=== PATIENT | male | born 1960 | race Caucasian/White ===

== ENCOUNTER 2017-03-22 09:53 | Inpatient (IN) | payer OTHER ==
[~2017-03-22] VITALS: Ht 180.3 cm; Wt 163.3 kg
--- NOTE | ~2017-03-22 | EKG ---
[address] [address] ELECTROCARDIOGRAM REPORT Name: ROSELINE ROCHE Room #: 443-P ADM IN M.R.#: [id number] Admission: 03/22/17 Attend Phys: Kiel Gutierrez MD Discharge: Date of : 64 Report #: [id number] THIS REPORT FOR: //name// [facility] ED Test Date: 2017-03-22 Test Time: 10:35:08 Pat Name: ROSELINE ROCHE Department: Room: 443 Gender: M Healthcare Interpreter: : 1960 Requested By: Yomi Fernandez Order Number: [id number] MD: Rebel Ramirez Measurements Intervals [place] Rate: 70 P: -17 WA: 155 QRS: -21 QRSD: 106 T: 28 QT: 400 QTc: 432 Interpretive Statements Sinus rhythm Borderline left axis deviation Low voltage, precordial leads Baseline wander in lead(s) I,III,aVL,aVF No previous ECG available for comparison Electronically Signed On 03-22-2017 17:38:02 CDT by Rebel Ramirez [email or web address] <ELECTRONICALLY SIGNED> By: Rebel Ramirez MD 03/22/17 1738 1035 1035 Rebel Ramirez MD /EPI
--- NOTE | ~2017-03-22 | P ---
[facility] [place] [address] PROCEDURE REPORT Name: ROSELINE ROCHE Room #: 443-P ADM IN M.R.#: [id number] Admission: 03/22/17 Attend Phys: Kiel Gutierrez MD Discharge: Date of : 64 Report #: [id number] THIS REPORT FOR: //name// CC: Phi Gutierrez DATE OF SERVICE: 03/23/2017 PERSONAL PHYSICIAN: Kiel Gutierrez MD CHIEF COMPLAINT: Diabetic foot ulcer. HISTORY OF PRESENT ILLNESS: This is a 57-year-old white male with a longstanding history of diabetes and a chronic ulceration on the plantar aspect of his right foot for the past 3 years, who is admitted now to the hospital for IV antibiotics as well as placement of a skin substitute to stimulate the wound healing. I spoke to the patient about the placement of the skin substitute. He is very agreeable to this and will be done at the bedside. PREPROCEDURE DIAGNOSES: 1. Chronic ulceration, right plantar foot with fat layer exposed. 2. Diabetes mellitus. 3. Generalized debility. POSTPROCEDURE DIAGNOSES: 1. Chronic ulceration, right plantar foot with fat layer exposed. 2. Diabetes mellitus. 3. Generalized debility. PROCEDURE: After timeout was taken and consent was obtained, the patient had excisional debridement done down to and including subcutaneous tissue with removal of viable and nonviable tissue. Curette and scalpel were used for the debridement; 100% of the ulcer was debrided for a total of less than 20 square cm was totally debrided. Predebridement measurements were 4.0 x 3.5 x 0.5 cm. Post-debridement measurements were 4.0 x 4.0 x 0.8 cm. Once the debridement had been performed, the patient had placement of EpiFix skin substitute sample over the wound bed. This was then affixed with Mepitel and Steri-Strips to hold this in place. The nurses were informed to leave this in place for the next two weeks. The patient then had ABD ____ over the area. Bleeding was minimal and easily controlled with ____. The patient tolerated the procedure well. Once [facility] [address] [place] [place] [address] PROCEDURE REPORT Name: ROSELINE ROCHE Room #: 443-P ADM IN [facility].#: [id number] Admission: 03/22/17 Attend Phys: Kiel Gutierrez MD Discharge: Date of : 64 Report #: [id number] again, this was an excisional debridement of less than 20 square cm of subcutaneous tissue with placement of a sample piece of EpiFix skin substitute. By: 09 0403 Jermaine Crenshaw MD /nt
[2017-03-22 09:58] VITALS: BP 136/96
[2017-03-22 10:30] LABS: ABSOLUTE NEUTROPHILS 4.3 thou/uL (1.4-8.2); BASOPHILS 2.1 % (0.0-2.0); EOSINOPHILS 1.8 % (0.0-3.0); HEMATOCRIT 41.9 % (42.0-52.0); HEMOGLOBIN 14.1 gm/dL (14.0-18.0); LYMPHOCYTES 24.1 % (24.0-44.0); MCH 26.7 pg (26.0-34.0); MCHC 33.7 g/dL (28.0-37.0); MCV 79.2 fL (80.0-100.0); MONOCYTES 7.6 % (1.0-8.0); PLATELET COUNT 179 thou/uL (150-400); POLYS 64.4 % (36.0-66.0); RBC 5.29 mil/uL (4.50-6.00); RDW 16.7 % (10.5-14.5); WBC 6.6 thou/uL (4.0-11.0)
[2017-03-22 10:31] LABS: MANUAL DIFF NO
[2017-03-22] MEDS ORDERED: LANTUS100 UNIT/M SUBQ (10:31)
[2017-03-22] MEDS ORDERED: HUMALOG100 UNIT/1 SUBQ (10:32)
[2017-03-22] MEDS ORDERED: KLOR-CON 1010 MEQ PO (10:32)
[2017-03-22] MEDS ORDERED: METFORMIN HCL500 MG PO (10:32)
[2017-03-22] MEDS ORDERED: AMARYL2 MG PO (10:33)
[2017-03-22] MEDS ORDERED: LOPRESSOR25 PO (10:33)
[2017-03-22 10:39] LABS: CALCIUM 9.6 mg/dL (8.5-10.1); CREATININE 0.9 mg/dL (0.7-1.3); POTASSIUM 4.4 mmol/L (3.5-5.1)
[2017-03-22 10:44] LABS: APTT 28.9 Seconds (24.5-32.8); PROTIME 10.6 Seconds (9.3-11.4)
[2017-03-22 10:46] LABS: ALBUMIN 3.6 g/dL (3.4-5.0); TOTAL BILIRUBIN 0.5 mg/dL (<0.1-1.0); TOTAL PROTEIN 8.4 g/dL (6.4-8.2)
[2017-03-22 12:42] VITALS: BP 145/76
[2017-03-22 13:40] VITALS: BP 145/76
[2017-03-22 16:00] VITALS: BP 134/64
[2017-03-22 21:31] VITALS: BP 150/73
[2017-03-22 23:59] VITALS: BP 137/47
[2017-03-23 04:40] VITALS: BP 144/69
[2017-03-23 06:23] LABS: HEMATOCRIT 38.3 % (42.0-52.0); HEMOGLOBIN 12.7 gm/dL (14.0-18.0); MCH 26.3 pg (26.0-34.0); MCV 79.5 fL (80.0-100.0); RBC 4.82 mil/uL (4.50-6.00); RDW 16.7 % (10.5-14.5); WBC 6.4 thou/uL (4.0-11.0)
[2017-03-23 06:41] LABS: CALCIUM 8.8 mg/dL (8.5-10.1); CREATININE 0.7 mg/dL (0.7-1.3); POTASSIUM 3.6 mmol/L (3.5-5.1)
[2017-03-23 07:50] VITALS: BP 129/70
[2017-03-23 16:10] VITALS: BP 147/74
[2017-03-23 20:00] VITALS: BP 165/66
[2017-03-24 06:15] VITALS: BP 169/75
[2017-03-24 08:11] VITALS: BP 142/79
[2017-03-24 14:27] VITALS: BP 134/64
[2017-03-24 19:12] VITALS: BP 155/80
[2017-03-25 05:37] VITALS: BP 156/76
[2017-03-25 08:44] VITALS: BP 144/78
[2017-03-25] MEDS ORDERED: DOXYCYCLINE 10100 MG PO (10:42)
== END 2017-03-25 13:30 | DRG 623 ==
LOC: ER 09:53 → 4S 11:09 → EROBS 11:09 → 4S 12:44
PROVIDERS: Hospitalist; Nurse Practitioner
PROC: 0HRMXK3 Replacement of Right Foot Skin with Nonautologous Tissue Substitute, Full Thickness, External Approach (ICD-10-PCS; principal; 2017-03-23)
PROC: 0JBQ0ZZ Excision of Right Foot Subcutaneous Tissue and Fascia, Open Approach (ICD-10-PCS; principal; 2017-03-23)
DX: E11.621 Type 2 diabetes mellitus with foot ulcer (principal); Z68.43 Body mass index [BMI] 50.0-59.9, adult; L97.519 Non-pressure chronic ulcer of other part of right foot with unspecified severity; I10 Essential (primary) hypertension; Z79.4 Long term (current) use of insulin; Z79.84 Long term (current) use of oral hypoglycemic drugs; Z79.899 Other long term (current) drug therapy; E66.9 Obesity, unspecified
CPT/HCPCS: 10102

== ENCOUNTER → 2017-05-23 | Outpatient (CLI) | payer OTHER ==
[~2017-05-23] MED LIST: AMARYL2 MG PO; DOXYCYCLINE 10100 MG PO; HUMALOG100 UNIT/1 SUBQ; KLOR-CON 1010 MEQ PO; LANTUS100 UNIT/M SUBQ; LOPRESSOR25 PO; METFORMIN HCL500 MG PO
== END ==
LOC: HYPER 06:59
DX: E11.621 Type 2 diabetes mellitus with foot ulcer (principal); L97.511 Non-pressure chronic ulcer of other part of right foot limited to breakdown of skin; E11.618 Type 2 diabetes mellitus with other diabetic arthropathy; E11.51 Type 2 diabetes mellitus with diabetic peripheral angiopathy without gangrene; I10 Essential (primary) hypertension; M19.90 Unspecified osteoarthritis, unspecified site; Z89.411 Acquired absence of right great toe; Z79.4 Long term (current) use of insulin; Z79.84 Long term (current) use of oral hypoglycemic drugs; Z89.421 Acquired absence of other right toe(s)

== ENCOUNTER → 2017-06-05 | Outpatient (CLI) | payer OTHER ==
[~2017-06-05] MED LIST changes: +GLUCOPHAGE1000 MG PO; +KEFLEX500 M1 PO; +LASIX 40 MG TAB40 M2 PO; +NOVOLOG100 UNIT/1 SUBQ
== END ==
LOC: HYPER 07:14
DX: E11.621 Type 2 diabetes mellitus with foot ulcer (principal); L97.422 Non-pressure chronic ulcer of left heel and midfoot with fat layer exposed; E11.618 Type 2 diabetes mellitus with other diabetic arthropathy; I10 Essential (primary) hypertension; M19.90 Unspecified osteoarthritis, unspecified site; E11.51 Type 2 diabetes mellitus with diabetic peripheral angiopathy without gangrene; Z89.411 Acquired absence of right great toe; Z79.84 Long term (current) use of oral hypoglycemic drugs; Z79.4 Long term (current) use of insulin; Z89.421 Acquired absence of other right toe(s)

== ENCOUNTER → 2017-06-19 | Outpatient (CLI) | payer OTHER | LOC: HYPER 07:02 | DX: E11.621 Type 2 diabetes mellitus with foot ulcer (principal); L97.412 Non-pressure chronic ulcer of right heel and midfoot with fat layer exposed; E11.40 Type 2 diabetes mellitus with diabetic neuropathy, unspecified; E11.610 Type 2 diabetes mellitus with diabetic neuropathic arthropathy; I73.9 Peripheral vascular disease, unspecified; I10 Essential (primary) hypertension; L84 Corns and callosities; M19.90 Unspecified osteoarthritis, unspecified site; Z89.421 Acquired absence of other right toe(s); Z79.4 Long term (current) use of insulin; Z79.84 Long term (current) use of oral hypoglycemic drugs ==

== ENCOUNTER → 2017-07-14 | Outpatient (CLI) | payer OTHER | LOC: HYPER 07-03 06:45 | DX: E11.621 Type 2 diabetes mellitus with foot ulcer (principal); L97.422 Non-pressure chronic ulcer of left heel and midfoot with fat layer exposed; E11.610 Type 2 diabetes mellitus with diabetic neuropathic arthropathy; E11.51 Type 2 diabetes mellitus with diabetic peripheral angiopathy without gangrene; I10 Essential (primary) hypertension; L84 Corns and callosities; M19.90 Unspecified osteoarthritis, unspecified site; Z79.4 Long term (current) use of insulin; Z79.84 Long term (current) use of oral hypoglycemic drugs; Z89.421 Acquired absence of other right toe(s) ==

== ENCOUNTER → 2017-07-31 | Outpatient (CLI) | payer OTHER | LOC: HYPER 07:13 | DX: E11.621 Type 2 diabetes mellitus with foot ulcer (principal); L97.512 Non-pressure chronic ulcer of other part of right foot with fat layer exposed; E11.610 Type 2 diabetes mellitus with diabetic neuropathic arthropathy; E11.51 Type 2 diabetes mellitus with diabetic peripheral angiopathy without gangrene; I10 Essential (primary) hypertension; L84 Corns and callosities; M19.90 Unspecified osteoarthritis, unspecified site; Z79.4 Long term (current) use of insulin; Z79.84 Long term (current) use of oral hypoglycemic drugs; Z89.411 Acquired absence of right great toe; Z89.421 Acquired absence of other right toe(s) ==

== ENCOUNTER → 2017-08-21 | Outpatient (CLI) | payer OTHER | LOC: HYPER 06:59 | DX: E11.621 Type 2 diabetes mellitus with foot ulcer (principal); L97.422 Non-pressure chronic ulcer of left heel and midfoot with fat layer exposed; E11.610 Type 2 diabetes mellitus with diabetic neuropathic arthropathy; E11.51 Type 2 diabetes mellitus with diabetic peripheral angiopathy without gangrene; I10 Essential (primary) hypertension; M19.90 Unspecified osteoarthritis, unspecified site; Z79.4 Long term (current) use of insulin; Z79.84 Long term (current) use of oral hypoglycemic drugs; Z89.411 Acquired absence of right great toe ==

== ENCOUNTER → 2017-09-11 | Outpatient (CLI) | payer OTHER ==
[~2017-09-11] MED LIST changes: -GLUCOPHAGE1000 MG PO; -KEFLEX500 M1 PO; -LASIX 40 MG TAB40 M2 PO; -NOVOLOG100 UNIT/1 SUBQ
== END ==
LOC: HYPER 08:45
DX: E11.621 Type 2 diabetes mellitus with foot ulcer (principal); L97.422 Non-pressure chronic ulcer of left heel and midfoot with fat layer exposed; E11.51 Type 2 diabetes mellitus with diabetic peripheral angiopathy without gangrene; I10 Essential (primary) hypertension; Z79.4 Long term (current) use of insulin; Z79.84 Long term (current) use of oral hypoglycemic drugs; M19.90 Unspecified osteoarthritis, unspecified site; Z89.411 Acquired absence of right great toe; Z89.421 Acquired absence of other right toe(s)

== ENCOUNTER → 2017-11-17 | Outpatient (CLI) | payer OTHER ==
[~2017-11-17] MED LIST changes: +GLUCOPHAGE1000 MG PO; +KEFLEX500 M1 PO; +LASIX 40 MG TAB40 M2 PO; +NOVOLOG100 UNIT/1 SUBQ
== END ==
LOC: HYPER 06:58
DX: E11.621 Type 2 diabetes mellitus with foot ulcer (principal); L97.412 Non-pressure chronic ulcer of right heel and midfoot with fat layer exposed; L97.422 Non-pressure chronic ulcer of left heel and midfoot with fat layer exposed; E11.610 Type 2 diabetes mellitus with diabetic neuropathic arthropathy; E11.51 Type 2 diabetes mellitus with diabetic peripheral angiopathy without gangrene; I10 Essential (primary) hypertension; L84 Corns and callosities; M19.90 Unspecified osteoarthritis, unspecified site; Z68.42 Body mass index [BMI] 45.0-49.9, adult; Z79.4 Long term (current) use of insulin; Z79.84 Long term (current) use of oral hypoglycemic drugs; Z89.411 Acquired absence of right great toe; Z89.421 Acquired absence of other right toe(s)

== ENCOUNTER → 2017-11-20 | Outpatient (CLI) | payer OTHER | LOC: HYPER 07:09 | DX: E11.621 Type 2 diabetes mellitus with foot ulcer (principal); L97.422 Non-pressure chronic ulcer of left heel and midfoot with fat layer exposed; E11.51 Type 2 diabetes mellitus with diabetic peripheral angiopathy without gangrene; E11.610 Type 2 diabetes mellitus with diabetic neuropathic arthropathy; I10 Essential (primary) hypertension; L84 Corns and callosities; Z79.4 Long term (current) use of insulin; Z79.84 Long term (current) use of oral hypoglycemic drugs; Z68.42 Body mass index [BMI] 45.0-49.9, adult; Z89.411 Acquired absence of right great toe; Z89.421 Acquired absence of other right toe(s) ==

== ENCOUNTER → 2017-11-27 | Outpatient (CLI) | payer OTHER | LOC: HYPER 07:27 | DX: E11.621 Type 2 diabetes mellitus with foot ulcer (principal); L97.422 Non-pressure chronic ulcer of left heel and midfoot with fat layer exposed; E11.51 Type 2 diabetes mellitus with diabetic peripheral angiopathy without gangrene; E11.610 Type 2 diabetes mellitus with diabetic neuropathic arthropathy; I10 Essential (primary) hypertension; L84 Corns and callosities; M19.90 Unspecified osteoarthritis, unspecified site; Z89.411 Acquired absence of right great toe; Z68.42 Body mass index [BMI] 45.0-49.9, adult; Z79.4 Long term (current) use of insulin; Z79.84 Long term (current) use of oral hypoglycemic drugs; Z89.421 Acquired absence of other right toe(s) ==

== ENCOUNTER → 2017-12-04 | Outpatient (CLI) | payer OTHER | LOC: HYPER 06:55 | DX: E11.621 Type 2 diabetes mellitus with foot ulcer (principal); L97.422 Non-pressure chronic ulcer of left heel and midfoot with fat layer exposed; E11.610 Type 2 diabetes mellitus with diabetic neuropathic arthropathy; E11.51 Type 2 diabetes mellitus with diabetic peripheral angiopathy without gangrene; I10 Essential (primary) hypertension; M19.90 Unspecified osteoarthritis, unspecified site; Z89.411 Acquired absence of right great toe; Z79.4 Long term (current) use of insulin; Z79.84 Long term (current) use of oral hypoglycemic drugs; Z89.421 Acquired absence of other right toe(s) ==

== ENCOUNTER → 2017-12-11 | Outpatient (CLI) | payer OTHER | LOC: HYPER 07:03 | DX: E11.621 Type 2 diabetes mellitus with foot ulcer (principal); L97.422 Non-pressure chronic ulcer of left heel and midfoot with fat layer exposed; E11.51 Type 2 diabetes mellitus with diabetic peripheral angiopathy without gangrene; E11.610 Type 2 diabetes mellitus with diabetic neuropathic arthropathy; I10 Essential (primary) hypertension; L84 Corns and callosities; M19.90 Unspecified osteoarthritis, unspecified site; Z89.411 Acquired absence of right great toe; Z79.4 Long term (current) use of insulin; Z79.84 Long term (current) use of oral hypoglycemic drugs; Z89.421 Acquired absence of other right toe(s) ==

== ENCOUNTER → 2017-12-18 | Outpatient (CLI) | payer OTHER | LOC: HYPER 06:54 | DX: E11.621 Type 2 diabetes mellitus with foot ulcer (principal); L97.511 Non-pressure chronic ulcer of other part of right foot limited to breakdown of skin; L97.422 Non-pressure chronic ulcer of left heel and midfoot with fat layer exposed; E11.51 Type 2 diabetes mellitus with diabetic peripheral angiopathy without gangrene; E11.610 Type 2 diabetes mellitus with diabetic neuropathic arthropathy; I10 Essential (primary) hypertension; L84 Corns and callosities; M19.90 Unspecified osteoarthritis, unspecified site; Z68.42 Body mass index [BMI] 45.0-49.9, adult; Z79.4 Long term (current) use of insulin; Z79.84 Long term (current) use of oral hypoglycemic drugs; Z89.411 Acquired absence of right great toe; Z89.421 Acquired absence of other right toe(s) ==

== ENCOUNTER → 2017-12-25 | Outpatient (CLI) | payer OTHER | LOC: HYPER 06:52 | DX: E11.621 Type 2 diabetes mellitus with foot ulcer (principal); L97.511 Non-pressure chronic ulcer of other part of right foot limited to breakdown of skin; L97.422 Non-pressure chronic ulcer of left heel and midfoot with fat layer exposed; E11.610 Type 2 diabetes mellitus with diabetic neuropathic arthropathy; E11.51 Type 2 diabetes mellitus with diabetic peripheral angiopathy without gangrene; I10 Essential (primary) hypertension; L84 Corns and callosities; M19.90 Unspecified osteoarthritis, unspecified site; Z89.411 Acquired absence of right great toe; Z79.4 Long term (current) use of insulin; Z79.84 Long term (current) use of oral hypoglycemic drugs; Z89.421 Acquired absence of other right toe(s) ==

== ENCOUNTER → 2018-01-01 | Outpatient (CLI) | payer OTHER | LOC: HYPER 06:41 | DX: E11.621 Type 2 diabetes mellitus with foot ulcer (principal); L97.511 Non-pressure chronic ulcer of other part of right foot limited to breakdown of skin; L97.422 Non-pressure chronic ulcer of left heel and midfoot with fat layer exposed; E11.51 Type 2 diabetes mellitus with diabetic peripheral angiopathy without gangrene; E11.610 Type 2 diabetes mellitus with diabetic neuropathic arthropathy; I10 Essential (primary) hypertension; L84 Corns and callosities; M19.90 Unspecified osteoarthritis, unspecified site; Z89.411 Acquired absence of right great toe; Z79.4 Long term (current) use of insulin; Z79.84 Long term (current) use of oral hypoglycemic drugs; Z89.421 Acquired absence of other right toe(s) ==

== ENCOUNTER → 2018-02-16 | Outpatient (CLI) | payer OTHER | LOC: HYPER 07:38 | DX: E11.621 Type 2 diabetes mellitus with foot ulcer (principal); L97.511 Non-pressure chronic ulcer of other part of right foot limited to breakdown of skin; L97.422 Non-pressure chronic ulcer of left heel and midfoot with fat layer exposed; E11.51 Type 2 diabetes mellitus with diabetic peripheral angiopathy without gangrene; E11.610 Type 2 diabetes mellitus with diabetic neuropathic arthropathy; L84 Corns and callosities; I10 Essential (primary) hypertension; M19.90 Unspecified osteoarthritis, unspecified site; Z89.421 Acquired absence of other right toe(s); Z79.4 Long term (current) use of insulin; Z79.84 Long term (current) use of oral hypoglycemic drugs; Z89.411 Acquired absence of right great toe ==

== ENCOUNTER → 2018-03-05 | Outpatient (CLI) | payer OTHER | LOC: HYPER 06:58 | DX: E11.621 Type 2 diabetes mellitus with foot ulcer (principal); L97.422 Non-pressure chronic ulcer of left heel and midfoot with fat layer exposed; E11.51 Type 2 diabetes mellitus with diabetic peripheral angiopathy without gangrene; E11.610 Type 2 diabetes mellitus with diabetic neuropathic arthropathy; I10 Essential (primary) hypertension; L84 Corns and callosities; M19.90 Unspecified osteoarthritis, unspecified site; Z89.411 Acquired absence of right great toe; Z79.4 Long term (current) use of insulin; Z79.84 Long term (current) use of oral hypoglycemic drugs; Z89.421 Acquired absence of other right toe(s) ==

== ENCOUNTER → 2018-03-12 | Outpatient (CLI) | payer OTHER | LOC: HYPER 06:55 | DX: E11.621 Type 2 diabetes mellitus with foot ulcer (principal); L97.511 Non-pressure chronic ulcer of other part of right foot limited to breakdown of skin; L84 Corns and callosities; E11.51 Type 2 diabetes mellitus with diabetic peripheral angiopathy without gangrene; E11.610 Type 2 diabetes mellitus with diabetic neuropathic arthropathy; I10 Essential (primary) hypertension; M19.90 Unspecified osteoarthritis, unspecified site; Z89.411 Acquired absence of right great toe; Z89.421 Acquired absence of other right toe(s); Z79.4 Long term (current) use of insulin; Z79.84 Long term (current) use of oral hypoglycemic drugs ==

== ENCOUNTER → 2018-03-19 | Outpatient (CLI) | payer OTHER | LOC: HYPER 06:51 | DX: E11.621 Type 2 diabetes mellitus with foot ulcer (principal); L97.511 Non-pressure chronic ulcer of other part of right foot limited to breakdown of skin; L84 Corns and callosities; E11.610 Type 2 diabetes mellitus with diabetic neuropathic arthropathy; E11.51 Type 2 diabetes mellitus with diabetic peripheral angiopathy without gangrene; I10 Essential (primary) hypertension; M19.90 Unspecified osteoarthritis, unspecified site; Z79.4 Long term (current) use of insulin; Z89.411 Acquired absence of right great toe; Z89.421 Acquired absence of other right toe(s) ==

== ENCOUNTER → 2018-03-26 | Outpatient (CLI) | payer OTHER | LOC: HYPER 06:53 | DX: E11.621 Type 2 diabetes mellitus with foot ulcer (principal); L97.511 Non-pressure chronic ulcer of other part of right foot limited to breakdown of skin; E11.51 Type 2 diabetes mellitus with diabetic peripheral angiopathy without gangrene; E11.610 Type 2 diabetes mellitus with diabetic neuropathic arthropathy; L84 Corns and callosities; M19.90 Unspecified osteoarthritis, unspecified site; I10 Essential (primary) hypertension; Z79.4 Long term (current) use of insulin; Z79.84 Long term (current) use of oral hypoglycemic drugs; Z89.411 Acquired absence of right great toe; Z89.421 Acquired absence of other right toe(s) ==

== ENCOUNTER → 2018-04-27 | Outpatient (CLI) | payer OTHER | LOC: HYPER 04-09 07:11 | DX: E11.621 Type 2 diabetes mellitus with foot ulcer (principal); L97.422 Non-pressure chronic ulcer of left heel and midfoot with fat layer exposed; L84 Corns and callosities; E11.610 Type 2 diabetes mellitus with diabetic neuropathic arthropathy; E11.51 Type 2 diabetes mellitus with diabetic peripheral angiopathy without gangrene; I10 Essential (primary) hypertension; M19.90 Unspecified osteoarthritis, unspecified site; Z79.4 Long term (current) use of insulin; Z79.84 Long term (current) use of oral hypoglycemic drugs; Z89.411 Acquired absence of right great toe; Z89.421 Acquired absence of other right toe(s) ==

== ENCOUNTER 2018-12-24 16:13 | Inpatient (IN) | payer OTHER ==
[~2018-12-24] VITALS: Ht 180.3 cm; Wt 105.3 kg
[~2018-12-24 16:13] MED LIST changes: -ENOXAPARIN40 MG/0.1 SUBQ; -HYDROCODON-ACE1 EAC7 PO; -ZOSYN 3.3753.375 GM IV
[2018-12-24 16:14] VITALS: BP 99/69
[2018-12-24 17:03] LABS: ABSOLUTE NEUTROPHILS 4.5 thou/uL (1.4-8.2); BASOPHILS 1.4 % (0.0-2.0); EOSINOPHILS 1.4 % (0.0-3.0); HEMATOCRIT 43.2 % (42.0-52.0); HEMOGLOBIN 14.3 gm/dL (14.0-18.0); LYMPHOCYTES 24.6 % (24.0-44.0); MCH 26.8 pg (26.0-34.0); MCHC 33.1 g/dL (28.0-37.0); MCV 80.9 fL (80.0-100.0); PLATELET COUNT 143 thou/uL (150-400); POLYS 64.6 % (36.0-66.0); RBC 5.34 mil/uL (4.50-6.00)
[2018-12-24 17:10] LABS: CALCIUM 8.7 mg/dL (8.5-10.1); CREATININE 0.9 mg/dL (0.7-1.3); POTASSIUM 4.2 mmol/L (3.5-5.1)
[2018-12-24 17:16] LABS: ALBUMIN 3.3 g/dL (3.4-5.0); TOTAL BILIRUBIN 0.6 mg/dL (<0.1-1.0); TOTAL PROTEIN 7.5 g/dL (6.4-8.2)
[2018-12-24] MEDS ORDERED: LANTUS100 UNIT/M SUBQ (18:09)
[2018-12-24] MEDS ORDERED: METFORMIN HCL500 MG PO (18:10)
[2018-12-24] MEDS ORDERED: AMARYL2 MG PO (18:10)
[2018-12-24 19:35] LABS: ALBUMIN 3.4 g/dL (3.4-5.0); TOTAL PROTEIN 7.7 g/dL (6.4-8.2)
[2018-12-24 20:00] LABS: TSH 1.748 uIU/mL (0.358-3.740)
[2018-12-25 05:18] LABS: HEMATOCRIT 40.4 % (42.0-52.0); HEMOGLOBIN 13.4 gm/dL (14.0-18.0); MCH 26.8 pg (26.0-34.0); MCHC 33.2 g/dL (28.0-37.0); MCV 80.7 fL (80.0-100.0); RDW 15.9 % (10.5-14.5); WBC 7.3 thou/uL (4.0-11.0)
[2018-12-25 05:27] LABS: CALCIUM 8.5 mg/dL (8.5-10.1); CREATININE 0.7 mg/dL (0.7-1.3); MAGNESIUM 1.8 mg/dL (1.8-2.4); POTASSIUM 3.9 mmol/L (3.5-5.1)
[2018-12-25 13:07] VITALS: BP 126/64
[2018-12-25 13:54] VITALS: BP 133/65; BP 140/68
[2018-12-25 14:37] VITALS: BP 149/65
[2018-12-25 19:47] VITALS: BP 151/87
--- NOTE | 2018-12-25 21:00 | NUR ---
ASSUMED CARE OF PATIENT APPROX. 1430. PATIENT VITALS STABLE, NO SIGNS OF DISTRESS. IV IN RIGHT FOREARM PATENT. ASSESSMENT COMPLETED. WOUND CARE IN TO EVALUATE AND DRESS WOUND. WILL CONTINUE TO MONITOR.
--- NOTE | 2018-12-26 04:53 | NUR ---
Patient alert and oriented x4. Patient pleasant and cooperative. Patient tearful at one point but would not discuss as to why. Patient has denied pain throughout the night. Patient took medication whole without difficulty. Right foot dressing is currently clean, dry and intact. Patient received dose of abx Vancomycin. Tolerated well. Patient ambulates to the bathroom with SBA. Continent of bladder. Patient needs education re-inforced regarding using call light and waiting for staff assist prior to transfers and completion of ADLs. Patient remains a fall risk. Patient had a fall approximately 2 months ago that caused a shoulder fracture. Patient has been resting well through the night. Patient expresses no concers at this time.
[2018-12-26 06:06] LABS: HEMATOCRIT 40.6 % (42.0-52.0); HEMOGLOBIN 13.3 gm/dL (14.0-18.0); MCH 26.5 pg (26.0-34.0); MCHC 32.8 g/dL (28.0-37.0); RBC 5.01 mil/uL (4.50-6.00); RDW 15.9 % (10.5-14.5); WBC 6.5 thou/uL (4.0-11.0)
[2018-12-26 06:17] LABS: CALCIUM 9.2 mg/dL (8.5-10.1); CREATININE 0.8 mg/dL (0.7-1.3); POTASSIUM 3.9 mmol/L (3.5-5.1)
[2018-12-26 08:02] VITALS: BP 143/78
[2018-12-26 09:35] VITALS: BP 143/78
--- NOTE | 2018-12-26 09:43 | NUR ---
Order received for OT Eval and treat. Pt declines OT stating that he is independent with self care and functional mobility and does not require acute OT at this time. Will discharge from OT, 12/26/2018.
--- NOTE | 2018-12-26 13:12 | HC ---
[facility] [place] [address] CONSULTATION Name: ROSELINE ROCHE Room #: 462-P ADM IN M.R.#: [id number] Admission: 12/24/18 ������������������ Attend Phys: Estrellita Washington MD Discharge: ������������������ Date of : 64 Report #: [id number] THIS REPORT FOR: //name// CC: JEWELL physician/PCP CRYSTAL Washington DATE OF SERVICE: 12/25/2018 CHIEF COMPLAINT: Diabetic foot ulcer. HISTORY OF PRESENT ILLNESS: This is a 58-year-old male patient with a history of type 2 diabetes mellitus, who presented to the wound clinic with a new ulceration on the plantar aspect of his right foot. He states this started about 2 weeks ago with a very small area and has grown with increasing drainage and redness and swelling of his foot. He is quite concerned about the possibility of losing his foot through amputation. He was admitted through the Wound Clinic for further evaluation and treatment, antibiotic therapy. PAST MEDICAL HISTORY: Positive for history of type 2 diabetes mellitus, hypertension, previous right hip surgery, multiple toe amputations on the right side, peripheral neuropathy. SOCIAL HISTORY: Negative for alcohol or tobacco use. FAMILY HISTORY: Positive for diabetes and pulmonary emboli. MEDICATIONS: Include insulin, Klor-Con, Lasix, Lopressor, Lantus, Glucophage, Amaryl. ALLERGIES: No known drug allergies. REVIEW OF SYSTEMS: CONSTITUTIONAL: The patient denies fever, chills or weight loss. NEUROLOGICAL: The patient has peripheral neuropathy. Denies other focal weakness, numbness or tingling. EYES: The patient denies visual changes, redness, or drainage. ENT: The patient denies earache, nasal drainage or sore throat. CARDIOVASCULAR: The patient denies chest pain, palpitations or diaphoresis. PULMONARY: The patient denies cough or shortness of breath. GASTROINTESTINAL: The patient denies nausea, vomiting, diarrhea or abdominal pain. ORTHOPEDIC: The patient does complain of swelling, redness and drainage as well as new ulceration on the plantar aspect of his right foot. Other systems in a 14-point review of systems are negative. [facility] [address] [place] [address] CONSULTATION Name: ROSELINE ROCHE Room #: 462-P [facility] IN M.R.#: [id number] Admission: 12/24/18 ������������������ Attend Phys: Estrellita Washington MD Discharge: ������������������ Date of : 64 Report #: [id number] PHYSICAL EXAMINATION: VITAL SIGNS: At this time include temperature 37.2, pulse 87, respiratory rate 22, blood pressure 149/65. GENERAL: This is a well-developed male patient who appears to be in minimal distress. HEENT: Head normocephalic. Nose and throat clear. NECK: Supple. LUNGS: Clear. HEART: Regular. ABDOMEN: Bowel sounds present. Abdomen is obese, nontender. EXTREMITIES: Lower extremities demonstrate palpable distal pulses. He has a circular ulcer on the plantar aspect of his right foot at the base of the fifth metatarsal. This does tunnel very close to bone, although there is no exposed bone. The tissue is healthy, clean, and granulating. There is surrounding erythema and warmth. LABORATORY AND DIAGNOSTIC DATA: Laboratory studies include white blood cell count 7.3 with hemoglobin 13.4, hematocrit 40.4. Sodium 140, potassium 3.9, chloride 102, CO2 of 30, BUN 16, creatinine 0.7, glucose is 168, calcium 8.5, magnesium 1.8, CRP is 10.6. X-ray of the right foot demonstrates no bony abnormality, but evidence of soft tissue ulceration approaching the fifth metatarsal shaft. CLINICAL IMPRESSION: 1. Diabetic foot infection to the right foot. 2. Wound infection involving the deeper portion of the foot, approaching the base of the fifth metatarsal. 3. Diabetes mellitus with hyperglycemia. 4. Diabetic peripheral neuropathy. RECOMMENDATIONS: At this point in time, the patient is started on empiric antibiotic therapy. Cultures have been taken from the foot. We will look at sed rate, CRP as well as obtain an MRI. Start packing the wound daily with silver alginate. He will need to offload as much as possible and additional decision making be forthcoming pending review of the radiological studies. I appreciate being asked to see him in consultation. ��������������������������������������������� <ELECTRONICALLY SIGNED> ���������������������������������������� By: Ze Zhao MD ��������������������������������������������� 12/26/18 1312 1611 0900 Ze Zhao MD /nt
--- NOTE | 2018-12-26 13:45 | NUR ---
Nutrition: pt seen due to dx of right foot diabetic ulcer, sent to hospital by wound clinic. Familiar with pt from previous admits. Extreme class 3 obesity with BMI 53. BG 131-291. Last A1C 9.0 in September. Weights showing possible increase of 14# since September if accurate. Pt has a very good appetite, understands protein needs. Does drink a protein supplement at home. RD will offer Ensure max daily (appropriate for DM). Have offered diet review on several admits and pt continues to refuse stating he knows what to do. Noncompliance is suspected. Would benefit from weight loss. RD available for education needs if pt open. Otherwise consider low nutrition risk.
[2018-12-26 14:53] VITALS: BP 135/84
--- NOTE | 2018-12-26 17:04 | NUR ---
PT ADMITTED RELATED TO RIGHT FOOT DIABETIC ULCER. CM REVIEWED CHART AND SPOKE WITH CARE TEAM. CM MET WITH PT AT BEDSIDE THIS DAY. PT IS A&O X4. CM ROLE INTRODUCED. PT INDICATED HE LIVES IN A HOUSE WITH HIS SPOUSE WITH NO STEPS. 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 PT INDICATED NO DME OR HH HX. PT INDICATED HE PLANS TO RETURN HOME ONCE MEDICALLY STABLE. CM TO FOLLOW INDICATED WITH DC PLANNING.
--- NOTE | 2018-12-26 19:32 | NUR ---
ASSUMED CARE OF PATIENT AT 0715, PATIENT ALERT AND ORIENTED X 4. PATIENT UP WITH SBA TO BATHROOM, FALL RISK DUE TO RECENT FALL AT HOME 2 MONTHS AGO. PATIENT HAS RIGHT AC IV IN PLACE, RECEIVED VANCO IV ANTIBIOTIC THIS SHIFT. BLOOD SUGAR MONITORING ORDERED. WOUND CARE SAW THE PATIENT AND WOUND WAS DONE, PICTURE TAKEN. MRI TO RIGHT FOOT TODAY. NO C/O PAIN THIS SHIFT. WILL CONTINUE TO MONITOR.
[2018-12-27 06:00] LABS: HEMATOCRIT 39.7 % (42.0-52.0); HEMOGLOBIN 13.1 gm/dL (14.0-18.0); MCH 26.8 pg (26.0-34.0); MCHC 33.1 g/dL (28.0-37.0); MCV 80.9 fL (80.0-100.0); RBC 4.91 mil/uL (4.50-6.00); WBC 6.9 thou/uL (4.0-11.0)
[2018-12-27 06:05] LABS: CALCIUM 8.8 mg/dL (8.5-10.1); CREATININE 0.7 mg/dL (0.7-1.3); MAGNESIUM 1.9 mg/dL (1.8-2.4); POTASSIUM 3.8 mmol/L (3.5-5.1)
[2018-12-27 07:33] VITALS: BP 127/66
--- NOTE | 2018-12-27 09:36 | NUR ---
PROGRESS PT A/O X4 DENIES PAIN ANTIBIOTICS INFUSED ORDERED UP WITH SBA VOIDING QS ACCUCHECKS AND LANTUS CONTINUES. DRESSING C/D/I POST OP BOOT IN PLACE CONTINUE POC.
--- NOTE | 2018-12-27 18:27 | NUR ---
PATIENT ALERT AND ORIENTED X 4. LCTA, RESPIRATION EVEN AND UNLABORED. BS+X4, ABD SOFT AND ROUND NON-TENDER TO TOUCH. PATIENT CONSUMED 100% BREAKFAST. THIS RN RECEIVED CALL FROM WOUND CARE NURSE AT ABOUT 1100HOUR TO PLACE PATIENT ON NPO STATUS DUE TO SURGERY TO RIGHT FOOT. PATIENT NOTIFIED, PLACED ON NPO. PATIENT TAKEN TO SURGERY AT ABOUT 1530HOURS. PATIENT RETURNED FROM SURGERY AT 1835HOURS ACCORDING TO REPORT, IND RIGHT FOOT COMPLETED, WRAPPED IN BRITTON WRAP. PATIENT TO BE NON-RAMILA BEARING TO RIGHT FOOT. PATIENT IN BED RESTING AT THIS TIME, HE DENIES PAIN AT THIS TIME, WILL CONTINUE TO MONITOR.
[2018-12-27 20:47] VITALS: BP 155/82
[2018-12-28 05:20] LABS: HEMATOCRIT 39.7 % (42.0-52.0); HEMOGLOBIN 13.3 gm/dL (14.0-18.0); MCH 27.1 pg (26.0-34.0); MCHC 33.5 g/dL (28.0-37.0); MCV 80.8 fL (80.0-100.0); RBC 4.92 mil/uL (4.50-6.00); RDW 16.4 % (10.5-14.5); WBC 6.6 thou/uL (4.0-11.0)
[2018-12-28 05:32] LABS: CALCIUM 8.8 mg/dL (8.5-10.1); CREATININE 0.8 mg/dL (0.7-1.3); POTASSIUM 3.8 mmol/L (3.5-5.1)
[2018-12-28 08:00] VITALS: BP 115/63
--- NOTE | 2018-12-28 08:59 | NUR ---
PROGRESS PT UP WITH SBA AND WALKER NON WT BEARING TO THAT RIGHT FOOT DOES WELL MAINTAINING WT BEARING STATUS. DENIES PAIN. ANTIBIOTICS CHANGED FROM VANCO TO AMPICILLIN FIRST DOSE GIVEN WITHOUT ANY DIFFICULTIES. VOIDING QS, ACCUCHECKS AND LANTUS CONTINUE. DRESSING TO FOOT HAS SOME FRESH BLEEDING NOTED TO BE CHANGED BY DAY SHIFT PT WAS SLEEPING VOIDS PER URINAL CONTINUE TO MONITOR
--- NOTE | 2018-12-28 14:25 | HC ---
[facility] [place] [address] CONSULTATION Name: ROSELINE ROCHE Room #: 462-P ADM IN M.R.#: [id number] Admission: 12/24/18 ������������������ Attend Phys: Estrellita Washington MD Discharge: ������������������ Date of : 64 Report #: [id number] THIS REPORT FOR: //name// CC: JEWELL physician/PCP CRYSTAL Washington DATE OF SERVICE: 12/27/2018 INFECTIOUS DISEASE CONSULTATION REASON FOR CONSULTATION: I was asked to evaluate concerning diabetic neuropathic foot ulcer. HISTORY OF PRESENT ILLNESS: A 58-year-old diabetic with peripheral neuropathy and amputations of 4-5 toes on the right foot. He has Charcot foot changes. Two weeks ago noticed a wound to the plantar aspect of his lateral midfoot. This progressed. He presented to the wound care service outpatient clinic. He had been on no antibiotics prior to his hospitalization. Denies any fever, chills or sweats. No specific injury noted. He has had malaise without nausea, vomiting or diarrhea. Blood glucose control has been fair. He is obese. ALLERGIES: None known. MEDICATIONS: As noted on JUL, was given 1 dose of Zosyn on admission, then remains on vancomycin. Other medicines as noted. PAST MEDICAL HISTORY: Amputations of toes on the right foot, peripheral neuropathy, vasculopathy, diabetes, hypertension, right hip surgery, tonsillectomy. FAMILY HISTORY: Noncontributory. SOCIAL HISTORY: Nonsmoker. No significant alcohol intake. REVIEW OF SYSTEMS: Ten-point review was negative other than what is described above. PHYSICAL EXAMINATION: VITAL SIGNS: He is afebrile, hemodynamically stable. GENERAL: He is alert and cooperative and pleasant, sitting up in his chair. He is obese. SKIN: Without rash or decubitus. No palpable adenopathy. HEENT: Eyes without scleral icterus. Mouth without mucositis. NECK: Supple. LUNGS: Clear. [facility] [address] [place] [address] CONSULTATION Name: ROSELINE ROCHE Room #: 462-P [facility] IN [facility].#: [id number] Admission: 12/24/18 ������������������ Attend Phys: Estrellita Washington MD Discharge: ������������������ Date of : 64 Report #: [id number] HEART: Regular, without murmur, gallop or rub. ABDOMEN: Soft and nontender, with no hepatosplenomegaly or mass appreciated. EXTREMITIES: Pulses in his groin were normal. Palpable pulses in his feet. He had Charcot foot changes on the right with amputation of all toes except #2. He had no sensation to touch in his foot. There was an ulcer, full thickness, over the lateral aspect of his right foot near the fifth metatarsal base. There was no purulent drainage. There was sloughing skin base of the wound. Small area of erythema surrounding this. Trace edema. PSYCHIATRIC: Mood was normal. LABORATORY STUDIES: Hemoglobin 13, WBC 6.9, platelet 134,000. Creatinine 0.7. Culture of the wound base on 12/24/2018 has grown penicillin-susceptible Enterococcus faecalis, mixed lacy. Repeat cultures done today at the time of debridement. MRI scan shows extensive wound to the tissue space of the fifth metatarsal. No osteomyelitis. Vancomycin trough was 12. IMPRESSION: 1. Charcot foot with peripheral neuropathy and neuropathic infected ulcer, so far no evidence of osteomyelitis. Cultures have revealed enterococcus. 2. Diabetes. 3. Hypertension. 4. Obesity. RECOMMENDATION: We will continue with Unasyn. Await surgical debridement today. If not done, would proceed with vascular studies. Diabetic management. Weight loss diet. Offload right foot. ��������������������������������������������� <ELECTRONICALLY SIGNED> ���������������������������������������� By: Volodymyr Root MD ��������������������������������������������� 12/28/18 1425 2228 0039 Volodymyr Root MD /nt
[2018-12-28 15:00] VITALS: BP 136/87
--- NOTE | 2018-12-28 16:24 | NUR ---
CARE TEAM INDICATED THAT PT WILL LIKELY BE HERE OVER THE WEEKEND. THERAPY INDICATED PT WILL LIKELY BE ABLE TO DC HOME WITH HH SERVICES ONCE HE IS MEDCIALLY STABLE. PT INDICATED DESIRE FOR WHEELCHAIR UPON DC. CM PROVIDED INFO TO PHYSICAIN ON WHAT NEEDS TO BE CHARTED IN PROG NOTE FOR ORDER. CM TO FOLLOW INDICATED WITH DC PLANNING.
[2018-12-28 19:10] VITALS: BP 149/86
--- NOTE | 2018-12-28 20:06 | NUR ---
PT A&OX4, VSS, DENIES PAIN. PATIENT HAD I&D COMPLETED 12/27/18. PATIENT DRESSING HAS SANGUINEOUS DRAINAGE ABOUT 8CM IN DIAMETER. WOUND DOCTOR AWARE AND ORDERS TO NOT CHANGE DRESSING UNTIL SEEN BY SURGEON FIRST. ANTIBIOTICS RAN ORDERED, WILL CONTINUE TO MONITOR.
--- NOTE | 2018-12-29 01:02 | NUR ---
PATIENT AOX4 MAKES NEEDS KNOWN. PATIENT DENIED PAIN OR DISCOMFORT. RIGHT FOOT ULCER DRESSING HAS MINIMUM DRAINAGE, DR. WILLAMS WANT ANYTHING DONE TO THE DRESSING. PATIENT NEEDS MINIMUM ASSISTANCE WITH ADL, BED MOBILITY, TRANSFER AND TOILETING. FALL PRECAUTION IN PLACE.PATIENT IN BED ASLEEP AT THIS TIME BREATHING REGULAR AND UNLABOURED.
[2018-12-29 04:07] VITALS: BP 141/74
[2018-12-29 07:19] VITALS: BP 130/72
[2018-12-29 14:10] VITALS: BP 150/81
--- NOTE | 2018-12-29 18:17 | NUR ---
PT A&OX4, VSS, DENIES PAIN. DRESSING TO RIGHT FOOT REMAINS INTACT WITH DRIED DRAINAGE ABOUT 10 CM. AWAITING ORDERS TO CHANGE DRESSING. ANTIBIOTICS RAN ORDERED. NO SIGNS OF DISTRESS. WILL CONTINUE TO MONITOR.
[2018-12-29 20:00] VITALS: BP 179/91
--- NOTE | 2018-12-30 06:05 | NUR ---
Pt. rested quietly at intervals during the night when checked on during frequent rounds. He offers no c/o pain or discomfort. Bed alarm is on.
[2018-12-30 08:00] VITALS: BP 140/84
[2018-12-30 15:00] VITALS: BP 152/90
[2018-12-30 19:57] VITALS: BP 119/62
--- NOTE | 2018-12-30 20:15 | NUR ---
Assumed pt care this am, dressing on the right foot dry and intact. IV on the right hand inflitrated , removed and placed on the right fore arm 22g. Pt uses his urinal noted and mentioned to the hospitalist coloer of urine is dark yellow, encouraged increase in fluid intake. Pt denies pain , no signs or verbalizations of distress have been noted. POC followed.
--- NOTE | 2018-12-31 04:30 | NUR ---
Pt. rested quietly at intervals during the night when checked on during frequent rounds. Dressing to his right foot is intact. He offers no c/o pain. Bed alarm is on.
[2018-12-31 04:53] VITALS: BP 135/62
[2018-12-31 08:12] VITALS: BP 132/86
[2018-12-31] MEDS ORDERED: ENOXAPARIN40 MG/0.1 SUBQ (10:59)
[2018-12-31] MEDS ORDERED: HYDROCODON-ACE1 EAC7 PO (11:00)
[2018-12-31 14:46] VITALS: BP 132/86
--- NOTE | 2018-12-31 14:59 | NUR ---
DISCHARGE PLANNING. ANTICIAPTED DISCHARGE TO HOME TODAY. AWAITING INFECTIOUS DISEASE CLEARANCE. HOME HEALTH RECOMMENDED AT DISCHARGE. REFERRAL FAXED TO [facility]. PATIENT WILL NEED WOUND CARE, PT AND OT SERVICES. VERIFIED REFERRAL RECEIVED. AWAITING RESPONSE FROM [facility]. UNIT SW AWARE. FOLLOWING.
--- NOTE | 2018-12-31 15:52 | NUR ---
CM ORDERED A WHEELCHAIR FOR PT TO TAKE HOME WITH HIM THROUGH [employer]. WC WAS DELIVERED THIS DAY. [facility] GO TO PT'S SERVICE AREA AND THEY ARE ABLE TO ACCEPT PT FOR SERVICES UPON DC. CM FAXED FACESHEET AND MED LIST TO [employer] FOR THEM TO RUN BENEFITS FOR POSSIBLE HOME IV ABX UPON DC. CM WAITING COVERAGE. CM TO FOLLOW INDICATED WITH DC PLANNING.
[2018-12-31 19:34] VITALS: BP 126/101
--- NOTE | 2018-12-31 20:31 | NUR ---
PT A&OX4, VSS, DENIES PAIN. NEW DRESSING APPLIED TO LEFT FOOT VIA WOUND CARE TEAM. PATIENT DENIES CHEST PAIN AND SOA. PATIENT DUE TO DISCHARGE TOMORROW PER DR. HOOPER. ANTIBIOTICS GIVEN ORDERED. WILL CONTINUE TO MONITOR. PRESCIPTIONS IN PT CHART, NEEDS SIGNATURE FROM DR. BAE.
--- NOTE | 2019-01-01 03:52 | NUR ---
Pt. rested quietly at intervals during the night when checked on during frequent rounds. He offers no c/o pain. Dressing to right foot is intact. Bed alarm is on.
[2019-01-01 08:00] VITALS: BP 152/89
--- NOTE | 2019-01-01 10:20 | NUR ---
VASCULAR ACCESS NURSE ROUNDING TO PLACE THIS PATIENTS MIDLINE. PATIENT HAS MANY QUESTIONS AND CONCERNS. QUESTIONS ANSWERED AND THE PROCEDURE WELL BENIFITS AND RISKS EXPLAINED TO THE PATIENT. THIS PATIENT IS ASKING FOR ME TO COME BACK LATER TODAY TO PLACE THE LINE HE IS "UNEASY ABOUT THE SITUATION" AND WANTS TO OBTAIN MORE INFO FROM THE DISCHARGE TEAM ABOUT IF HE IS TO DO THE INFUSION HIMSELF, HAVE A HOME HEALTH NURSE COME IN OR WILL BE GOING TO A FACILITY. (HE EXPRESSED HE IS VERY UNCOMFORTABLE GOING HOME WITHE THE LINE) HIS NURSE LUNA WAS UPDATED ABOUT THE CONCERNS AND WILL NOTIFY ME WHEN PATIENT CONSENTS TO LINE PLACEMENT
[2019-01-01] MEDS ORDERED: ZOSYN 3.3753.375 GM IV ×2 (10:23→11:36)
--- NOTE | 2019-01-01 11:07 | PATH ---
[facility] [address] [place] [address] PATHOLOGY RPT PROCEDURE Name: ROSELINE ROCEH Room #: 462-P ADM IN M.R.#: [id number] ������������������ Admission: 12/24/18 ������������������ Date of : 64 Discharge: Report #: [id number] Path Case #: [id number] [facility] Accession Number: [id number] . 01 Material submitted: . foot - SOFT TISSUE RIGHT FOOT. Modifiers: right . 01 Clinical history: . Rt diabetic foot . 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 (IUV/db; 12/31/2018) LBQ/12/31/2018 . 02 Electronically signed: . Melony Valladares MD, Pathologist NPI- [id number] . 01 Gross description: . Received in formalin labeled "Marcos, Roseline, soft tissue right foot," are two irregular segments of pale francisco soft tissue admixed with pale yellow, lobulated adipose tissue measuring 2.8 x 2.1 x 0.8 cm and 2.8 x 2.2 x 1.6 cm in greatest dimensions. Skin is not identified grossly. Serial sectioning through both segments reveals firm, pale francisco to yellow-francisco and partially hemorrhagic cut surfaces. Both segments are submitted representatively in cassette A1. (DAC; 12/28/2018) XDC/XDC . 02 Pathologist provided ICD-10: E11.621 . 02 CPT . 467242 Specimen Comment: A courtesy copy of this report has been sent to Specimen Comment: [phone], . Specimen Comment: Report sent to / DR METCALF Specimen Comment: A duplicate report has been generated due to demographic updates. Performed at: [address], [place], [place] [id number] MD Mart Webster MD Phone: [phone] Performed at: [address] [address] PATHOLOGY RPT PROCEDURE Name: ROSELINE ROCHE Room #: 462-P ADM IN M.R.#: [id number] ������������������ Admission: 12/24/18 ������������������ Date of : 64 Discharge: Report #: [id number] Path Case #: [id number] [facility] [place] [id number] MD Melony Valladares MD Phone: [phone]
--- NOTE | 2019-01-01 13:54 | NUR ---
PATIENT IS NOW CONSENTING TO MIDLINE PLACEMENT AFTER DR. RATLIFF ROUNDED AND SPOKE WITH HIM. VERBAL CONSENT OBTAINED. A #4F POWER MIDLINE WAS PLACED PER HOSPITAL POLICY. LINE WAS TRIMMED TO 15CM AND ADVANCED TO 10CM LEAVING 5EXTERNAL. +BR +FLUSH. LINE SECURED AND RELEASED FOR USE
--- NOTE | 2019-01-01 14:23 | NUR ---
CM HAD SPOKEN WITH PT YESTERDAY ABOUT GOING HOME WITH HH SERVICES AND IV ABX. HH WAS SET UP THROUGH [facility] THEY CAME AND SAW PT THIS AM AND HE INDICATED TO THEM THAT HE DIDN'T WANT TO GO HOME ID HE NEEDED IV ABX. CM FOLLOWED UP WITH PT AND HE INDICATED [facility]. [facility]FF HAD REFERRED HIM TO LAST YEAR. IT WAS [facility]. REFERRAL WAS SENT AND THEY ACCEPTED PT. CHART COPY MADE. ORDERS WERE FAXED. PT AND SPOUSE ARE AWARE AND AGREEABLE. THE WHEELCHAIR PP WAS ISSUED WAS PICKED BACK UP. [facility] ARRANGED FOR [id number]. REPORT TO BE CALLED TO . NO OTHER CM INTERVETNION INDICATED CASE CLOSED.
--- NOTE | 2019-01-01 15:57 | NUR ---
AAOX4 VERY PLEASANT AND COOPERATIVE. DENIES PAIN. GOOD APPETITE. IV NURSE PLACED MIDLINE IV. REPORT CALLED [facility]. RIGHT FOOT DRESSING INTACT WITH [facility].
--- NOTE | 2019-01-02 13:09 | O ---
[facility] [address] OPERATIVE REPORT Name: ROSELINE ROCHE Room #: 462-P [facility] IN M.R.#: [id number] Admission: 12/24/18 ������������������ Attend Phys: Estrellita Washington MD Discharge: 01/01/19 ������������������ Date of : 64 Report #: [id number] THIS REPORT FOR: //name// CC: JEWELL physician/PCP CRYSTAL Washington DATE OF SERVICE: 12/27/2018 SURGEON: Volodymyr Izaguirre DPM PREOPERATIVE DIAGNOSES: Chronic ulceration, right plantar foot with type 2 diabetes mellitus and Charcot foot deformity. POSTOPERATIVE DIAGNOSES: Chronic ulceration, right plantar foot with type 2 diabetes mellitus and Charcot foot deformity. PROCEDURE: 1. Plantar fasciectomy, right foot. 2. Incision and drainage, right plantar foot. 3. Excision of ulceration with debridement of subcutaneous tissue, right foot. 4. Application of allogenic dermal graft (PriMatrix). TOURNIQUETS: None. INJECTABLES: None. SPECIMENS: Soft tissue, right foot. CULTURES: Soft tissue, right foot, aerobic and anaerobic. ESTIMATED BLOOD LOSS: Roughly 20 mL. DESCRIPTION OF PROCEDURE: The patient was brought to the OR and placed on the table supine with induction of MAC anesthesia. No tourniquet or local anesthetic was utilized. The extremity was prepped and draped aseptically. A #10 surgical scalpel was used to excise the ulcer and I removed a large subcutaneous phlegmon as well as the plantar fascia. The soft tissue specimen was sent for surgical pathology. I sent a ambulatory services representative portion of the sample for soft tissue aerobic and anaerobic cultures. I used electrocautery for hemostasis. I used the Misonix ultrasonic debridement device to debride the wound margins as well as a scalpel. Further cautery was utilized and the wound was flushed with 1 liter of sterile saline and dried. A PriMatrix bovine dermal graft was placed into the wound cavity and the remaining portion was placed over the plantar surface of the foot and covered the wound and was stapled in place. [address] [address] OPERATIVE REPORT Name: ROSELINE ROCHE Room #: 462-P [facility] IN M.R.#: [id number] Admission: 12/24/18 ������������������ Attend Phys: Estrellita Washington MD Discharge: 01/01/19 ������������������ Date of : 64 Report #: [id number] This was covered with Adaptic, 4 x 4s, ABDs, Kerlix, and Pete. The patient left the OR with no bleeding or complications noted. ��������������������������������������������� <ELECTRONICALLY SIGNED> ���������������������������������������� By: Volodymyr Izaguirre DPM ��������������������������������������������� 01/02/19 1309 [id number] [id number] Volodymyr Izaguirre DPM /nt
== END 2019-01-01 15:59 | DRG 574 ==
LOC: ER 16:13 → EROBS 16:43 → 4W 16:43 → EROBS 12-25 01:07 → 4W 12-25 13:53
PROVIDERS: Internal Medicine; Physician Assistant; ADMIT Internal Medicine
PROC: 0HRMXK3 Replacement of Right Foot Skin with Nonautologous Tissue Substitute, Full Thickness, External Approach (ICD-10-PCS; principal; 2018-12-27)
PROC: 0JBQ0ZZ Excision of Right Foot Subcutaneous Tissue and Fascia, Open Approach (ICD-10-PCS; principal; 2018-12-27)
DX: L03.115 Cellulitis of right lower limb (principal); E44.1 Mild protein-calorie malnutrition; E11.621 Type 2 diabetes mellitus with foot ulcer; I10 Essential (primary) hypertension; L97.519 Non-pressure chronic ulcer of other part of right foot with unspecified severity; E11.42 Type 2 diabetes mellitus with diabetic polyneuropathy; E11.65 Type 2 diabetes mellitus with hyperglycemia; E11.610 Type 2 diabetes mellitus with diabetic neuropathic arthropathy; E11.51 Type 2 diabetes mellitus with diabetic peripheral angiopathy without gangrene; B95.2 Enterococcus as the cause of diseases classified elsewhere; E66.01 Morbid (severe) obesity due to excess calories; Z68.32 Body mass index [BMI] 32.0-32.9, adult; Z89.421 Acquired absence of other right toe(s); Z79.4 Long term (current) use of insulin; Z79.84 Long term (current) use of oral hypoglycemic drugs; Z79.899 Other long term (current) drug therapy; Z83.3 Family history of diabetes mellitus; Z82.49 Family history of ischemic heart disease and other diseases of the circulatory system
CPT/HCPCS: 10040; 27000; 50010; 50101; 50386; 51412; 57091; 57119; 57120; 57136; 62110; 62850; 70005

== ENCOUNTER → 2018-12-24 | Outpatient (CLI) | payer OTHER ==
[~2018-12-24] MED LIST changes: +ENOXAPARIN40 MG/0.1 SUBQ; +HYDROCODON-ACE1 EAC7 PO; +ZOSYN 3.3753.375 GM IV
== END ==
LOC: HYPER 07:48
DX: E11.621 Type 2 diabetes mellitus with foot ulcer (principal); L97.422 Non-pressure chronic ulcer of left heel and midfoot with fat layer exposed; L97.511 Non-pressure chronic ulcer of other part of right foot limited to breakdown of skin; E11.51 Type 2 diabetes mellitus with diabetic peripheral angiopathy without gangrene; E11.610 Type 2 diabetes mellitus with diabetic neuropathic arthropathy; I10 Essential (primary) hypertension; M19.90 Unspecified osteoarthritis, unspecified site; Z89.411 Acquired absence of right great toe; Z79.4 Long term (current) use of insulin; Z79.84 Long term (current) use of oral hypoglycemic drugs; Z89.421 Acquired absence of other right toe(s)

== ENCOUNTER → 2019-02-11 | Outpatient (CLI) | payer OTHER ==
[~2019-02-11] MED LIST changes: +ENOXAPARIN40 MG/0.1 SUBQ; +HYDROCODON-ACE1 EAC7 PO; +ZOSYN 3.3753.375 GM IV
== END ==
LOC: HYPER 06:46
DX: E11.621 Type 2 diabetes mellitus with foot ulcer (principal); L97.422 Non-pressure chronic ulcer of left heel and midfoot with fat layer exposed; L97.512 Non-pressure chronic ulcer of other part of right foot with fat layer exposed; E11.610 Type 2 diabetes mellitus with diabetic neuropathic arthropathy; I10 Essential (primary) hypertension; E11.51 Type 2 diabetes mellitus with diabetic peripheral angiopathy without gangrene; M19.90 Unspecified osteoarthritis, unspecified site; Z89.411 Acquired absence of right great toe; Z68.42 Body mass index [BMI] 45.0-49.9, adult; Z79.4 Long term (current) use of insulin; Z79.84 Long term (current) use of oral hypoglycemic drugs; Z89.421 Acquired absence of other right toe(s)

== ENCOUNTER 2019-03-06 16:20 | Inpatient (IN) | payer OTHER ==
[~2019-03-06] VITALS: Ht 180.3 cm; Wt 164.6 kg
[2019-03-06 15:00] VITALS: BP 130/84
[2019-03-06 17:40] VITALS: BP 151/95
[2019-03-06 18:25] LABS: ABSOLUTE NEUTROPHILS 16.7 thou/uL (1.4-8.2); BASOPHILS 0.3 % (0.0-2.0); HEMATOCRIT 36.7 % (42.0-52.0); HEMOGLOBIN 11.9 gm/dL (14.0-18.0); LYMPHOCYTES 3.8 % (24.0-44.0); MCH 26.8 pg (26.0-34.0); MCHC 32.4 g/dL (28.0-37.0); MCV 82.7 fL (80.0-100.0); PLATELET COUNT 189 thou/uL (150-400); POLYS 86.9 % (36.0-66.0); RBC 4.44 mil/uL (4.50-6.00); RDW 15.3 % (10.5-14.5); WBC 19.2 thou/uL (4.0-11.0)
[2019-03-06 18:30] LABS: URINE BLOOD 2+ (Negative); URINE CLARITY CLEAR; URINE COLOR YELLOW; URINE GLUCOSE-RANDOM* 3+ (Negative); URINE KETONES TRACE (Negative); URINE LEUKOCYTES-REFLEX NEGATIVE (Negative); URINE NITRITE-REFLEX NEGATIVE (Negative); URINE PROTEIN (DIPSTICK) 2+ (Negative); URINE SPECIFIC GRAVITY 1.025 (1.005-1.035); URINE UROBILINOGEN >= 8.0 E.U./dl (0.2-1.0)
[2019-03-06 18:32] LABS: ICTOTEST (BILI CONFIRMATORY) Negative (Negative); URINE BILIRUBIN NEGATIVE (Negative)
[2019-03-06 18:32] LABS: CALCIUM 8.3 mg/dL (8.5-10.1); CREATININE 1.1 mg/dL (0.7-1.3); MAGNESIUM 1.8 mg/dL (1.8-2.4); POTASSIUM 3.8 mmol/L (3.5-5.1)
[2019-03-06 18:40] LABS: AMORPHOUS URATES Few /LPF (None Seen); BACTERIA-REFLEX None Seen /HPF (None Seen); CASTS None Seen /LPF (None Seen); MUCUS 0-3 Light strn/LPF (None Seen); SQUAMOUS 0-3 Few /LPF (0-3); URINE RBC None Seen /HPF (0-2); URINE WBC-REFLEX None Seen /HPF (0-5)
--- NOTE | 2019-03-06 20:08 | NUR ---
PT admitted from [facility] for R foot wound infection at 1730pm,pt is A&OX3, RN has called DR to report pt's fever and HR 120-140, BS 319 , new order received, starts IV fliuds , stat LAB , and blood culture and urine culture have done, wound dr has seeing this pt, wound culture and wound pictures have done, RN will report to next shift to keep eye on pt and check lab results and starts IV ABX.
[2019-03-06 20:10] VITALS: BP 112/79
[2019-03-06 23:55] VITALS: BP 125/77
[2019-03-07] VITALS (7 sets, daily range): BP systolic 130–152; BP diastolic 69–104
--- NOTE | 2019-03-07 02:27 | EKG ---
[address] [address] ELECTROCARDIOGRAM REPORT Name: ROSELINE ROCHE Room #: 364-P ADM IN M.R.#: [id number] Admission: 03/06/19 Attend Phys: Shane Fletcher MD Discharge: Date of : 64 Report #: [id number] THIS REPORT FOR: //name// [facility] Test Date: 2019-03-06 Test Time: 22:47:10 Pat Name: ROSELINE ROCHE Department: Room: 364 P Gender: M Certified Retinal Angiographer: tremaine ibarra : 1960 Requested By: Jessy Godoy Order Number: [id number] MD: Isra Modi Measurements Intervals [place] Rate: 126 P: IL: QRS: 99 QRSD: 87 T: -8 QT: 314 QTc: 455 Interpretive Statements Atrial flutter/fibrillation Borderline right axis deviation Poor R-wave progression Nonspecific ST-T wave changes Baseline wander in lead(s) V2 Compared to ECG 03/22/2017 10:35:08 Sinus rhythm no longer present Electronically Signed On 03-07-2019 2:27:08 CDT by Isra Modi [email or web address] <ELECTRONICALLY SIGNED> By: Isra Modi MD 03/07/19 0227 2247 46 Isra Modi MD /EPI
--- NOTE | 2019-03-07 05:57 | NUR ---
Temp max this shift 99.5. Denies any pain. IV abt given. Med list verified with pt. and . Pt. has been tachycardic and irregular. A fib confirmed by EKG. HR has been in the 120's to 138 .[facility] notified. Cardizem bolus and gtt. given. Titrated gtt. per protocol. HR now has been in the mid 110's to low 120's with activities.He slept intermittently during the night.Another IV placed on right upper arm.C/o nausea this am, zofran given with good relief. Dressing on righ foot done. Pt. placed in bariatric bed at shift change. Bed alarm on for safety. Will continue to monitor. Cardiology consult called.
[2019-03-07 07:54] LABS: ABSOLUTE NEUTROPHILS 13.5 thou/uL (1.4-8.2); BASOPHILS 0.3 % (0.0-2.0); EOSINOPHILS 0.1 % (0.0-3.0); HEMATOCRIT 35.3 % (42.0-52.0); HEMOGLOBIN 11.5 gm/dL (14.0-18.0); LYMPHOCYTES 6.2 % (24.0-44.0); MCH 26.9 pg (26.0-34.0); MCHC 32.5 g/dL (28.0-37.0); MCV 82.8 fL (80.0-100.0); MONOCYTES 8.3 % (1.0-8.0); PLATELET COUNT 177 thou/uL (150-400); POLYS 85.1 % (36.0-66.0); RBC 4.26 mil/uL (4.50-6.00); RDW 15.5 % (10.5-14.5); WBC 15.9 thou/uL (4.0-11.0)
--- NOTE | 2019-03-07 07:54 | NUR ---
SATHISH RECEIVED A VM 03/07 AT 0754 FROM [employer] AT [facility] STATING SHE HAS A POSIVITE BLOOD CULTURE FOR PATIENT AND WAS WANTING TO SPEAK WITH PATIENTS NURSE. DIANCE CAN BE REACHED AT [phone]. SATHISH CALLED BEDSIDE RN SEVERIANO TO NOTIFY HER OF INFO.
[2019-03-07 08:05] LABS: CALCIUM 8.5 mg/dL (8.5-10.1); CREATININE 0.8 mg/dL (0.7-1.3); POTASSIUM 3.4 mmol/L (3.5-5.1)
--- NOTE | 2019-03-07 10:28 | 2DMMODE ---
[facility] [address] [place] [address] 2 D/M-MODE ECHOCARDIOGRAM Name: ROSELINE ROCHE Room #: 364-P ADM IN M.R.#: [id number] Admission: 03/06/19 Attend Phys: Shane Fletcher MD Discharge: Date of : 64 Report #: [id number] THIS REPORT FOR: //name// APPROVED REPORT Study performed: 03/07/2019 08:33:28 EXAM: Comprehensive 2D, Doppler, and color-flow Echocardiogram Patient Location: Bedside Room #: 364 Status: routine BSA: 2.69 HR: 104 bpm BP: 131/81 mmHg Other Information Study Quality: Technically Difficult Technically limited study due to body habitus. Indications Diabetes Atrial Fibrillation Hypertension/HDD Echo Enhancing Agent Indication: Endocardial border delineation Agent(s) / Amount(s) Used: Optison 3 cc 2D Dimensions RVDd: 48.28 mm IVSd: 14.12 (7-11mm) LVOT Diam: 25.42 (18-24mm) LVDd: 42.70 mm PWd: 14.98 (7-11mm) Ascending Ao: 34.66 (22-36mm) LVDs: 32.25 (25-40mm) Aortic Root: 35.87 mm IVC: 24.00 mm Volumes Left Atrial Volume (Systole) Single Plane 4CH: 68.62 mL Single Plane 2CH: 59.22 mL LA ESV Index: 26.00 mL/m2 Aortic Valve AoV Peak Danyel.: 1.08 m/s AO Peak Gr.: 4.63 mmHg LVOT Max P.80 mmHg [facility] [address] [place] [address] 2 D/M-MODE ECHOCARDIOGRAM Name: ROSELINE ROCHE Room #: 364-P ADM IN M.R.#: [id number] Admission: 03/06/19 Attend Phys: Shane Fletcher MD Discharge: Date of : 64 Report #: [id number] LVOT Max V: 0.84 m/s JENNIFFER Vmax: 3.95 cm2 Mitral Valve MV Decel. Time: 121.55 ms MV E Max Danyel.: 1.41 m/s IVRT: 43.83 ms Pulmonary Valve PV Peak Danyel.: 0.90 m/s PV Peak Gr.: 3.26 mmHg Tricuspid Valve TR Peak Danyel.: 3.61 m/s RAP Estimate: 15.00 mmHg TR Peak Gr.: 52.11 mmHg PA Pressure: 67.00 mmHg Left Ventricle The left ventricle is normal size. Hypokinesis of mid and apical anteroseptal wall. Mild concentric left ventricular hypertrophy. Left ventricular systolic function is mild to moderately decreased. LVEF is 40-45%. This study is not technically sufficient to allow evaluation of the LV diastolic function due to atrial fibrillation. Right Ventricle Right ventricle is dilated. The right ventricular systolic function is normal. Atria The left atrium size is normal. Right atrium is moderately dilated. Aortic Valve Mild aortic valve sclerosis. No aortic regurgitation is present. There is no aortic valvular stenosis. Mitral Valve Mild mitral annular calcification. There is no mitral valve regurgitation noted. No evidence of mitral valve stenosis. Tricuspid Valve The tricuspid valve is normal in structure. Trace tricuspid regurgitation. PAP is estimated at 60 mmHg. Pulmonic Valve The pulmonary valve is normal in structure. There is no pulmonic [facility] [place] [address] 2 D/M-MODE ECHOCARDIOGRAM Name: ROSELINE ROCHE Room #: 364-P [facility] IN M.R.#: [id number] Admission: 03/06/19 Attend Phys: Shane Fletcher MD Discharge: Date of : 64 Report #: [id number] valvular regurgitation. Great Vessels The aortic root is normal in size. IVC is dilated and collapses <50% with inspiration. Pericardium There is no pericardial effusion. <Conclusion> The left ventricle is normal size. Mild concentric left ventricular hypertrophy. Left ventricular systolic function is mild to moderately decreased. Right ventricle is dilated. Right atrium is moderately dilated. Mild aortic valve sclerosis. Mild mitral annular calcification. Trace tricuspid regurgitation. PAP is estimated at 60 mmHg. <ELECTRONICALLY SIGNED> By: Alexi Muñiz MD 03/07/19 1028 1028 27 Alexi Muñiz MD /INF
--- NOTE | 2019-03-07 11:03 | NUR ---
RD consult received for pt with chronic left foot wound. Admit with sepsis, left foot infection, CRP 331. Hx poor controlled diabetes, PAD, HTN. Several admits in past. Extreme class III obesity BMI 50.6 and stable wts > yr around 360 lb. BG 258-319. Multiple physician consultants (Endo, ID, surgical, wound care). NPO for prodedure. Eats 100% and usually will drink a high protein supplement (Ensure Max which is low calorie, very high protein)-will order. Often refuses any type nutrition education. Low nutrition risk.
--- NOTE | 2019-03-07 12:09 | NUR ---
DR BIRD NOTIFIED OF PT NOT HAVING MRI THIS AM DUE TO BEING ON CARDIZEM GTT. DR STATES TO RESTART CARB CONTROLLED DIET AND HE WILL REASSESS THE PT TOMORROW AM.
--- NOTE | 2019-03-07 12:10 | NUR ---
[facility] FAXED OVER POSITIVE BLOOD CULTURE RESULTS FOR PT. DR HOOPER ON UNIT AND NOTIFIED. RESULTS PUT IN PT'S CHART. GRAM POSITIVE COCCI IN CHAINS.
--- NOTE | 2019-03-07 14:39 | NUR ---
ASSESSMENT: CM REVIEWED CHART AND MET WITH PATIENT AT THE BEDSIDE. PT WAS A DIRECT ADMIT FROM [facility] AND IS SEPTIC SECONDARY TO HIS WOUND. PT REPORTS THAT HE LIVES IN A HOUSE WITH HIS . PT HAS NO STEPS TO ENTER OR TO USE ONCE INSIDE. PT REPORTS THE HE AMBULATES INDEPENDENTLY AND IS INDEPENDENT WITH ADLS. PT REPORTS THAT HE HAS [facility] AND CM SPOKE WITH PTS AND THEY DO NOT WANT TO USE [facility] ANY LONGER AND WERE NOT IMPRESSED WITH THEIR CARE. CM NOTIFIED [facility] OF THIS. PT HAS BEEN TO [facility] IN THE PAST. CM DISCUSSED ROLE. PT WILL LIKELY BENEFIT FROM HH/SNF AT DISCHARGE. CM WILL CONTINUE TO FOLLOW TO ASSIST NEEDED.
--- NOTE | 2019-03-07 18:40 | NUR ---
PT DID NOT HAVE MRI DUE TO CARDIZEM GTT. PT DID NOT HAVE SURGERY ON FOOT TODAY.
[2019-03-08 01:06] LABS: GLYCOHEMOGLOBIN (HGB A1C) 8.4 % (4.8-5.6)
[2019-03-08 01:54] VITALS: BP 142/104
[2019-03-08 03:36] VITALS: BP 113/74
--- NOTE | 2019-03-08 05:01 | NUR ---
MOVED PT FROM RM 364 TO 361 FOR BETTER TELE PIE CUTTER DUE TO PT BEING ON CARD DRIP. TITRATED DRIP BEGINNING AT 2300 AND MOVED TO 15mg/HR AND HR WAS 104 AND STILL SHOWING AFIB. 2400 MOVED RATE TO 10 AND HR WAS 96. 0100 MOVED RATE TO 5 AND PT HAS BEEN RUNNING MID 90'S FOR HR AND SHOWING AFIB. PT WANTED TO SLEEP IN CHAIR LAST NIGHT HE SAID IT WAS MORE COMFORTABLE. WOUND CARE WAS PERFORMED AT 0200. FALL PRECAUTIONS IN PLACE. HOURLY ROUNDING.
[2019-03-08 06:14] LABS: ABSOLUTE NEUTROPHILS 9.5 thou/uL (1.4-8.2); BASOPHILS 0.5 % (0.0-2.0); EOSINOPHILS 0.9 % (0.0-3.0); HEMATOCRIT 34.5 % (42.0-52.0); HEMOGLOBIN 11.2 gm/dL (14.0-18.0); LYMPHOCYTES 8.3 % (24.0-44.0); MCHC 32.4 g/dL (28.0-37.0); MCV 83.2 fL (80.0-100.0); MONOCYTES 7.2 % (1.0-8.0); PLATELET COUNT 189 thou/uL (150-400); POLYS 83.1 % (36.0-66.0); RBC 4.15 mil/uL (4.50-6.00); RDW 15.5 % (10.5-14.5); WBC 11.4 thou/uL (4.0-11.0)
[2019-03-08 06:25] LABS: CALCIUM 8.4 mg/dL (8.5-10.1); CREATININE 1.1 mg/dL (0.7-1.3); POTASSIUM 4.3 mmol/L (3.5-5.1)
[2019-03-08 08:10] VITALS: BP 129/85
--- NOTE | 2019-03-08 08:10 | HC ---
[facility] [place] [address] CONSULTATION Name: ROSELINE ROCHE Room #: 361-P ADM IN M.R.#: [id number] Admission: 03/06/19 Attend Phys: Shane Fletcher MD Discharge: Date of : 64 Report #: [id number] THIS REPORT FOR: //name// CC: Shane Fletcher FAM unknown CRYSTAL BURGOS DATE OF SERVICE: 03/07/2019 CONSULTING PHYSICIAN: Dr. Renetta Callahan. REASON FOR CONSULTATION: Uncontrolled type 2 diabetes mellitus. HISTORY OF PRESENT ILLNESS: This is a 59-year-old male patient whose medical background is known for multiple medical issues including type 2 diabetes mellitus diagnosed many years ago, and complicated by peripheral vascular disease, Charcot foot, and the need for multiple toe amputations of the right foot. The patient has been dealing with a nonhealing right foot wound and was admitted with sepsis and cellulitis after referral from [facility]. When asked about a detailed description of his diabetes therapeutic regimen, the patient was clearly unable to provide exact details on that and just went on to say that he receives insulin. The patient's chart shows that he is on Lantus insulin at 45 units b.i.d. as well as Humalog insulin, which he says he probably takes 30 units 3 times a day of in addition to metformin 500 mg twice a day and glimepiride 2 mg b.i.d. The patient acknowledges that he does not check his blood sugars nearly at all and that he basically relies on blood sugar measurements conducted by home health who visits him 3 times a week and these have typically been above 200 mg/dL. He is not aware of issues pertaining to hypoglycemia. The patient is not aware of diabetic retinopathy. COMPLICATIONS: Coronary artery disease or diabetic nephropathy. The patient is also known to have hypertension and is on therapy with metoprolol 50 mg b.i.d. REVIEW OF SYSTEMS: CONSTITUTIONAL: Noted for fatigue, tiredness, but not body weight changes, subjective fever, but not chills. HEENT: Negative for sinus pain, ear drainage. PULMONARY: Negative for shortness of breath, cough or hemoptysis. CARDIAC: Negative for chest pain, palpitations, syncope or presyncope. GASTROINTESTINAL: Negative for abdominal pain, nausea, vomiting or changes in bowel frequency. NEUROLOGY: Negative for loss of consciousness, headaches, severe or frequent [facility] [address] [place] [address] CONSULTATION Name: ROSELINE ROCHE Room #: 361-P [facility] IN M.R.#: [id number] Admission: 03/06/19 Attend Phys: Shane Fletcher MD Discharge: Date of : 64 Report #: [id number] seizure activity. PSYCHIATRY: Negative for hallucinations, delusions, significant behavior changes. SKIN: Noted for swelling, hyperemia and skin changes associated with cellulitis of the right foot. Otherwise, his review of system is noncontributory other than those mentioned in HPI. PAST MEDICAL HISTORY: 1. Type 2 diabetes mellitus as noted above. 2. Peripheral vascular disease, status post amputation of all, but one toe over the right foot. 3. Hypertension. 4. Obesity. 5. Diabetic peripheral neuropathy. OUTPATIENT MEDICATIONS: Include Lantus insulin 45 units b.i.d. in addition to Humalog insulin 30 units before meals, metformin 500 mg b.i.d., glimepiride 2 mg b.i.d., metoprolol 50 mg b.i.d., furosemide 40 mg daily, KCl 10 mEq b.i.d. ALLERGIES: The patient has no known drug allergies. FAMILY HISTORY: Noncontributory. SOCIAL HISTORY: The patient is . Denies use of tobacco, alcohol or illicit drugs. PHYSICAL EXAMINATION: GENERAL: Pleasant male patient who is not in apparent pain or distress. VITAL SIGNS: Blood pressure is 136/83 mmHg, heart rate is 96 beats per minute, respirations 24 per minute, temperature 37.3 degrees. CONSTITUTIONAL: The patient was lying in bed, seemingly comfortably, not in apparent distress. HEENT: Anicteric sclerae. Intact extraocular motions. NECK: Supple, without JVD, carotid bruits or lymphadenopathy. I do not appreciate thyromegaly. CHEST: Clear to auscultation with good air entry bilaterally. No wheeze or crackles noted. There is no percussion noted over both lung nickerson. HEART: Regular rate and rhythm without murmurs or gallops. ABDOMEN: Soft and lax without tenderness or organomegaly, has active bowel sounds. EXTREMITIES: Lower extremity exam is noted for ankle edema bilaterally. The patient is status post multiple toe amputations over the right foot. NEUROLOGIC: Awake, alert and oriented to time, place and person. Marked sensory deficits are noted over both feet, but otherwise no motor deficits are appreciated. [facility] [address] [place] [address] CONSULTATION Name: MELCHORROSELINE Room #: 361-P [facility] IN M.R.#: [id number] Admission: 03/06/19 Attend Phys: Shane Fletcher MD Discharge: Date of : 64 Report #: [id number] PSYCHIATRIC: Pleasant, interactive, appropriate. Normal mood and affect. LABORATORY DATA: Blood glucose on arrival was 390 mg/dL and has since dropped only to 258 mg/dL. Otherwise; sodium 133, potassium 3.4, chloride 98, CO2 of 26, anion gap 9, BUN 15, creatinine 0.8, AST 18, total bilirubin 0.6, calcium 8.5, magnesium 1.8, alkaline phosphatase 130, ALT 23, protein 7.5, GFR 100. Total cholesterol not performed during this admission. CRP 331.3. INR 1. White blood count 15.9, hemoglobin 11.5, hematocrit 35.3, platelets 177. TSH 1.748 in November 2018. Hemoglobin A1c was 9.0 in 09/2017. Current hemoglobin A1c is pending. ASSESSMENT AND PLAN: 1. Type 2 diabetes mellitus, uncontrolled: The patient's diabetic outlook is uncontrolled judging by his reported blood glucose values as well as by his historic hemoglobin A1c and existing complications. The patient has ongoing issues with a nonhealing right foot ulcer and cellulitis, which hyperglycemia certainly contributes to. His level of hyperglycemia again attests to lack of control during this admission. The patient was counseled about the necessity of improving his level of control in order to avoid short-term and long-term complications of diabetes, which he seems to understand well. During this hospital stay, the patient will be placed on coverage with Humalog supplemental scale, moderate intensity, glimepiride will be continued at the same dose of 2 mg b.i.d., I will avoid metformin at the time being on the account that the patient might need to undergo imaging studies or other interventions where metformin is preferably off. Given the likely contribution of poor dietary habits at home to his very high insulin requirement, I will step-in with a much lower scheduled insulin coverage in the form of Lantus insulin 35 units q.p.m. in addition to Humalog scheduled coverage for meals at 15 units per meal in addition to the above noted agents. Blood glucose monitoring will commence a.c. and at bedtime so as to monitor his progress and adjust his medications as needed. 2. Hypertension. The patient will be maintained on his current antihypertensive regimen. 3. Cellulitis/sepsis. The patient has received vancomycin and Zosyn and will be evaluated by Infectious Disease team for further antibiotic treatment recommendations. Wound specialists are also following and we certainly appreciate their recommendations as well. I appreciate this consultation by Dr. Callahan. <ELECTRONICALLY SIGNED> By: Malick Mcqueen MD 03/08/19 0810 1228 0351 Malick Mcqueen MD /nt
[2019-03-08 11:50] VITALS: BP 115/75
--- NOTE | 2019-03-08 13:08 | NUR ---
ON-GOING ASSESSMENT: CM REVIEWED CHART AND SPOKE WITH ATTENDING. PTS MRI SHOWS OSTEO AND AWAITING RECOMMENDATIONS FROM SURGERY AT THIS TIME PATIENT MAY BENEFIT FROM BKA. NO WEEKEND DISCHARGE ANTICIPATED. CM WILL CONTINUE TO FOLLOW TO ASSIST NEEDED.
[2019-03-08 16:41] VITALS: BP 139/83
--- NOTE | 2019-03-08 17:20 | NUR ---
pt's assessment has done, pt is A&OX3, pt is contiuning iv abx and wound care, BS management, pt has done MARÍA today, RN has called dr to report results: R foot osteomyelitis, RN has reported to ID about pt's abnormal blood culture result from [facility]. no new order at this time.pt has slowly meeting care plan goals.
[2019-03-08 20:30] VITALS: BP 145/89
[2019-03-09] VITALS (8 sets, daily range): BP systolic 117–150; BP diastolic 71–93
--- NOTE | 2019-03-09 03:24 | NUR ---
ASSESSMENT: PT REMAIN ALERT AND ORIENT TIMES THREE, SATS UP IN THE RECLINER ALL NIGHT. VSS, AFEBRILE, A-FIB PER MONITOR. DENIES PAIN. NPO AT MN FOR POSSIBLE DEBRIDEMENT IN THE AM PER PT. WAS INCONT TO URINE IN THE STOOL TONIGHT. PT IS PLEASANT. FAMILY MEMBERS WERE AT THE BEDSIDE AT THE BEGINNING OF THE SHIFT. SLOW PROGRESS TOWARDS DC GOALS, WILL CONTINUE TO MONITOR.
[2019-03-09 05:28] LABS: CALCIUM 8.6 mg/dL (8.5-10.1); HEMATOCRIT 34.5 % (42.0-52.0); HEMOGLOBIN 11.1 gm/dL (14.0-18.0); MCH 27.1 pg (26.0-34.0); MCHC 32.3 g/dL (28.0-37.0); POTASSIUM 4.4 mmol/L (3.5-5.1); RBC 4.1 mil/uL (4.50-6.00); RDW 15.5 % (10.5-14.5); WBC 9.7 thou/uL (4.0-11.0)
--- NOTE | 2019-03-09 19:56 | NUR ---
pt is A&OX3, pt has procedure done: R foot wound incision and drainage, pt is tolerative, pt is continuing iv fluid , iv abx and bs managemnet , pt denies pain and n/v ,pt is on o2 2L/MIN/NC , pt's vs and o2sat are stable ,
[2019-03-10 03:05] VITALS: BP 132/78
--- NOTE | 2019-03-10 05:56 | NUR ---
ASSUMED CARE AT 1900. PT DENIES PAIN IN RIGHT FOOT, REPORTS NEUROPATHY IN FOOT. POST-OP DRESSING INTACT, NO SIGNS OF BLEEDING, EXPOSED PORTION OF FOOT IS WARM AND PINK WITH BRISK CAP-REFILL; CALF AND ANKLE ARE VERY WARM AND RED WITH 2+ PITTING EDEMA, KEEPING RIGHT FOOT ELEVATED IN BED AND NONWEIGHT BEARING. DENIES SOB OR NAUSEA. HAVING DARK YELLOW/KELLY URINE OUT VIA URINAL. INITIALLY SATTING MID 90'S ON RA, BUT WHILE ASLEEP SATS DROPPED TO 87%, PLACED BACK ON 2L AND CAME UP TO 97%. PT HAS HAD A REGULAR HEART RATE OF 90 IN SR OVERNIGHT, NO AFIB OBSERVED ON THE MONITOR. IVF INFUSING OVERNIGHT. NO OTHER CONCERNS, WILL CONTINUE TO MONITOR.
[2019-03-10 09:17] VITALS: BP 155/83
[2019-03-10 11:40] VITALS: BP 128/90
[2019-03-10 17:00] VITALS: BP 141/79
--- NOTE | 2019-03-10 19:31 | NUR ---
pt is A&A X3, pt is continuing iv fliud , and iv abx, pt's bs has improved, SURGICAL DR has changing pt's R foot dressing, dressing is CDI, PT 'S VS ARE STABLE, PT denies pain at this time.pt gets up to chair with assist.
[2019-03-10 20:15] VITALS: BP 147/81
[2019-03-11 04:30] VITALS: BP 144/80
--- NOTE | 2019-03-11 05:58 | NUR ---
ASSUMED CARE AT 1900. AT SHIFT CHANGE, PT NEEDED TO URINATE AND CHANGE SHORTS THAT HAD BECOME SOILED; REQUIRED MAX ASSIST TO STAND UP, AND DESPITE EDUCATING TO KEEP WEIGHT OFF RIGHT FOOT, WAS CLEARLY PLACING SOME WEIGHT ONTO IT. PT HAD MODERATE AMOUNT OF DRAINAGE (ABOUT 5-6 CM WIDE) THROUGH BANDAGE ONTO BIRTTON WRAP, BUT DID NOT GROW LARGER THE REST OF THE NIGHT. PT DENIES PAIN, NAUSEA, OR SOB. PT REQUESTED TO SLEEP IN RECLINER OVERNIGHT. START OF SHIFT, PT'S HR WAS A REGULAR RATE ABOUT 90; ABOUT MIDNIGHT PT GRADUALLY MORE IRREGULAR, HR IN 70'S, AND APPEARS TO BE IN AFIB. NO OTHER CONCERNS, WILL CONTINUE TO MONITOR.
[2019-03-11 07:31] VITALS: BP 145/93
--- NOTE | 2019-03-11 09:47 | HC ---
[facility] [place] [address] CONSULTATION Name: ROSELINE ROCHE Room #: 361-P ADM IN M.R.#: [id number] Admission: 03/06/19 Attend Phys: Shane Fletcher MD Discharge: Date of : 64 Report #: [id number] THIS REPORT FOR: //name// CC: Shane Fletcher FAM unknown CRYSTAL BURGOS DATE OF SERVICE: 03/06/2019 HISTORY OF PRESENT ILLNESS: This is a 59-year-old male patient with whom we are familiar with a Charcot deformity to his right foot and a diabetic neuropathic ulcer on the plantar surface. He has had recurring difficulty and underwent a surgical debridement in early December by Dr. Samuel Izaguirre. He was doing relatively well and has been managed with a wound VAC. Within the last several days, however, he has developed increasing swelling and drainage and odor from areas along the lateral aspect of the foot. He was seen at [facility], and was transferred here for further evaluation and treatment. The patient has significant neuropathy and denies pain, but he feels as if he has had fever and chills, and is concerned that he may need an amputation of his foot. PAST MEDICAL HISTORY: Positive for history of Charcot deformity to the right foot, diabetes mellitus type 2 with peripheral neuropathy, chronic ulceration on the plantar aspect of the foot, previous right hip surgery, previous toe amputations on the right foot. MEDICATIONS: Include insulin, furosemide, metoprolol, metformin, glimepiride, Zosyn, vancomycin. ALLERGIES: No known drug allergies. SOCIAL HISTORY: Negative for alcohol or tobacco use. The patient lives in [place], [place]. FAMILY HISTORY: Noncontributory. REVIEW OF SYSTEMS: CONSTITUTIONAL: The patient does complain of fever and chills, and generalized weakness. EYES: The patient denies visual changes, redness or drainage. ENT: The patient denies earache, nasal drainage or sore throat. CARDIOVASCULAR: The patient denies chest pain or palpitations or diaphoresis. PULMONARY: The patient denies cough or shortness of breath. GASTROINTESTINAL: The patient denies nausea, vomiting, diarrhea or abdominal pain. ORTHOPEDIC: The patient notes pain and drainage from his right foot. He has significant peripheral neuropathy. [address] [address] CONSULTATION Name: ROSELINE ROCHE Room #: 361-P [facility] IN M.R.#: [id number] Admission: 03/06/19 Attend Phys: Shane Fletcher MD Discharge: Date of : 64 Report #: [id number] PSYCHIATRIC: The patient denies anxiety, irritability or depression. ENDOCRINE: The patient denies heat or cold intolerance, polydipsia, polyphagia or polyuria. Other systems in a 14-point review of systems are negative. PHYSICAL EXAMINATION: VITAL SIGNS: At this time include pulse rate 144, respiratory rate of 20, blood pressure 151/95, temperature 37.7. GENERAL: This is a somewhat chronically ill-appearing male patient who appears to be in hxox-by-rfynmcce discomfort. HEENT: Head is normocephalic. Nose and throat are clear. NECK: Supple. LUNGS: Clear. HEART: Tachycardic without murmur. ABDOMEN: Soft. Bowel sounds present. EXTREMITIES: Lower extremities demonstrate palpable distal pulses, 2+ edema to both lower extremities, surgically absent multiple toes on the right foot. There is a large ulceration on the plantar aspect of the foot that is relatively clean and granulating; however, on the lateral aspect of the foot, there are 2 areas that appear to be draining abscesses that tunnel deep to bone, are foul smelling and producing purulent drainage. NEUROLOGIC: The patient is alert and moves all 4 extremities spontaneously. He has significant neuropathy and no sensation in his feet. LABORATORY DATA: Includes white blood cell count 19.2 with hemoglobin of 11.9, hematocrit of 36.7, platelet count 189,000. Sodium 131, potassium 3.9, chloride 96, CO2 26, BUN 16, creatinine 1.1, glucose 337, calcium is 8.3, magnesium is 1.8. CLINICAL IMPRESSION: 1. Wilkerson III diabetic foot ulceration of the right foot. 2. New diabetic ulceration abscess and cellulitis of the right foot. 3. Diabetic peripheral neuropathy. 4. Charcot deformity to the right foot. 5. Diabetes with hyperglycemia. 6. Previously normal arterial Doppler. RECOMMENDATIONS: The patient will clearly need surgical incision and drainage. He has had recent surgery by Dr. Izaguirre. Due to the fact that Dr. Izaguirre has recently seen him, we will ask Dr. Izaguirre to see him again, and we will have contacted him tonight. We will pack the open areas with quarter strength Dakin solution at this time. We have obtained cultures at the bedside. He will be on empiric antibiotic therapy, pending cultures. We will check sed rate, CRP and MRI. I have discussed with the patient that this infection is indeed serious and his foot may not be salvageable, necessitating a below-knee amputation. The patient strongly prefers that he not have a below-knee amputation and would like [address] [place] [address] CONSULTATION Name: ROSELINE ROCHE Room #: 361-P ADM IN [place].#: [id number] Admission: 03/06/19 Attend Phys: Shane Fletcher MD Discharge: Date of : 64 Report #: [id number] to do anything possible to salvage his foot prior to considering that surgery. I appreciate being asked to see him in consultation. <ELECTRONICALLY SIGNED> By: Ze Zhao MD 03/11/19 0947 1754 1320 Ze Zhao MD /nt
[2019-03-11 11:41] VITALS: BP 147/79
--- NOTE | 2019-03-11 16:01 | NUR ---
on-going assessment: CM SPOKE WITH PT ABOUT LIKELY NEED FOR SNF PLACEMENT AT DISCHARGE. HE STATES TO PLEASE CALL HIS SHE WILL LIKELY MAKE THAT DECISION. PT HAS BEEN TO [facility] IN THE PAST. PTS REPORTS SHE WASNT UNHAPPY THERE SHE JUST WISHES THEY PAID MORE ATTENTION TO WOUND CARE INSTEAD OF THERAPY. PTS IS STATING SHE IS GOING TO TALK WITH DR. RATLIFF AND THEN SHE WILL GET BACK TO CM TO WHERE SHE WOULD LIKE A REFERRAL SENT. SATHISH NOTIFIED HER THAT IF PATIENT PRGORESSES HE MAY BE READY FOR DISCHARGE EARLY TOMORROW IF SHE WANTS A REFERRAL SENT THE SOONER WE HAVE THE INFO THE BETTER.
[2019-03-11 16:05] VITALS: BP 167/88
[2019-03-11 19:40] VITALS: BP 157/109
--- NOTE | 2019-03-11 20:25 | NUR ---
Assumed care approx. 0700 this AM. No new changes. SR on the monitor. Still edematous in the right lower extremity. Large urine output with hugo colored urine. Wound care completed by physician today-dressings changed; C/D/I at shift change. Wounds healing adequately per report from Shabana (wound care). Patient in chair all shift. Patient slowly progressing toward plan of care.
[2019-03-11 22:49] VITALS: BP 142/83
[2019-03-12 05:01] VITALS: BP 142/73
--- NOTE | 2019-03-12 06:38 | NUR ---
ASSUMED CARE AT 1900. PT DENIES PAIN, NAUSEA, OR SOB. DRESSING TO RIGHT FOOT IS C/D/I, NO SIGNS OF BLEEDING. BP ELEVATED AT HS, RECHECKED AFTER GIVING HS DOSE OF BP MEDS AND BP RETURNED TO A NORMAL RANGE. HS BLOOD SUGAR 177, GAVE 8 UNITS LISPRO PER PROTOCOL. HR HAS BEEN 60-70 OVERNIGHT, VARYING FROM AFIB TO AFLUTTER TO A SR. THIS AM PT REPORTS FEELING OFF, ASKED TO HAVE HIS BLOOD SUGAR CHECKED AT 0430, RESULT WAS 62; PT HAD TWO ORANGE JUICES, TWO CHEPE CRACKER PACKS, AND ONE PEANUT BUTTER. RECHECK OF SUGAR WAS 113, AND PT REPORTED FEELING BETTER. NO OTHER CONCERNS, WILL CONTINUE TO MONITOR.
[2019-03-12 07:35] VITALS: BP 141/97
[2019-03-12 11:45] VITALS: BP 146/84
--- NOTE | 2019-03-12 12:25 | NUR ---
environmental planner printed off papers/referral for [facility], Yaneth is coming to pickup.
--- NOTE | 2019-03-12 12:48 | NUR ---
JOHN reviewed chart and spoke with nursing and attending physician. Pt is progressing towards goals for discharge. SW spoke with pt's via phone to provide update and discuss discharge plan: post-acute placement. Pt's requests to consider alternate facilities. SW discussed possibility of LTAC placement due to pt's complex medical needs. SW provided options for LTAC facilities and locations. Pt's requests info to be sent to [facility] due to location. production control planner to fax referral to [facility]. JOHN notified [facility] liaison of new referral and to request eval today. SW updated pt's nurse and attending physician. SW is following to assist as needed with discharge planning.
--- NOTE | 2019-03-12 13:15 | NUR ---
Pt is calm and cooperative, and has no complaints of pain. Patient still reports no need of BM, though several days have passed with no BM. Stomach sounds still sound regular in 4 quadrants. Frequently uses urinal and has been tolerating sitting in chair. Blood sugar has been under control with insulin, but patient does mention extra hunger.
--- NOTE | 2019-03-12 14:35 | NUR ---
I have reviewed the student's documentation.
[2019-03-12 15:42] VITALS: BP 151/87
--- NOTE | 2019-03-12 16:06 | PATH ---
[facility] [address] [place] [address] PATHOLOGY RPT PROCEDURE Name: ROSELINE ROCHE Room #: 361-P ADM IN M.R.#: [id number] Admission: 03/06/19 Date of : 64 Discharge: Report #: [id number] Path Case #: [id number] [facility] Accession Number: [id number] . 01 Material submitted: . foot - RIGHT FOOT 5TH METATARSAL. Modifiers: right, fifth . 01 Clinical history: . Osteomyelitis right metatarsal/calcaneus . 02 Diagnosis: Bone, right foot fifth metatarsal, incision and drainage: - Bone with marked acute inflammation, compatible with the provided history of acute osteomyelitis. (IUV:leticia; 03/12/2019) QMS 03/12/2019 1347 Local . 02 Electronically signed: . Melony Valladares MD, Pathologist NPI- [id number] . 01 Gross description: . The specimen is received in formalin, labeled "Roseline Roche, right fifth metatarsal". Received is a segment of bone with attached soft tissue measuring 6.6 x 2.8 x 2.3 cm in greatest dimensions. One bone margin is smooth in appearance, consistent with disarticulation, and the opposite margin is blunt in appearance, consistent with transection. The transected margin is inked black. A full-thickness longitudinal cross-section is submitted from transected to disarticulated aspects in cassettes A1 through A3, following decalcification. (CAA; 03/11/2019) QAC/QAC 03/11/2019 1143 Local . 02 Pathologist provided ICD-10: M86.171 . 02 CPT . 994886, [id number] Specimen Comment: A courtesy copy of this report has been sent to Specimen Comment: [phone], . Specimen Comment: Report sent to / DR JACOB Performed at: [address] [id number] MD Mart Webster MD Phone: [phone] Performed at: [address] [place] [address] PATHOLOGY RPT PROCEDURE Name: ROSELINE ROCHE Room #: 361-P ADM IN M.R.#: [id number] Admission: 03/06/19 Date of : 64 Discharge: Report #: [id number] Path Case #: [id number] [address] [facility], [place], [place] [id number] MD Melony Valladares MD Phone: [phone]
--- NOTE | 2019-03-12 16:25 | NUR ---
media planner sent updates to Yaneth at [facility], dp let Yaneth know to expect them.
--- NOTE | 2019-03-12 16:46 | NUR ---
Assumed care approx. 0700 this AM. Patient resting comfortably in chair all shift. Wound care completed per Dr. Zhao and Shabana. Dressing C/D/I. Orders for PICC placement, consent signed. PICC line will be placed tomorrow before discharge. Patient worked with therapy, still not weight bearing on right foot. Patient educated about a-fib condition, and what the blood thinners are for as he was concerned and has questions. Patient provided with a note of [place] to remember what afib is including what blood thinner he is being started on today. Blood sugars treated accordingly. Patient progressing toward goals. Discharge plans for tomorrow.
[2019-03-12 19:52] VITALS: BP 152/89
[2019-03-13 04:15] VITALS: BP 156/96
--- NOTE | 2019-03-13 06:02 | NUR ---
FOLLOWING POC WITH IVPB, PT UP WITH X2 GAIT BELT AND WALKER. PT STATES NO PAIN, N/V, AND VSS. TELE SHOWS AFTB RHYTHM. PT HAS GOOD URINE OUTPUT, AND HAD A BM 10. PT SLEPT IN CHAIR ALL NIGHT. PT IS COURTEOUS AND THANKFUL. HOURLY ROUNDING.
[2019-03-13 11:50] VITALS: BP 132/84
--- NOTE | 2019-03-13 11:53 | NUR ---
dp called 3w to order cc, patient is to dc today to [facility] set up transportation with [facility]. DP will fax dc orders when they are put in
--- NOTE | 2019-03-13 12:56 | HC ---
[facility] [place] [address] [place] [address] CONSULTATION Name: ROSELINE ROCHE Room #: 361-P ADM IN M.R.#: [id number] Admission: 03/06/19 Attend Phys: Shane Fletcher MD Discharge: Date of : 64 Report #: [id number] THIS REPORT FOR: //name// CC: Shane Fletcher FAM unknown CRYSTAL BURGOS DATE OF SERVICE: 03/07/2019 ADMISSION DIAGNOSIS: Abscess with deep tissue infection, right foot. HISTORY OF PRESENT ILLNESS: The patient was admitted yesterday as a direct transfer from [facility] for worsening right diabetic foot infection. He relates new onset of fevers and chills with worsening inflammation and drainage to the right lateral foot wound. He has a chronic right Charcot foot deformity with nonhealing ulceration to the plantar lateral foot with newly developed ulceration along the lateral foot with attendant redness, swelling and drainage. He was previously admitted to [facility] in November for wound care and parenteral antibiotics, and followed by Infectious Disease and Wound Care team. At that time, MRI of the foot was negative for osteomyelitis. He did have a right plantar fasciectomy with debridement and graft placement performed by myself on 12/27/2018. He is currently on parenteral vancomycin and Zosyn. Blood cultures are pending. MRI was ordered, MRI is scheduled to be performed this morning. Foot radiographs were negative for kalie osteomyelitis, although the wound does penetrate within 4 mm of the fifth metatarsal cortex. The patient has new onset AFib, and Cardiology was consulted. He denies pain to the extremity, although he has advanced diabetic peripheral neuropathy. LABORATORY DATA: WBC 19.2, RBC 4.44, hemoglobin 11.9, hematocrit 36.7, platelets 189, BUN 16, creatinine 1.1, glucose 337. Wound culture pending. PHYSICAL EXAMINATION: There is deep tissue infection to the right plantar lateral foot with large chronic ulceration underlying the proximal fifth metatarsal and a newly developed wound to the lateral fifth metatarsal with a brown fibronecrotic tissue and purulence. The lateral and plantar wounds communicate. There is advanced erythema and edema to the lateral foot surrounding the necrotic ulceration over the proximal fifth metatarsal region. The right leg is swollen, no pallor, cyanosis or signs of acute vascular embarrassment. He has an equinovarus Charcot foot deformity with plantarly subluxed cuboid. His foot is insensate with no pain to palpation. There is foul odor and purulence from the right lateral foot ulcer. The plantar foot ulceration has a red granular base and I cannot probe through it, but I can probe from the lateral wound down towards the plantar one. IMPRESSION: [facility] [address] [place] [address] CONSULTATION Name: ROSELINE ROCHE Room #: 361-P ADM IN M.R.#: [id number] Admission: 03/06/19 Attend Phys: Shane Fletcher MD Discharge: Date of : 64 Report #: [id number] 1. Deep tissue infection with likely osteomyelitis, right foot. 2. Type 2 diabetes mellitus with Charcot neuroarthropathy. PLAN: We will keep the patient n.p.o. and await MRI results this morning. He has new onset AFib, so Cardiology was consulted. I discussed with the wound care physicians. The patient may have osteomyelitis of the right fifth metatarsal and perhaps further bony involvement. I will await MRI results. <ELECTRONICALLY SIGNED> By: Volodymyr Izaguirre DPM 03/13/19 1256 0713 0003 oVlodymyr Izaguirre DPM /nt
--- NOTE | 2019-03-13 12:56 | HC ---
[facility] [place] [address] CONSULTATION Name: ROSELINE ROCHE Room #: 361-P ADM IN M.R.#: [id number] Admission: 03/06/19 Attend Phys: Shane Fletcher MD Discharge: Date of : 64 Report #: [id number] THIS REPORT FOR: //name// CC: Shane Fletcher FAM unknown CRYSTAL BURGOS DATE OF SERVICE: 03/10/2019 CHIEF COMPLAINT: Postoperative day #1 for resection of right fifth metatarsal and wound debridement. He denies pain, although he is completely insensate to the foot due to advanced peripheral neuropathy. No new labs for review. He has had stable vitals with no fevers. Appetite is good, denies malaise. He is on parenteral vancomycin and Zosyn. Surgical bone and tissue cultures are pending, preoperative wound culture is growing gram-positive cocci and gram-negative rods. He has remained nonweightbearing. PHYSICAL EXAMINATION: The incision of the right distal lateral foot is well coapted with no erythema or signs of vascular embarrassment. The proximal open wound along the lateral calcaneal wall has no active bleeding with some fibronecrotic tissue and coagulated hematoma. The plantar wound that was overlying the base of the fifth metatarsal has been surgically excised and communicates with the wound interior. No fluctuance or crepitation to the extremity, decreased inflammation with significant clinical improvement. IMPRESSION: Osteomyelitis, right foot; Charcot arthropathy; type 2 diabetes mellitus; obesity; venous hypertension; deep tissue infection. PLAN: The plantar wound was debrided with a curette to remove some subcutaneous tissue and slough, it was cleansed and bleeding was stopped with pressure. The hematoma to the lateral wound was left intact so as not to start bleeding. The foot was redressed with Xeroform over the lateral wound covered with 4 x 4s, ABDs, Kerlix and Pete wrap. The patient is to remain strictly nonweightbearing to the right foot and physical therapy ordered for nonweightbearing. He is encouraged to sit in a chair with the leg elevated today. I ordered radiographs of the right foot. <ELECTRONICALLY SIGNED> By: Volodymyr Izaguirre DPM 03/13/19 1256 0943 1036 Volodymyr Izaguirre DPM /nt
--- NOTE | 2019-03-13 12:56 | O ---
[facility] [place] [address] OPERATIVE REPORT Name: ROSELINE ROCHE Room #: 361-P ADM IN M.R.#: [id number] Admission: 03/06/19 Attend Phys: Shane Fletcher MD Discharge: Date of : 64 Report #: [id number] THIS REPORT FOR: //name// CC: Shane Fletcher FAM unknown CRYSTAL BURGOS DATE OF SERVICE: 03/09/2019 SURGEON: Volodymyr Izaguirre DPM PREOPERATIVE DIAGNOSES: Osteomyelitis, right fifth metatarsal and calcaneus with deep tissue infection. POSTOPERATIVE DIAGNOSES: Osteomyelitis, right fifth metatarsal and calcaneus with deep tissue infection. PROCEDURES: 1. Resection, right fifth metatarsal. 2. Debridement, right calcaneus. 3. Plantar fasciectomy with soft tissue debridement. 4. Incision and drainage, right foot. ANESTHESIA: MAC. INJECTABLES: 20 mL of 0.5% Marcaine plain. ESTIMATED BLOOD LOSS: Roughly 20 mL. SUTURES: 2-0 nylon. SPECIMENS: Right fifth metatarsal. CULTURES: 1. Bone, right fifth metatarsal, aerobic and anaerobic. 2. Soft tissue, right foot, aerobic and anaerobic. COMPLICATIONS: None. DESCRIPTION OF PROCEDURE: The patient was brought to the OR and placed on the table supine with induction of MAC anesthesia. A well-padded right calf tourniquet was placed and a local anesthetic block was given to the right lateral ankle. The extremity was prepped and draped aseptically with exsanguination and inflation of tourniquet. A #10 surgical blade was used to create a lateral incision along the right fifth metatarsal region. Layered anatomic dissection utilized down to the bone with electrocautery for [facility] [address] [place] [address] OPERATIVE REPORT Name: ROSELINE ROCHE Room #: 361-P ADM IN M.R.#: [id number] Admission: 03/06/19 Attend Phys: Shane Fletcher MD Discharge: Date of : 64 Report #: [id number] hemostasis. The fifth metatarsal was mobilized in the soft tissue envelope and detached from the cuboid and peroneus brevis tendon. A portion of the distal bone was sent for culture and the remaining bone for pathology. I could not determine if there was kalie osteomyelitis of the metatarsal; however, there was some irregularity at the distal capone to the bone at the prior surgical resection site. The wound along the base of the fifth metatarsal extending over the cuboid and lateral calcaneal wall had extensive necrosis. There was a large ulceration over the lateral calcaneus, extending distally along the hindfoot with brown and black necrotic tissue. I excised all this tissue with a #10 blade down to the calcaneal wall. The tissue was sent for soft tissue culture. I excised the peroneal tendons and I performed a plantar fasciectomy through the wound of the lateral plantar aponeurosis. Extensive soft tissue debridement of adipose and necrotic tissue was performed. I debrided the calcaneal wall with a curette. The wound was flushed and dried. The distal incision over the fifth metatarsal was repaired with 2-0 nylon. The proximal surgical wound was not closeable, as there was a large soft tissue defect from the prior soft tissue necrosis, necessitating tissue removal. I packed the proximal open wound with saline-moistened Kerlix and covered with 4 x 4s, ABDs, Kerlix, and Pete wrap. The tourniquet was deflated and the patient left the OR. I would note, the existing plantar ulceration on the plantar fifth metatarsal was excised, and it did communicate with the intraoperative wound. <ELECTRONICALLY SIGNED> By: Volodymyr Izaguirre DPM 03/13/19 1256 1342 1459 Volodymyr Izaguirre DPM /nt
[2019-03-13] MEDS ORDERED: LOPRESSOR100 M1 PO (12:57)
[2019-03-13] MEDS ORDERED: ELIQUIS5 MG PO (12:57)
[2019-03-13] MEDS ORDERED: LISINOPRIL5 MG PO (12:58)
[2019-03-13] MEDS ORDERED: UNASYN 3 GM VIAL3 G1 IV (12:59)
--- NOTE | 2019-03-13 14:26 | NUR ---
DISCHARGE NOTE: SW reviewed chart and spoke with nursing and attending pysician. Pt is medically stable for discharge to [facility] today. Discharge orders/summary completed and faxed to [facility] by marketing planner. W/c van transportation scheduled for 1700 per [facility]'s arrangements. SW met with pt at bedside to discuss discharge plan. Pt is aware and agreeable with discharge plan. service planner notified pt's of discharge. Chart copy requested. Nursing to call report. No additional SW needs identified at this time, but is available to assist should needs arise.
[2019-03-13 14:57] VITALS: BP 140/78
--- NOTE | 2019-03-13 15:11 | NUR ---
ASSUMED CARE OF PT AT 0700. PT ALERT AND ORIENTED X4 IN NO ACUTE DISTRESS. VOICING NO CONCERNS. DRESSING CHANGED PER ORDER. WAITING ON PICC LINE PLACEMENT, THEN D/C TO [facility] AT 1700. PT PROGRESSED TOWARD POC GOALS.
--- NOTE | 2019-03-13 18:09 | NUR ---
PICC LINE PLACED. TRANSPORT SCHEDULED FOR 1829.
--- NOTE | 2019-03-13 20:30 | NUR ---
Patient discharged per wheelchair transport. Saline lock discontinued. Left double lumen PICC inplace for IV abx at [facility].
== END 2019-03-13 20:00 | DRG 854 ==
LOC: 3W 16:20 → 4W 16:20 → 3W 17:30
PROVIDERS: Hospitalist; Nurse Practitioner; ADMIT Hospitalist
DX: A40.9 Streptococcal sepsis, unspecified (principal); L02.611 Cutaneous abscess of right foot; L03.115 Cellulitis of right lower limb; Z68.43 Body mass index [BMI] 50.0-59.9, adult; M86.8X7 Other osteomyelitis, ankle and foot; I42.9 Cardiomyopathy, unspecified; E11.42 Type 2 diabetes mellitus with diabetic polyneuropathy; I10 Essential (primary) hypertension; E11.65 Type 2 diabetes mellitus with hyperglycemia; E11.621 Type 2 diabetes mellitus with foot ulcer; E11.610 Type 2 diabetes mellitus with diabetic neuropathic arthropathy; E11.51 Type 2 diabetes mellitus with diabetic peripheral angiopathy without gangrene; E66.9 Obesity, unspecified; L97.519 Non-pressure chronic ulcer of other part of right foot with unspecified severity; E11.69 Type 2 diabetes mellitus with other specified complication; I48.91 Unspecified atrial fibrillation; I36.1 Nonrheumatic tricuspid (valve) insufficiency; Z89.431 Acquired absence of right foot; Z90.89 Acquired absence of other organs; Z83.3 Family history of diabetes mellitus; Z82.49 Family history of ischemic heart disease and other diseases of the circulatory system
CPT/HCPCS: 10879; 27000; 50010; 50101; 50386; 56525; 57091; 62110; 62900; 70005

== ENCOUNTER → 2019-04-24 | Outpatient (CLI) | payer OTHER ==
[~2019-04-24] VITALS: Ht 180.3 cm; Wt 167.8 kg
[~2019-04-24] MED LIST changes: +ELIQUIS5 MG PO; +FLORANEX TABLE1 EACH PO; +JUVEN PACKET1 EAC1 PO; +LEVEMIR100 UNIT/1 SUBQ; +LISINOPRIL5 MG PO; +LOPRESSOR100 M1 PO; +SUPER THERAVIT1 EACH PO; +UNASYN 3 GM VIAL3 G1 IV; +ZOSYN 4.54.5 GM/101 IV
[2019-04-24 07:51] VITALS: BP 135/68
[2019-04-24 09:56] VITALS: BP 132/74
[2019-04-24 09:57] VITALS: BP 132/74
[2019-04-24 10:10] VITALS: BP 119/65
[2019-04-24 10:26] VITALS: BP 119/65
== END | disposition home or self-care (01) ==
LOC: CATH 07:05
DX: I70.212 Atherosclerosis of native arteries of extremities with intermittent claudication, left leg (principal); I70.1 Atherosclerosis of renal artery; M86.8X7 Other osteomyelitis, ankle and foot; I10 Essential (primary) hypertension; E11.40 Type 2 diabetes mellitus with diabetic neuropathy, unspecified; G62.9 Polyneuropathy, unspecified; E66.09 Other obesity due to excess calories; Z98.890 Other specified postprocedural states; Z79.4 Long term (current) use of insulin; Z79.01 Long term (current) use of anticoagulants; Z79.899 Other long term (current) drug therapy; Z88.8 Allergy status to other drugs, medicaments and biological substances

== ENCOUNTER → 2019-05-13 | Outpatient (CLI) | payer OTHER | LOC: HYPER 13:56 | DX: T81.31XA Disruption of external operation (surgical) wound, not elsewhere classified, initial encounter (principal); E11.621 Type 2 diabetes mellitus with foot ulcer; L97.512 Non-pressure chronic ulcer of other part of right foot with fat layer exposed; L97.422 Non-pressure chronic ulcer of left heel and midfoot with fat layer exposed; L84 Corns and callosities; E11.51 Type 2 diabetes mellitus with diabetic peripheral angiopathy without gangrene; E11.610 Type 2 diabetes mellitus with diabetic neuropathic arthropathy; I10 Essential (primary) hypertension; M19.90 Unspecified osteoarthritis, unspecified site; Z79.4 Long term (current) use of insulin; Z79.84 Long term (current) use of oral hypoglycemic drugs; Z79.01 Long term (current) use of anticoagulants; Z89.411 Acquired absence of right great toe; Z89.421 Acquired absence of other right toe(s); Y92.89 Other specified places as the place of occurrence of the external cause; Y83.8 Other surgical procedures as the cause of abnormal reaction of the patient, or of later complication, without mention of misadventure at the time of the procedure ==

== ENCOUNTER → 2019-05-28 | Outpatient (CLI) | payer OTHER | LOC: HYPER 09:59 | DX: T81.31XD Disruption of external operation (surgical) wound, not elsewhere classified, subsequent encounter (principal); E11.621 Type 2 diabetes mellitus with foot ulcer; L97.512 Non-pressure chronic ulcer of other part of right foot with fat layer exposed; L84 Corns and callosities; E11.610 Type 2 diabetes mellitus with diabetic neuropathic arthropathy; E11.51 Type 2 diabetes mellitus with diabetic peripheral angiopathy without gangrene; I10 Essential (primary) hypertension; M19.90 Unspecified osteoarthritis, unspecified site; Z89.421 Acquired absence of other right toe(s); Z89.411 Acquired absence of right great toe; Z79.4 Long term (current) use of insulin; Z79.84 Long term (current) use of oral hypoglycemic drugs; Z79.01 Long term (current) use of anticoagulants; Y83.8 Other surgical procedures as the cause of abnormal reaction of the patient, or of later complication, without mention of misadventure at the time of the procedure ==

== ENCOUNTER → 2019-06-17 | Outpatient (CLI) | payer OTHER | LOC: HYPER 09:49 | DX: T81.31XD Disruption of external operation (surgical) wound, not elsewhere classified, subsequent encounter (principal); L97.512 Non-pressure chronic ulcer of other part of right foot with fat layer exposed; E11.621 Type 2 diabetes mellitus with foot ulcer; E11.51 Type 2 diabetes mellitus with diabetic peripheral angiopathy without gangrene; E11.610 Type 2 diabetes mellitus with diabetic neuropathic arthropathy; L84 Corns and callosities; I10 Essential (primary) hypertension; M19.90 Unspecified osteoarthritis, unspecified site; Z79.4 Long term (current) use of insulin; Z79.01 Long term (current) use of anticoagulants; Z89.411 Acquired absence of right great toe; Y83.8 Other surgical procedures as the cause of abnormal reaction of the patient, or of later complication, without mention of misadventure at the time of the procedure ==

== ENCOUNTER 2019-06-27 17:29 | Inpatient (IN) | payer OTHER ==
[~2019-06-27] VITALS: Ht 180.3 cm; Wt 157.0 kg
--- NOTE | ~2019-06-27 | HC ---
[facility] [place] [address] CONSULTATION Name: ROSELINE ROCHE Room #: 448-P [facility] IN M.R.#: [id number] Admission: 06/27/19 Attend Phys: Rosette Cantu Discharge: Date of : 64 Report #: [id number] THIS REPORT FOR: cc: CRYSTAL BURGOS Physician not on staff Laureano Alvarez MD ~ THIS REPORT FOR: //name// CC: Rosette BURGOS Physician staff DATE OF SERVICE: 07/01/2019 HISTORY OF PRESENT ILLNESS: This is a 59-year-old white male with nonhealing diabetic right foot ulcer with extensive osteomyelitis, who is now status post right below-knee amputation on 06/29/2019. He has also been treated for cellulitis. The patient had a significant decline in his functional abilities and we are seeing him in rehabilitation medicine consultation. He has a history of insulin-dependent diabetes mellitus, morbid obesity, and premorbid peripheral neuropathy with history of Charcot foot. He was noted to have a left shoulder metal plate and hypertension. ALLERGIES: No known drug allergies. MEDICATIONS: Please see the full medication listing. SOCIAL HISTORY: He lives in a house with his and son. He lives near [place], [place] on a [place]. There is a ramp into the house. His works as a middle school special education teacher. His son works for a [employer] nearby. The patient is noted to have a lift chair and a bariatric walker. He was able to get around, doing limited walking prior to his admission. REVIEW OF SYSTEMS: No current complaints of chest pain, shortness of breath or abdominal discomfort. PHYSICAL EXAMINATION: GENERAL: A 59-year-old pleasant, obese white male, in no obvious distress. He is alert, oriented, and appropriate. VITAL SIGNS: Last recorded temperature is 99.9, pulse 95, respirations 18, blood pressure 127/87. Last recorded weight is 346 pounds on 06/30/2019, which is after the amputation. He is a good historian. HEENT: Facies appeared to be symmetric. EXTREMITIES: He has functional range of motion of the upper extremity. Strength is at least a grade 4+/5. DTRs are trace to 1. In his lower extremities, left lower extremity, he has definite decreased sensation distally [address] [address] CONSULTATION Name: ROSELINE ROCHE Room #: 448-[facility] IN M.R.#: [id number] Admission: 06/27/19 Attend Phys: Rosette Cantu Discharge: Date of : 64 Report #: [id number] with limited to no proprioception of the left large toe. He does have better proprioception of the left ankle. There is no focal calf swelling. Strength of the left lower extremity is probably a grade 4-/5. Right lower extremity reveals the right below knee amputation, which is dressed. Proximal strength is probably a grade 4- to 3+/5. Functionally, he is mod assist with sit to stand, pivot steps were mod assist. ASSESSMENT: A 59-year-old white male with the following problem list: 1. Right knee amputation on 06/29/2019. 2. Nonhealing diabetic right foot ulcer with extensive osteomyelitis. 3. History of cellulitis. 4. Insulin-dependent diabetes mellitus. 5. Significant peripheral neuropathy. 6. Morbid obesity. 7. Hypertension. 8. History of Charcot foot. PLAN: We will need to check on acute care days. He has been at [facility] in the recent past. We will add occupational therapy. We will be glad to assess regarding his rehab therapy needs and see if he would qualify for an acute [address] [place] [address] inpatient rehabilitation stay. We will be glad to follow along with you. By: [id number] Laureano Alvarez MD /nt
--- NOTE | ~2019-06-27 | HC ---
[facility] [place] [address] CONSULTATION Name: ROSELINE ROCHE Room #: 448-P ADM IN M.R.#: [id number] Admission: 06/27/19 Attend Phys: Rosette Cantu Discharge: Date of : 64 Report #: [id number] THIS REPORT FOR: cc: CRYSTAL BURGOS Physician not on staff Volodymyr Izaguirre DPM ~ THIS REPORT FOR: //name// CC: Rosette BURGOS Physician staff DATE OF SERVICE: 06/28/2019 ADMISSION DIAGNOSIS: Osteomyelitis, right foot with nonhealing diabetic mal perforans ulceration. HISTORY OF PRESENT ILLNESS: The patient is a 59-year-old male well known to me from prior hospitalization and surgery. He has a longstanding wound to the right plantar lateral hindfoot with likely overlying osteomyelitis to the tarsometatarsal articulation of cuboid. I last performed surgical debridement in early February 2019 to include resection of the fifth metatarsal and debridement of the cuboid. The fifth metatarsal had marked inflammation compatible with osteomyelitis on surgical pathology. He was undergoing outpatient wound care at [facility], and the patient admits to walking on the foot against medical advice. He states the plantar foot wound has been present for roughly 3 years. He states he has been hospitalized over 6 times for related foot infection. Roughly 2 weeks ago, he discontinued p.o. antibiotics, he cannot name which one. Subsequently, the foot became increasingly red, hot and swollen. He denies fevers, chills, malaise, shortness of breath, chest pain. He has advanced diabetic peripheral neuropathy. He did restart some oral doxycycline roughly 5 days prior to admission, with no clinical improvement. The patient rated his pain at 8/10 with some improvement since hospitalization. Admission foot radiographs reveal extensive destruction through the right tarsometatarsal articulation and cuboid bone more compatible with osteomyelitis than neuropathic arthropathy or Charcot joint disease. He is scheduled for foot MRI tomorrow. He is currently on parenteral vancomycin and Zosyn with good tolerance. LABORATORY DATA: WBC 7.7, RBC 4.39, hemoglobin 11.0, hematocrit 34.5, platelets 291, BUN 18, creatinine 1.0, glucose 162. Albumin 2.6. CRP 130. PHYSICAL EXAMINATION: Large diabetic mal perforans ulceration to the right plantar lateral hindfoot measuring roughly 5 cm diameter. The wound bed has a red granular base with underlying fluctuance, no crepitation. There is erythema surrounding the plantar wound extending near dorsal lateral foot. The right leg [address] [address] CONSULTATION Name: ROSELINE ROCHE Room #: 448-P [facility] IN ..#: [id number] Admission: 06/27/19 Attend Phys: Rosette Cantu Discharge: Date of : 64 Report #: [id number] is swollen compared to left. He has palpable right dorsalis pedis and posterior tibial pulses. There is no pallor or cyanosis to the legs. Review of foot radiographs show extensive osteolysis to the right tarsometatarsal articulation as well as the cuboid. The plantar ulceration communicates to the plantar lateral cuboid. There is no subcutaneous emphysema. He has an equinovarus Charcot foot deformity. He is missing the distal second metatarsal and fifth metatarsal. IMPRESSION: Chronic neuropathic ulceration, right plantar foot with chronic osteomyelitis. PLAN: Based on clinical findings with the patient's history, I feel a qostz-cuo-veso amputation is in his best interest. I do not feel the foot is salvageable at this point. I had an in-depth discussion with the patient about osteomyelitis to include surgical debridement of the foot versus a primary below-knee amputation. The patient appears comfortable with pursing with a below-knee amputation. I will discuss this further with Dr. Crenshaw. By: [id number] Volodymyr Izaguirre DPM /nt
[2019-06-27 17:31] VITALS: BP 157/95
[2019-06-27] MEDS ORDERED: DOXYCYCLINE HY100 M3 PO (17:47)
[2019-06-27] MEDS ORDERED: LANTUS SUBQ (17:53)
[2019-06-27] MEDS ORDERED: HUMALOG100 UNIT/1 SUBQ (17:54)
[2019-06-27 18:33] LABS: ABSOLUTE NEUTROPHILS 6.4 thou/uL (1.4-8.2); BASOPHILS 0.7 % (0.0-2.0); EOSINOPHILS 2.4 % (0.0-3.0); HEMATOCRIT 35.7 % (42.0-52.0); HEMOGLOBIN 11.4 gm/dL (14.0-18.0); LYMPHOCYTES 15.4 % (24.0-44.0); MCH 24.6 pg (26.0-34.0); MCV 77.1 fL (80.0-100.0); MONOCYTES 8.3 % (1.0-8.0); PLATELET COUNT 292 thou/uL (150-400); POLYS 73.2 % (36.0-66.0); RBC 4.63 mil/uL (4.50-6.00); RDW 17.7 % (10.5-14.5); WBC 8.7 thou/uL (4.0-11.0)
[2019-06-27 18:43] LABS: CALCIUM 8.8 mg/dL (8.5-10.1); POTASSIUM 4.3 mmol/L (3.5-5.1)
[2019-06-27 18:49] LABS: ALBUMIN 2.6 g/dL (3.4-5.0); TOTAL BILIRUBIN 1.1 mg/dL (<0.1-1.0); TOTAL PROTEIN 8.3 g/dL (6.4-8.2)
[2019-06-27 19:47] VITALS: BP 145/91
[2019-06-27 20:35] VITALS: BP 141/90
[2019-06-27 21:00] VITALS: BP 135/64
[2019-06-28] VITALS: BP 127/73
[2019-06-28 04:30] VITALS: BP 108/67
[2019-06-28 07:31] VITALS: BP 117/68
[2019-06-28 08:46] LABS: HEMATOCRIT 34.5 % (42.0-52.0); MCHC 31.8 g/dL (28.0-37.0); MCV 78.6 fL (80.0-100.0); RBC 4.39 mil/uL (4.50-6.00); RDW 17.8 % (10.5-14.5); WBC 7.7 thou/uL (4.0-11.0)
[2019-06-28 08:53] LABS: CALCIUM 8.9 mg/dL (8.5-10.1)
--- NOTE | 2019-06-28 10:57 | NUR ---
Received awake on bed. Due medications given as prescribed, able to swallow meds w/o difficulty. On room air. Vital signs stable. On blood sugar monitoring- taken and recorded accordingly; with sliding scale insulin and lantus- given as prescribed. On carb controlled diet- tolerating well; no nausea, no vomiting and no abdominal pain noted. With NS at 80cc/hr, infusing well at R AC. With wound at R foot- dressing C/D/I. As per night shift supervisor nurse- to clarify re: dosage and frequency of pt's apixaban- held for today, possible surgery. Assisted in ADLs. Falls bundle in place. On heart monitoring- no complaints of chest pain, crushing sensation or heaviness. With consult to ortho- US called in consult for Dr Yeh, as per answering service, Dr Yeh does not do foot surgery- will transfer service to Dr Griggs. To continue monitoring patient.
--- NOTE | 2019-06-28 14:13 | NUR ---
Met with patient who admits from home with right foot ulcer osteo. Patient with hx of toe amputatuion and peripheral neuropathy. )ct 16 2019 patient dc to [facility]. He reports decent stay at [facility] from there he dc to skilled rehab but cannot recall which skilled. He then dc home with no HH care. He lives in [facility] with and son in home. All needs on one level. Patient uses no Dme but also does not drive. 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 PCP Dr Crenshaw. He follows [facility] wound care on outpatient basis. He reports plan home once stable.
[2019-06-28 15:34] VITALS: BP 125/68
[2019-06-28 20:00] VITALS: BP 126/79
--- NOTE | 2019-06-28 20:43 | NUR ---
PT JUST TRANSFERRED FROM [facility]. PT IS IN ROOM 448. HE IS ALERT AND ORIENTED.DENIES PAIN. DRSG TO R FOOT.PT DENIES ANY PAIN. FALL PREC IN PLACE. IV FLUIDS INFUSING. WILL BE NPO AFTER MIDNOC. NO FURTHER CONCERNS.
[2019-06-29 03:40] VITALS: BP 129/73
[2019-06-29 08:27] VITALS: BP 127/93
[2019-06-29 17:15] VITALS: BP 148/91
[2019-06-29 17:16] VITALS: BP 116/79
[2019-06-29 17:49] VITALS: BP 135/86
[2019-06-29 20:25] VITALS: BP 132/73
--- NOTE | 2019-06-29 20:30 | NUR ---
PT CARE ASSUMED AT 0700. A&Ox4. PT WENT TO SURGERY FOR A TKA. HE DID WELL AND HAS NOT REQUIRED ANY PAIN MEDICATION. HE TOLERATED HIS CLEAR LIQUIDS WELL AND WAS ADVANCED TO A CARB CONTROL DIET. HE IS ACHS WITH NO COVERAGE NEEDED. HEMOVAC IN PLACE WITH 25CC OUTPUT. IV IS PATENT WITH NO REDNESS OR EDEMA. BED IS IN LOW POSITION, LOCKED, WITH BED ALARM IN PLACE. CALL LIGHT IN REACH. AND DAUGHTER AT BED SITE. VITALS HAVE BEEN STABLE
[2019-06-30 04:25] VITALS: BP 123/82
[2019-06-30 05:34] LABS: HEMATOCRIT 31.2 % (42.0-52.0); HEMOGLOBIN 9.8 gm/dL (14.0-18.0); MCH 24.6 pg (26.0-34.0); MCHC 31.3 g/dL (28.0-37.0); MCV 78.6 fL (80.0-100.0); RBC 3.97 mil/uL (4.50-6.00); RDW 17.7 % (10.5-14.5); WBC 7.4 thou/uL (4.0-11.0)
[2019-06-30 05:48] LABS: CALCIUM 8.2 mg/dL (8.5-10.1); CREATININE 1.1 mg/dL (0.7-1.3); POTASSIUM 4.5 mmol/L (3.5-5.1)
--- NOTE | 2019-06-30 06:05 | NUR ---
ASSESSMENT COMPLETED. PT IS PLEASANT AND COOPERATIVE. S/P R BKA. POST OP DRSG IN PLACE, CLEAN AND DRY.PAIN IN CONTROL WITH ORAL PAIN MEDS, NOT MUCH PAIN THOUGH. ORAL INTAKE WITH NO NAUSEA OR VOMITING. VOIDING WELL PER URINAL. AFEBRILE. HARDLY ANY OUTPUT FROM THE HEMOVAC.IV FLUIDS AND ABTS INFUSED. PROGRESSING TOWARDS GOALS.
[2019-06-30 08:16] VITALS: BP 116/68
[2019-06-30 17:19] VITALS: BP 119/78
[2019-06-30 19:08] VITALS: BP 108/55
[2019-06-30 19:27] VITALS: BP 137/54
--- NOTE | 2019-06-30 20:01 | NUR ---
PT CARE ASSUMED AT 0700. A&Ox4. PT IS POST OP DAY 1 OF A BKA. HEMOVAC WAS UNPLUGGED THIS MORNING. SUCTION CONNECTED AND NO MORE OUTPUT WAS NOTED. HEMOVAC REMOVED WITH ONLY 25CC DRAINAGE. PAIN IS VERY WELL TOLERATED WITH MINIMAL PAIN MEDICATION NEEDED. ACHS WITH COVERAGE NEEDED TODAY. IV IS PATENT WITH NO REDNESS OR EDEMA. FLUIDS INFUSING. NO DRAINAGE ON WOUND SITE. PT WAS ABLE TO TRANSFER TO THE WHEELCHAIR WITH PT TODAY AND STAYED UP IN THE CHAIR FOR 3 HOURS WHICH HE TOLERATED WELL. PT IS IN GOOD MENTAL SPIRITS. THE WHEEL CHAIR IN PT ROOM BELONGS TO REHAB AND NEEDS TO STAY WITH THE PT AND IS TO GO WITH THE PT TO THE REHAB FLOOR WHEN HE TRANSFERS UP TO 5N. BED IS IN LOW POSITION, LOCKED, AND ALARM SET. CALL LIGHT IN REACH.
[2019-07-01 04:39] VITALS: BP 116/62
[2019-07-01 05:23] LABS: HEMATOCRIT 28.9 % (42.0-52.0); HEMOGLOBIN 9.2 gm/dL (14.0-18.0); MCH 24.9 pg (26.0-34.0); MCHC 31.8 g/dL (28.0-37.0); MCV 78.5 fL (80.0-100.0); RBC 3.69 mil/uL (4.50-6.00); RDW 17.5 % (10.5-14.5); WBC 6.7 thou/uL (4.0-11.0)
[2019-07-01 05:37] LABS: CALCIUM 8.3 mg/dL (8.5-10.1)
--- NOTE | 2019-07-01 05:39 | NUR ---
ASSESSED AT START OF SHIFT. PT A&OX4. PAIN MED GIVENX1 THIS SHIFT. NIGHT TIME BP MED NOT GIVEN DUE TO LOW RAUL BP. DRESSING INTACT IN RT STUMP AND NO DRAINAGE. URINAL AT BEDSIDE. IV INTACT ABX AND FLUIDS INFUISING. FALL PREC IN PLACE AND WILL CONT WITH POC TILL EOS
--- NOTE | 2019-07-01 07:39 | HC ---
[place] [address] CONSULTATION Name: ROSELINE ROCHE Room #: 448-P ADM IN M.R.#: [id number] Admission: 06/27/19 Attend Phys: Rosette Cantu Discharge: Date of : 64 Report #: [id number] THIS REPORT FOR: cc: CRYSTAL BURGOS Physician not on staff Ze Zhao MD ~ THIS REPORT FOR: //name// CC: Rosette BURGOS Physician staff DATE OF SERVICE: 06/28/2019 CHIEF COMPLAINT: Diabetic foot infection. HISTORY OF PRESENT ILLNESS: This is a 59-year-old male patient with a known longstanding ulceration of the plantar aspect of his right foot with some previous history of osteomyelitis. He has had previous surgical intervention with Dr. Izaguirre. He has ongoing Charcot arthropathy. He has had a right toe amputation in the past as well. He denies any fever or chills at present, but notes increased pain and drainage and odor. The patient otherwise states he feels reasonably well without fever or chills presently. PAST MEDICAL HISTORY: Positive for history of type 2 diabetes mellitus, amputation of toes on the right foot x4, peripheral neuropathy, Charcot arthropathy, peripheral vascular disease, morbid obesity and peripheral neuropathy. FAMILY HISTORY: Positive for diabetes and heart disease. SOCIAL HISTORY: Negative for alcohol or tobacco use. MEDICATIONS: Include doxycycline, Klor-Con, Lasix, Lantus insulin, metformin, and glimepiride. REVIEW OF SYSTEMS: CONSTITUTIONAL: The patient denies fever, chills or weight loss. NEUROLOGICAL: The patient denies focal weakness, numbness or tingling, but does have peripheral neuropathy. EYES: The patient denies visual changes, redness, or drainage. ENT: The patient denies earache, nasal drainage, sore throat. CARDIOVASCULAR: The patient denies chest pain, palpitations or diaphoresis. PULMONARY: The patient denies cough or shortness of breath. GASTROINTESTINAL: The patient denies nausea, vomiting, diarrhea or abdominal pain. [address] [address] CONSULTATION Name: ROSELINE ROCHE Room #: 448-P [facility] IN M.R.#: [id number] Admission: 06/27/19 Attend Phys: Rosette Cantu Discharge: Date of : 64 Report #: [id number] ORTHOPEDIC: The patient notes mild pain, drainage and odor from his right foot. Other systems in a 14-point review of systems are negative. PHYSICAL EXAMINATION: VITAL SIGNS: Include temperature 37.4, pulse 87, respiratory rate 20, and blood pressure . GENERAL: This is a somewhat chronically ill-appearing male patient who appears to be in minimal distress. HEENT: Head is normocephalic. Nose and throat are clear. NECK: Supple. LUNGS: Clear. HEART: Irregular. ABDOMEN: Soft. Bowel sounds present. EXTREMITIES: Examination of the lower extremities demonstrates palpable distal pulses. He has a circular ulceration on the plantar lateral aspect of the right foot. There is some odor and some drainage. I am not able to palpate any bony structures upon my inspection. NEUROLOGIC: He is alert, oriented and appropriate. LABORATORY DATA: Includes sodium 136, potassium 4.0, chloride 99, CO2 32, BUN 18, creatinine is 1.0. White blood cell count 7.7 with a hemoglobin of 11.0. IMAGING: X-ray of the right foot demonstrates an extensive destructive osteomyelitis with lucency and cortical destruction of the mid foot centered at the second, third and fourth tarsometatarsal joints with involvement of the metatarsal bases, middle lateral cuneiforms as well as the cuboid. This may represent osteomyelitis versus possible progression of Charcot arthropathy. CLINICAL IMPRESSION: 1. Diabetic foot ulcer to the right foot. 2. Osteomyelitis versus Charcot arthropathy to the right mid foot. 3. Diabetic peripheral neuropathy. 4. Obesity. 5. History of atrial fibrillation. RECOMMENDATIONS: The patient has been seen by Podiatry and a below-knee amputation was suggested. Dr. Crenshaw who has followed the patient carefully has also discussed this case with Dr. Griggs, and we will have ortho see him and Dr. Griggs will likely be able to see him within the next couple of days due to entertain any possible limb salvage options versus a below-knee amputation. Simple dressings for now, offloading IV antibiotics, nutrition. I appreciate being asked to see the patient again in consultation. <ELECTRONICALLY SIGNED> By: Ze Zhao MD 07/01/19 [id number] Ze Zhao MD /nt
[2019-07-01 08:10] VITALS: BP 127/87
--- NOTE | 2019-07-01 09:45 | NUR ---
Assess due to pt with right foot osteomyelitis and is s/p right BKA on 06/29. Hx diabetes, requires ss insulin and glargine. BG 156-282. Class III obesity, BMI 48, and new baseline wt is 346 lb since surgery. Appetite is excellent, eating 100% of high protein foods. No need for oral supplement. On regular diet, okay with carb control, so will change diet order. Low nutrition risk.
[2019-07-01] MEDS ORDERED: SENNA8.6 MG PO (14:34)
[2019-07-01] MEDS ORDERED: ANCEF 1GM1 GM/50 M2 IVPB (14:34)
[2019-07-01] MEDS ORDERED: PERCOCET 10-321 EAC1 PO (14:34)
[2019-07-01] MEDS ORDERED: COLACE 100 MG100 MG PO (14:34)
[2019-07-01] MEDS ORDERED: NEURONTIN 300300 M1 PO (14:34)
[2019-07-01] MEDS ORDERED: ACETAMINOPHEN325 M1 PO (14:34)
--- NOTE | 2019-07-01 16:07 | O ---
[facility] [place] [address] OPERATIVE REPORT Name: ROSELINE ROCHE Room #: 448-P ADM IN M.R.#: [id number] Admission: 06/27/19 Attend Phys: Rosette Cantu Discharge: Date of : 64 Report #: [id number] THIS REPORT FOR: cc: CRYSTAL BURGOS Physician not on staff Johnie Cristobal MD ~ THIS REPORT FOR: //name// CC: Rosette BURGOS Physician staff DATE OF SERVICE: 06/29/2019 PREOPERATIVE DIAGNOSIS: Right foot diabetic osteomyelitis. POSTOPERATIVE DIAGNOSIS: Right foot diabetic osteomyelitis. PROCEDURE: Right below-knee amputation. SURGEON: Johnie Cristobal MD. BENCH MOLDER: Vernell Santana PA-C. INDICATIONS FOR BENCH MOLDER: Throughout the case, extensive retraction and manipulation of the leg was required. This was afforded to me by my clinic office assistant. ANESTHESIA: General. TOURNIQUET TIME: 40 minutes. ESTIMATED BLOOD LOSS: 200 mL. COMPLICATIONS: None. SPECIMENS: The right foot and ankle were sent for permanent pathology. CONDITION UPON LEAVING THE OPERATING ROOM: Stable. INDICATIONS FOR PROCEDURE: The patient is a 59-year-old gentleman with diabetes. He has had several amputations of multiple toes and raise on the right foot. He has developed mid foot osteomyelitis with a draining ulcer on the plantar surface of his foot, x-rays were consistent with destructive osteomyelitis of the mid foot and after discussion with he and his family, they elected for a below-knee amputation. [facility] [place] [address] OPERATIVE REPORT Name: ROSELINE ROCHE Room #: 448-P [facility] IN .R.#: [id number] Admission: 06/27/19 Attend Phys: Rosette Cantu Discharge: Date of : 64 Report #: [id number] DESCRIPTION OF PROCEDURE: Risks, benefits, alternatives, complications were discussed in detail with the patient including but not limited to risk of anesthesia, risk of damage to nerves, arteries, blood vessels, risk for infection, bleeding, risk for continued leg pain and need for further level amputation. Informed consent was obtained from the patient. The right leg was appropriately marked in the preoperative holding area. Patient was previously on Zosyn and vancomycin that was used for IV antibiotics. He was brought to the operating room and placed in supine position on operating room table. General anesthesia was induced without complication. Tourniquet was placed on the right thigh. Right lower extremity was prepped and draped in normal sterile fashion. Timeout was performed properly identifying the patient and procedure as well as the instrumentation. All in the operating room were in agreement. An incision was marked on the skin with a skin marker using a posterior based flap. The right lower extremity was elevated, tourniquet was inflated. Tourniquet time was 40 minutes. Skin incision was made with 10 blade through the skin. Dissection was taken down to the fascia circumferentially around the lower extremity with Bovie cautery. Tibia was dissected out, Wong elevator was used to clean off the periosteum and the tibia was resected with oscillating saw proximal to the skin incision level. Further dissection was made sharply along the posterior surface of the tibia, fibula was transected with an oscillating saw and the amputation was completed with a 10 blade. After this, the stump was thoroughly irrigated with normal saline. Vessels were identified and tied off with 0 silk. The tibial nerve was pulled taut and cut sharply with 10 blade to prevent neuroma formation and allowed to retract. Tourniquet was deflated and hemostasis was obtained with Bovie cautery. A Hemovac drain was placed. The posterior fascial flap was then sewn to the anterior fascia with 0 Vicryl, skin was closed with 2-0 Vicryl, skin staple and a soft dressing was applied. The patient tolerated this procedure well and went to recovery room under care of anesthesia postoperatively. <ELECTRONICALLY SIGNED> By: Johnie Cristobal MD 07/01/19 1607 [id number] Johnie Cristobal MD /nt
--- NOTE | 2019-07-01 16:29 | NUR ---
IT IS ANTICPATED THAT PT WILL DISHCARGE TO 5N ACUTE INPATIENT REHAB THIS DAY. REPORT TO BE CALLED TO . PT AND FAMILY ARE AWARE AND AGREEABLE. NO OTHER CM INTERVENTION INDICATED AT THIS TIME. CASE CLOSED.
--- NOTE | 2019-07-01 16:30 | NUR ---
ASSUMED CARE OF THE PT AT 0700. PT IS DISCHARGING TO REHAB. IV IS LEFT IN PLACE PER REHAB NURSE. REPORT GIVEN TO NURSE. PT LUNGS ARE CLEAR. PAIN CONTROLLED BY PAIN MEDS, SEE EMAR. R BKA WOUND DRESSING CHANGED WITH [id number], 4X4, ABD AND SOFT WRAP PER PA. PT IS UP IN WHEEL CHAIR, LOCKED. CALL LIGHT IS WITHIN REACH. BS CONTROLLED BY INSULIN, SEE EMAR. WILL CONTINUE TO MONITOR THE PT UNTIL DISCHARGED TO REHAB.
--- NOTE | 2019-07-01 20:15 | HC ---
[facility] [place] [address] CONSULTATION Name: ROSELINE ROCHE Room #: 448-P [facility] IN M.R.#: [id number] Admission: 06/27/19 Attend Phys: Rosette Cantu Discharge: 07/01/19 Date of : 64 Report #: [id number] THIS REPORT FOR: cc: CRYSTAL BURGOS Physician not on staff Volodymyr Root MD ~ THIS REPORT FOR: //name// CC: Rosette BURGOS Physician staff DATE OF SERVICE: 06/28/2019 INFECTIOUS DISEASE CONSULTATION REASON FOR CONSULTATION: I was asked to evaluate concerning right diabetic foot infection. HISTORY OF PRESENT ILLNESS: A 59-year-old known from his previous hospitalization in February where he diagnosed with osteomyelitis complicating Charcot right foot. He received prolonged course of antibiotic therapy. He had group G streptococcal bacteremia. Following discharge from alf, he did not follow up with me. He was seen by wound care service. Approximately 2 weeks ago, he noticed increased swelling and drainage from his foot. He was placed on doxycycline empirically, but did not improve. Now, he presents with increased pain up to 8 in severity. He has had drainage from his plantar and lateral foot. He does have peripheral neuropathy. REVIEW OF SYSTEMS: Ten-point review was negative other than what has been described above. PAST MEDICAL HISTORY: Tonsillectomy, diabetes, right hip surgery, hypertension, distal foot amputation on the right, peripheral neuropathy, nonhealing neuropathic foot wound, left shoulder ORIF, peripheral vascular disease, diabetes, and obesity. ALLERGIES: None known. MEDICATIONS: Doxycycline, multivitamin, potassium, Lasix, insulin, metformin, glimepiride, prior to his hospitalization, now on vancomycin and Zosyn. FAMILY HISTORY: Noncontributory. SOCIAL HISTORY: Nonsmoker, no significant alcohol intake. [facility] [address] [place] [address] CONSULTATION Name: ROSELINE ROCHE Room #: 448-P [facility] IN [facility].#: [id number] Admission: 06/27/19 Attend Phys: Rosette Cantu Discharge: 07/01/19 Date of : 64 Report #: [id number] PHYSICAL EXAMINATION: VITAL SIGNS: He is afebrile and hemodynamically stable. GENERAL: He is alert and cooperative and pleasant, in no acute distress. He was obese. SKIN: Without rash other than what will be described on his extremity examination. EYES: Without scleral icterus. MOUTH: Without mucositis. NECK: Supple. No palpable adenopathy. CHEST: Clear. HEART: Regular, without murmur. ABDOMEN: Soft and nontender with no hepatosplenomegaly or mass. EXTREMITIES: Right lower extremity with 1+ edema. Foot with previous distal foot amputation. There was warmth and erythema involving the foot with a 3 cm in diameter ulceration to the plantar aspect with a smaller wound, lateral aspect. Minimal drainage present currently. Pulses were intact. He had tenderness to his pretibial skin and calf. There was erythema involving the pretibial skin up to the proximal lower leg. There is minimal tenderness in his thigh. Knee had good range of motion. He had decreased sensation in his left foot. PSYCHIATRIC: Mood was normal. BACK: Nontender. LABORATORY STUDIES: Reviewed. Microbiology reviewed. X-rays reviewed. IMPRESSION: 1. A 59-year-old diabetic with peripheral neuropathy, vasculopathy, and Charcot foot, status post previous amputation of the distal foot. Presents now with nonhealing ulcer over the plantar aspect of his mid foot associated with x-ray changes concerning for progressive osteomyelitis. 2. Charcot foot. 3. Peripheral neuropathy. 4. Peripheral vascular disease. 5. Obesity. 6. Atrial fibrillation. RECOMMENDATIONS: We will continue broad antibiotic coverage, awaiting culture results. Repeat MRI scan and compared it to March study. Would have Orthopedic Surgery evaluate for the patient may require a BKA regarding this progressive changes. <ELECTRONICALLY SIGNED> By: Volodymyr Root MD 07/01/192014 1832 2317 Volodymyr Root MD /nt
--- NOTE | 2019-07-03 16:07 | PATH ---
[facility] [address] [place] [address] PATHOLOGY RPT PROCEDURE Name: ROSELINE ROCHE Jovita Room #: 448-P DIS IN M.R.#: [id number] Admission: 06/27/19 Date of : 64 Discharge: 07/01/19 Report #: [id number] Path Case #: [id number] [facility] Accession Number: [id number] . 01 Material submitted: . leg - RIGHT FOOT/LOWER LEG. Modifiers: right, lower . 01 Clinical history: . Right foot osteomyelitis . 02 Diagnosis: Extremity, lower, right, below knee amputation: - Viable skin and subcutaneous tissue present at margin of excision. - Skin of foot with large ulceration. - Underlying bone with focal acute osteomyelitis. - Arteries without significant atherosclerosis. - Status post previous amputation of four toes. . (YAO:yeison; 07/03/2019) [facility] 07/03/2019 1335 Local . 02 Electronically signed: . Adam Warren MD, Pathologist NPI- [id number] . 01 Gross description: . Received fresh in a red biohazard bag labeled "Roseline Roche, right foot/lower leg" is a right below the knee amputation specimen measuring 26.0 cm heel to toe and 21.8 cm heel to proximal skin soft tissue margin. The forefoot is status post amputation with only one toe present. This toe shows a thickened yellow-brown nail. The forefoot has multiple well-healed linear scars. Present on the plantar lateral aspect of the foot is a 4.8 x 4.0 cm open wound displaying bulging pink red subcutaneous tissue. On the right lateral foot is a yellow to pink-francisco lesion measuring 9.0 cm in length. All lesions are greater than 15 cm from the skin soft tissue margin. All margins appear grossly viable. Protruding from the proximal aspect is the fibula (14.0 cm in length and 1.2 cm in diameter) and tibia (11.5 cm in length and up to 4.3 cm in diameter). The tibial vasculature displays patent lumens. Business Change Manager sections are submitted as follows: . A1: Skin soft tissue margin A2: Skin lesions A3: Tibial vasculature A4: Proximal bone marrow A5: Bone deep to plantar foot ulceration (SDY; 07/02/2019) [place] [address] PATHOLOGY RPT PROCEDURE Name: ROSELINE ROCHE Room #: 448-P DIS IN M.R.#: [id number] Admission: 06/27/19 Date of : 64 Discharge: 07/01/19 Report #: [id number] Path Case #: [id number] SYU/SYU 07/02/2019 1621 Local . 02 Pathologist provided ICD-10: M86.171 . 02 CPT . 234088, 141671 Specimen Comment: A courtesy copy of this report has been sent to [phone], [phone] Specimen Comment: [phone] Specimen Comment: Report sent to / DR STARKEY Performed at: [address] [facility] [address], [place], [place] [id number] MD Mart Webster MD Phone: [phone] Performed at: [address] [facility] [id number] MD Melony Valladares MD Phone: [phone]
== END 2019-07-01 17:14 | DRG 853 ==
LOC: ER 17:29 → EROBS 19:17 → 3W 19:17 → 4S 06-28 21:05
PROVIDERS: Hospitalist; Nurse Practitioner Family; Physician Assistant; ADMIT Hospitalist
PROC: 0Y6H0Z2 Detachment at Right Lower Leg, Mid, Open Approach (ICD-10-PCS; principal; 2019-06-29)
DX: A41.9 Sepsis, unspecified organism (principal); E43 Unspecified severe protein-calorie malnutrition; M86.9 Osteomyelitis, unspecified; Z68.42 Body mass index [BMI] 45.0-49.9, adult; E44.0 Moderate protein-calorie malnutrition; E11.51 Type 2 diabetes mellitus with diabetic peripheral angiopathy without gangrene; M79.661 Pain in right lower leg; I10 Essential (primary) hypertension; I48.91 Unspecified atrial fibrillation; E66.01 Morbid (severe) obesity due to excess calories; E11.622 Type 2 diabetes mellitus with other skin ulcer; L97.519 Non-pressure chronic ulcer of other part of right foot with unspecified severity; Z89.421 Acquired absence of other right toe(s); Z83.3 Family history of diabetes mellitus; Z79.01 Long term (current) use of anticoagulants; Z90.89 Acquired absence of other organs; Z89.9 Acquired absence of limb, unspecified; Z82.49 Family history of ischemic heart disease and other diseases of the circulatory system; Z79.84 Long term (current) use of oral hypoglycemic drugs; Z79.4 Long term (current) use of insulin; Z79.899 Other long term (current) drug therapy
CPT/HCPCS: 10102; 10879; 50010; 50101; 50386; 51412; 51771; 53000; 53078; 56524; 56528; 57091; 57180; 62110; 62900; 70005

== ENCOUNTER 2019-07-01 14:04 | Inpatient (IN) | payer OTHER ==
[~2019-07-01] VITALS: Ht 180.3 cm; Wt 161.7 kg
[~2019-07-01 14:04] MED LIST changes: +DOXYCYCLINE HY100 M3 PO; +LANTUS SUBQ
[2019-07-01] MEDS ORDERED: PERCOCET 10-321 EAC1 PO ×2 (14:34)
[2019-07-01] MEDS ORDERED: COLACE 100 MG100 MG PO (14:34)
[2019-07-01] MEDS ORDERED: NEURONTIN 300300 M1 PO (14:34)
[2019-07-01] MEDS ORDERED: ANCEF 1GM1 GM/50 M2 IVPB (14:34)
[2019-07-01] MEDS ORDERED: ACETAMINOPHEN325 M1 PO (14:34)
[2019-07-01] MEDS ORDERED: SENNA8.6 MG PO (14:34)
[2019-07-01 19:20] VITALS: BP 125/61
[2019-07-02 05:56] LABS: HEMATOCRIT 28.1 % (42.0-52.0); MCH 24.9 pg (26.0-34.0); MCHC 32.1 g/dL (28.0-37.0); MCV 77.5 fL (80.0-100.0); RBC 3.62 mil/uL (4.50-6.00); RDW 17.3 % (10.5-14.5); WBC 6.5 thou/uL (4.0-11.0)
[2019-07-02 06:01] LABS: CALCIUM 8.4 mg/dL (8.5-10.1); CREATININE 0.9 mg/dL (0.7-1.3); POTASSIUM 3.7 mmol/L (3.5-5.1)
[2019-07-02 07:30] VITALS: BP 139/84
[2019-07-02 19:04] VITALS: BP 111/74
[2019-07-03 07:20] VITALS: BP 112/67
[2019-07-03 13:57] LABS: HEMATOCRIT 30.1 % (42.0-52.0); HEMOGLOBIN 9.7 gm/dL (14.0-18.0)
[2019-07-03 14:01] LABS: % SATURATION 13 % (20-39); IRON 25 ug/dL (65-175); TIBC 198 ug/dL (250-450)
[2019-07-03 14:28] LABS: TSH 1.18 uIU/mL (0.358-3.740)
[2019-07-03 14:59] LABS: FOLIC ACID 24.5 ng/mL (8.6-58.9)
[2019-07-03 19:40] VITALS: BP 118/98
[2019-07-04 08:00] VITALS: BP 136/71
[2019-07-04 09:05] VITALS: BP 136/71
[2019-07-04 20:00] VITALS: BP 133/84
[2019-07-05 08:52] VITALS: BP 122/73
[2019-07-05 22:00] VITALS: BP 123/77
[2019-07-06 08:30] VITALS: BP 120/74
[2019-07-06 19:52] VITALS: BP 125/71
[2019-07-07 08:00] VITALS: BP 127/54
--- NOTE | 2019-07-07 13:13 | HC ---
[facility] [place] [address] CONSULTATION Name: ROSELINE ROCHE Room #: 512-P [facility] IN M.R.#: [id number] Admission: 07/01/19 Attend Phys: Laureano Alvarez MD Discharge: Date of : 64 Report #: [id number] THIS REPORT FOR: cc: CRYSTAL REID Physician not on staff Malick Mcqueen MD ~ CC: Laureano Reid Physician staff DATE OF SERVICE: 07/06/2019 ENDOCRINE CONSULTATION NOTE CONSULTING PHYSICIAN: Dr. Laureano Alvarez. REASON FOR CONSULTATION: Uncontrolled type 2 diabetes mellitus and hypoglycemia. HISTORY OF PRESENT ILLNESS: This is a 59-year-old male patient whose medical background is significant for multiple medical issues including type 2 diabetes mellitus, hypertension, diabetic peripheral neuropathy and obesity. The patient has had type 2 diabetes mellitus for many years and at home has been maintained on a regimen consisting of Lantus insulin 45 units twice a day, Humalog supplemental scale taken at variable doses 2-3 times a day, averaging about 5 units per dose, glimepiride 2 mg b.i.d., metformin 500 mg b.i.d. The patient acknowledged that he does not monitor his blood glucose values at home nearly at all, but denied having had frequent issues with hypoglycemia as per his symptoms. The patient's background is negative for diabetic retinopathy, documented diabetic nephropathy, or coronary artery disease. However, he is known to have peripheral diabetic neuropathy requiring gabapentin therapy and he has been dealing with a nonhealing right foot wound for the past 3 years. Unfortunately, this culminated in an admission to [facility] on 06/27/2019 when the patient was found to have a nonhealing right foot diabetic ulcer and cellulitis revealing destructive osteomyelitis and ended up getting a right below-knee amputation on 06/29/2019. The patient recovered well from his surgery and was admitted to the rehab unit for further rehabilitative efforts. During his few days stay at the rehab unit, the patient demonstrated a pattern of recurrent fasting hypoglycemia while on the current regimen of Lantus insulin 40 units at bedtime. REVIEW OF SYSTEMS: [facility] [address] [place] [address] CONSULTATION Name: ROSELINE ROCHE Room #: 512-P [facility] IN M.R.#: [id number] Admission: 07/01/19 Attend Phys: Laureano Alvarez MD Discharge: Date of : 64 Report #: [id number] CONSTITUTIONAL: Fatigue, tiredness, but not fever or chills or body weight changes. HEENT: Negative for sinus pain, sinus congestion, ear drainage. PULMONARY: Occasional shortness of breath and cough, but no hemoptysis. CARDIAC: Occasional dyspnea on exertion, lower extremity swelling, but not chest pain or syncope. GASTROINTESTINAL: Abdominal distention, abdominal discomfort, occasional nausea, no vomiting. NEUROLOGY: Baseline peripheral diabetic neuropathy affecting lower extremities. No seizure activity or frequent severe headaches. No loss of consciousness. PSYCHIATRIC: Negative for delusions, hallucinations. Otherwise, review of systems noncontributory other than those mentioned in HPI. PAST MEDICAL HISTORY: 1. Type 2 diabetes mellitus. 2. Peripheral diabetic neuropathy. 3. Nonhealing right foot diabetic wound, status post right BKA a week ago. 4. Hypertension. 5. Obesity. 6. Peripheral vascular disease. PAST SURGICAL HISTORY: Multiple toe amputations, recent right BKA, tonsillectomy, remote right hip surgery. CURRENT MEDICATIONS: Reported medications; multivitamin once daily, Lantus insulin 45 units b.i.d., glimepiride 2 mg b.i.d., metformin 500 mg b.i.d., Humalog supplemental scale taken as 5 units t.i.d. a.c. with some variations, lisinopril 5 mg daily. ALLERGIES: The patient does not have any known drug allergies. FAMILY HISTORY: Noncontributory. SOCIAL HISTORY: The patient lives with his and son. Denies use of tobacco, alcohol or illicit drugs. He works at a farm. PHYSICAL EXAMINATION: GENERAL: This is a pleasant male patient who is not in apparent pain or distress. VITAL SIGNS: Blood pressure is 120/74 mmHg, heart rate is 80 beats per minute, respirations 20 per minute, temperature 36.6 degrees. CONSTITUTIONAL: The patient is sitting in his recliner chair, seemingly comfortable, not in apparent pain or distress. HEENT: Anicteric sclerae. Intact extraocular motions. NECK: Supple, without JVD, carotid bruits, no thyromegaly. CHEST: Noted for moderate entry bilaterally with scattered rales. [address] [address] CONSULTATION Name: ROSELINE ROCHE Room #: 512-P [facility] IN M.R.#: [id number] Admission: 07/01/19 Attend Phys: Laureano Alvarez MD Discharge: Date of : 64 Report #: [id number] HEART: Regular rate and rhythm without murmurs or gallops. ABDOMEN: Obese, but soft and lax. No guarding. Active bowel sounds. EXTREMITIES: Lower extremity exam is noted for status post right BKA. Right lower extremity surgical stump is wrapped in surgical dressing. Left lower extremity exam is noted for trace ankle edema. Stasis dermatitis. NEUROLOGIC: Awake, alert and oriented to time, place and person. The remainder of examination is nonfocal other than for diminished sensation over the left lower extremity. PSYCHIATRIC: Pleasant, interactive, appropriate. Normal mood and affect. LABORATORY DATA: The patient's blood glucose levels were reviewed over the past several days and he demonstrates a consistent pattern of fasting hypoglycemia with the lowest value being at 69 mg/dL earlier yesterday, he had a high of 282 mg/dL. Otherwise, sodium 139, potassium 3.7, chloride 103, CO2 of 31, anion gap 5, BUN 14, creatinine 0.9, glucose 109. AST 20, total bilirubin 1.1, calcium 8.4, magnesium 1.8, alkaline phosphatase 117, ALT 16, total protein 8.3, albumin 2.6, EGFR 87. Lactic acid 1.6. Total cholesterol 127, triglycerides 128, HDL cholesterol 21, LDL 81. Iron 25. INR 1.0. White blood count 6.5, hemoglobin 9.7, hematocrit 30.1, platelets 230. Hemoglobin A1c 8.4%. TSH 1.18. ASSESSMENT AND PLAN: 1. Type 2 diabetes mellitus. The patient's baseline is suboptimally controlled judging by his recorded hemoglobin A1c and the occurrence of the complications of neuropathy and peripheral vascular disease, culminating in right BKA recently. It is noticeable that his therapeutic needs have diminished greatly during this hospital stay, which the patient himself acknowledges is likely the result of limited food access and regulated diet. His current glucose pattern is suggestive of an overly aggressive basal insulin coverage with fasting hypoglycemia and intermittent postprandial hyperglycemia. As said, I would like to drop his Lantus further to 32 units q.p.m. while we increase his metformin dosage to goal dose of 1000 mg b.i.d. and add linagliptin 5 mg daily. I will keep his Humalog supplemental scale coverage at a low intensity as we monitor his blood glucose values a.c. and at bedtime. Further therapeutic adjustments will be made as needed based on his prospective blood glucose data. 2. Hypoglycemia. As noted above, insulin changes will be made as well as other therapeutic adjustments to avoid the recurrent fasting hypoglycemia. Blood glucose monitoring will commence a.c. and at bedtime and resuscitative efforts for hypoglycemia will be conducted as per protocol were necessary. 3. Hypertension. The patient's level of blood pressure control is adequate on the current regimen, he is to continue with the same. [address] [address] CONSULTATION Name: ROSELINE ROCHE Room #: 512-P [facility] IN .R.#: [id number] Admission: 07/01/19 Attend Phys: Laureano Alvarez MD Discharge: Date of : 64 Report #: [id number] 4. Diabetic neuropathy. The patient is maintained on gabapentin therapy with a seemingly adequate level of control, he is to continue the same. I have reviewed the patient's clinical care notes, laboratory data and other pertinent clinical data past and present for more than 35 minutes. I certainly appreciate this consultation by Dr. Alvarez. <ELECTRONICALLY SIGNED> By: Malick Mcqueen MD 07/07/19 1313 1302 1401 Malick Mcqueen MD /nt
[2019-07-07 19:00] VITALS: BP 118/64
[2019-07-08 07:32] VITALS: BP 120/65
[2019-07-08 19:57] VITALS: BP 133/58
[2019-07-09 07:35] VITALS: BP 111/70
[2019-07-09] MEDS ORDERED: TRADJENTA5 MG PO (10:16)
[2019-07-09] MEDS ORDERED: GLUCOPHAGE1000 MG PO (10:16)
[2019-07-09] MEDS ORDERED: LANTUS SUBQ (10:16)
[2019-07-09 20:00] VITALS: BP 119/53
[2019-07-10 08:00] VITALS: BP 100/58
--- NOTE | 2019-07-10 15:40 | PLAN ---
[facility] [place] [address] REHAB UNIT PLAN OF CARE Name: ROSELINE ROCHE Room #: 512-P ADM IN M.R.#: [id number] Admission: 07/01/19 Attend Phys: Laureano Alvarez MD Discharge: Date of : 64 Report #: [id number] THIS REPORT FOR: //name// CC: Laureano [facility] Physician staff DATE OF SERVICE: 07/03/2019 PROGRESS NOTE AND OVERALL PLAN OF CARE SUBJECTIVE: The patient is seen back today in followup. He is in no distress. Last recorded temperature 98.8, pulse 96, respirations 20, blood pressure 111/74. The patient is in no distress. Right below knee amputation has the stump streetcar operator in place. Left lower extremity was without breakdown over the foot or ankle. He has been working in therapies utilizing the sliding board for transfers, bed to wheelchair, contact guard assist. Bed mobility is standby assistance. He actually has taken less than 1 feet, kind of limited hop with a front-wheeled walker. In occupational therapy, lower body dressing is max assist. ASSESSMENT: 1. Osteomyelitis, status post right below-knee amputation on 06/29/2019. 2. Insulin-dependent diabetes mellitus. 3. Hypertension. 4. Premorbid peripheral neuropathy. 5. History of Charcot foot. 6. Obesity. PLAN: The overall plan of care is based on the preadmission screen, post-admission physician evaluation and information garnered from therapy assessments. 1. Estimated length of stay is through probably the end of next week. We would anticipate approximately 10 days. 2. Medical prognosis is reasonably good. 3. Anticipated interventions includes the interdisciplinary acute inpatient rehabilitation program. 4. Anticipated functional outcomes would be for the patient to become modified independent with transfers, mobility and ADLs, so that he can return home at a wheelchair/walker level. 5. Discharge destination would be back home with family. 6. Expected therapy by discipline includes PT and OT 1 and 1-1/2 hours per day [place] [id number] REHAB UNIT PLAN OF CARE Name: ROSELINE ROCHE Room #: 512-P [facility] IN .R.#: [id number] Admission: 07/01/19 Attend Phys: Laureano Alvarez MD Discharge: Date of : 64 Report #: [id number] each 5 days a week throughout the duration of the acute inpatient rehabilitation stay. <ELECTRONICALLY SIGNED> By: Laureano Alvarez MD 07/10/19 1540 1009 1947 Laureano Alvarez MD /nt
--- NOTE | 2019-07-10 15:40 | H ---
[facility] [place] [address] HISTORY AND PHYSICAL Name: ROSELINE ROCHE Room #: 512-P [facility] IN M.R.#: [id number] Admission: 07/01/19 Attend Phys: Laureano Alvarez MD Discharge: Date of : 64 Report #: [id number] THIS REPORT FOR: //name// CC: Laureano Alvarez [facility] Physician staff DATE OF SERVICE: 07/01/2019 HISTORY AND PHYSICAL AND POST-ADMISSION PHYSICIAN EVALUATION HISTORY OF PRESENT ILLNESS: The patient is a 59-year-old white male who has been admitted for acute in-hospital inpatient rehabilitation. Please see my prior consult dictation from yesterday. The patient had nonhealing diabetic right foot ulcer with extensive osteomyelitis, underwent right below-knee amputation on 06/29/2019. He also was treated for cellulitis. He had problems with insulin-dependent diabetes mellitus, morbid obesity, premorbid peripheral neuropathy, and Charcot foot. He has had a significant decline in his functional abilities and has been admitted for acute inpatient rehabilitation. Please see the admission documentation. Agree with the past medical history, allergies, social history, family history, and habits all as documented. MEDICATIONS: Please see the full medication listing. REVIEW OF SYSTEMS: A 14-point system as noted. No chest pain, shortness of breath, or abdominal discomfort. Examination, agree with the findings as documented. PHYSICAL EXAMINATION: GENERAL: The patient was in no distress. VITAL SIGNS: Last recorded temperature 98.4, pulse 88, respirations 18, and blood pressure 139/84. Agree with the examination findings as documented. CHEST: Clear. HEENT: Appeared benign. CARDIOVASCULAR: Regular rate and rhythm. ABDOMEN: Bowel sounds positive, nontender. BACK: No CVA tenderness. Normal inspection. EXTREMITIES: Functional range of motion of both upper extremities, he has functional range of motion of the left lower extremity is at least a grade 4-/5 strength. Right BKA is BRITTON wrapped. Proximal strength is probably a grade 4-. He can sit to stand with mod assist. SKIN: Normal skin color. NEUROLOGIC: Appeared to be intact. Cranial nerves are intact. Mood is appropriate. ASSESSMENT: A 59-year-old white male with the following problem list: [address] [address] HISTORY AND PHYSICAL Name: ROSELINE ROCHE Room #: 512-P ADM IN [facility].#: [id number] Admission: 07/01/19 Attend Phys: Laureano Alvarez MD Discharge: Date of : 64 Report #: [id number] 1. Osteomyelitis, status post right below-knee amputation in 06/29/2019. 2. Insulin-dependent diabetes mellitus. 3. Hypertension. 4. Premorbid peripheral neuropathy. 5. History of Charcot foot. 6. Obesity. PLAN: The patient has been admitted for acute in-hospital inpatient rehabilitation. From a postadmission physician evaluation perspective, there are no relevant changes since the preadmission screening. Please see the above review of prior and current medical and functional conditions and comorbidities. Please see the patient's previous and current functional status. As far as risk of complications, the patient has multiple medical comorbidities as noted above. Initial plan of care involves the interdisciplinary acute inpatient rehabilitation program. Measurable functional goals would be for the patient to become modified independent with transfers, mobility and ADLs, so that he can hopefully return back to his home setting. Goal will likely be to return back home at a wheelchair level. Prognosis is reasonably good with estimated length of stay probably at least 10 days to 2 weeks. Potential barriers would include his multiple medical comorbidities and decreased functional status. The patient's diagnosis appears appropriate. He meets the medical necessity criteria and we will have the managed services consultant physicians continue to follow. He does have the tolerance for therapies and has appropriate discharge goals back to the home setting. See Alessandra Archuleta, nurse practitioner's history and physical and I agree with her findings as documented. <ELECTRONICALLY SIGNED> By: Laureano Alvarez MD 07/10/19 1540 1522 1602 Laureano Alvarez MD /nt
[2019-07-10 19:18] VITALS: BP 126/81
[2019-07-11 06:57] LABS: HEMATOCRIT 31.2 % (42.0-52.0); HEMOGLOBIN 9.8 gm/dL (14.0-18.0); MCH 24.8 pg (26.0-34.0); MCHC 31.6 g/dL (28.0-37.0); MCV 78.5 fL (80.0-100.0); PLATELET COUNT 184 thou/uL (150-400); RBC 3.97 mil/uL (4.50-6.00); RDW 18.1 % (10.5-14.5); WBC 3.7 thou/uL (4.0-11.0)
[2019-07-11 07:09] LABS: CALCIUM 8.5 mg/dL (8.5-10.1); CREATININE 0.9 mg/dL (0.7-1.3); MAGNESIUM 1.9 mg/dL (1.8-2.4); POTASSIUM 3.9 mmol/L (3.5-5.1)
[2019-07-11 08:00] VITALS: BP 135/84
[2019-07-11 11:12] LABS: ABSOLUTE NEUTROPHILS 1.4 thou/uL (1.4-8.2); ANISOCYTOSIS 2+; METAMYELOCYTES 2 %
--- NOTE | 2019-07-11 11:16 | HC ---
[facility] [place] [address] CONSULTATION Name: ROSELINE ROCHE Room #: 512-P ADM IN M.R.#: [id number] Admission: 07/01/19 Attend Phys: Laureano Alvarez MD Discharge: Date of : 64 Report #: [id number] THIS REPORT FOR: cc: CRYSTAL BURGOS Physician not on staff Markos Kothari PhD ~ CC: Laureano BURGOS Physician staff DATE OF SERVICE: 07/06/2019 NEURO BEHAVIORAL STATUS EXAM ATTENDING PHYSICIAN: Laureano Alvarez MD FRONT LINE LEADER: Markos Kothari, PhD CLINICAL PRESENTATION: The patient is a 59-year-old white male admitted to [facility] with a nonhealing right foot diabetic ulcer and cellulitis. 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 The patient ultimately required a right qvkki-gfq-bphn amputation. He was admitted for inpatient rehabilitation for further care to improve functional mobility, activities of daily living and self-care. His diagnostic assessment on the rehab unit was osteomyelitis, status post right zlrnd-kfy-bbop amputation, hypertension, premorbid peripheral neuropathy, Charcot foot and obesity and insulin-dependent diabetes mellitus. A complete description of his medical condition and history can be found in his medical record. Neuropsychological consultation was requested to provide assistance in the assessment of cognitive and emotional status and to provide recommendations and services. Prior to this most recent medical event, he is reported to have been independent with instrumental activities of daily living including driving. The patient reports a great deal of frustration in the management of his foot. He states that he had been dealing with it for 4 years. He has 2 children. 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 He does not report a prior history of treatment for depression or anxiety, alcohol or drug abuse. Management of diabetes is described as his primary issue. TECHNIQUES UTILIZED: Clinical interview, review of medical records, staff [facility] [address] [place] [address] CONSULTATION Name: ROSELINE ROCHE Room #: 512-P [facility] IN .R.#: [id number] Admission: 07/01/19 Attend Phys: Laureano Alvarez MD Discharge: Date of : 64 Report #: [id number] consultation and behavioral observation, mini mental status exam 2 standard version and family interview -- . EXAMINATION FINDINGS: The patient was alert and cooperative with the assessment. He accurately described events surrounding his admission and subsequent amputation. There is no evidence of aphasia. Thoughts are logical and goal oriented. There is no report of auditory or visual hallucinations. He does not report difficulty with sleep, appetite or energy level. He also does not report difficulty with cognition, anxiety or depression. His reports the patient as doing well. She does not identify any problems with mood or adjustment. He is feeling very good with his decision for the amputation. Minimal phantom limb pain is described. Performance on the MMSE 2 brief version was of 13/16 suggesting mild deficit. He was 3/3 for initial registration, 5/5 for orientation to time and 4/[address] He was 1/3 for immediate recall of 3 items after a brief time delay and distraction. Performance on the MMSE 2 standard version was in the borderline range with a raw score of 23 of 30, which is a T score of 31 and percentile rank of 3. The patient was 2/5 for serial 7's. He was unable to accurately copy a simple geometric design. Visual spatial deficits with constructive deficits were noted on clock drawing. However, he was able to accurately place hands at designated time indicating satisfactory semantic memory. The patient is alert and oriented. However, deficits are noted in sustained concentration and immediate recall. Mild deficits in cognition, possibly associated with vascular disease associated with diabetes are suggested. DIAGNOSTIC IMPRESSION: Mild neurocognitive disorder, unspecified, without behavior disorder. RECOMMENDATIONS: The variability in cognition may be due to vascular disease. He may benefit from assistance from speech therapy to assist with development of compensatory strategies for areas of decreased cognition. If cognitive concerns persist, a more formal neuropsych assessment can be of benefit to clarify cognitive functioning. The patient and his will benefit from diabetic education to ensure adequate management of nutrition. Thank you very much for allowing me to provide the consultation on this patient. <ELECTRONICALLY SIGNED> By: Markos Kothari, PhD 07/11/19 1116 0826 0912 Markos Kothari, PhD /nt
[2019-07-11 19:53] VITALS: BP 131/73
[2019-07-12 08:00] VITALS: BP 138/85
[2019-07-12 21:00] VITALS: BP 140/70
[2019-07-13 08:58] VITALS: BP 113/65
[2019-07-13 20:37] VITALS: BP 154/69
[2019-07-14 08:00] VITALS: BP 137/77
[2019-07-15 07:35] VITALS: BP 131/76
[2019-07-15 19:39] VITALS: BP 142/95
[2019-07-16 05:41] LABS: ABSOLUTE NEUTROPHILS 2.4 thou/uL (1.4-8.2); BASOPHILS 1.1 % (0.0-2.0); EOSINOPHILS 3.7 % (0.0-3.0); HEMATOCRIT 32.8 % (42.0-52.0); HEMOGLOBIN 10.4 gm/dL (14.0-18.0); LYMPHOCYTES 40.3 % (24.0-44.0); MCHC 31.8 g/dL (28.0-37.0); MCV 78.8 fL (80.0-100.0); MONOCYTES 9.9 % (1.0-8.0); PLATELET COUNT 165 thou/uL (150-400); RBC 4.16 mil/uL (4.50-6.00); WBC 5.4 thou/uL (4.0-11.0)
[2019-07-16 05:50] LABS: CALCIUM 8.8 mg/dL (8.5-10.1); MAGNESIUM 1.8 mg/dL (1.8-2.4); POTASSIUM 3.9 mmol/L (3.5-5.1)
[2019-07-16 07:45] VITALS: BP 122/58
[2019-07-16 19:41] VITALS: BP 146/85
[2019-07-17 07:30] VITALS: BP 119/69
[2019-07-17] MEDS ORDERED: LOPRESSOR25 PO (12:14)
[2019-07-17] MEDS ORDERED: LANTUS SUBQ (12:15)
[2019-07-17] MEDS ORDERED: KEFLEX500 M1 PO (12:16)
== END 2019-07-17 15:51 | DRG 638 ==
LOC: ENTRNSPT 07-17 15:49
PROVIDERS: Hospitalist; Nurse Practitioner; ADMIT Physical Medicine & Rehabilitation
DX: E11.69 Type 2 diabetes mellitus with other specified complication (principal); M86.8X6 Other osteomyelitis, lower leg; L03.115 Cellulitis of right lower limb; G72.81 Critical illness myopathy; E44.0 Moderate protein-calorie malnutrition; Z68.42 Body mass index [BMI] 45.0-49.9, adult; D62 Acute posthemorrhagic anemia; I10 Essential (primary) hypertension; E11.42 Type 2 diabetes mellitus with diabetic polyneuropathy; E11.621 Type 2 diabetes mellitus with foot ulcer; L97.519 Non-pressure chronic ulcer of other part of right foot with unspecified severity; E66.01 Morbid (severe) obesity due to excess calories; E11.610 Type 2 diabetes mellitus with diabetic neuropathic arthropathy; R53.81 Other malaise; E11.51 Type 2 diabetes mellitus with diabetic peripheral angiopathy without gangrene; Z83.3 Family history of diabetes mellitus; G31.84 Mild cognitive impairment of uncertain or unknown etiology; Z89.511 Acquired absence of right leg below knee; I48.91 Unspecified atrial fibrillation; E11.649 Type 2 diabetes mellitus with hypoglycemia without coma; Z82.49 Family history of ischemic heart disease and other diseases of the circulatory system
CPT/HCPCS: 10112

== ENCOUNTER → 2019-10-10 | Outpatient (CLI) | payer OTHER ==
[~2019-10-10] MED LIST changes: +ACETAMINOPHEN325 M1 PO; +ANCEF 1GM1 GM/50 M2 IVPB; +COLACE 100 MG100 MG PO; +NEURONTIN 300300 M1 PO; +PERCOCET 10-321 EAC1 PO; +SENNA8.6 MG PO; +TRADJENTA5 MG PO
== END ==
LOC: HYPER 09:03
DX: T87.81 Dehiscence of amputation stump (principal); E11.51 Type 2 diabetes mellitus with diabetic peripheral angiopathy without gangrene; E11.610 Type 2 diabetes mellitus with diabetic neuropathic arthropathy; L84 Corns and callosities; I10 Essential (primary) hypertension; Z79.4 Long term (current) use of insulin; Z79.84 Long term (current) use of oral hypoglycemic drugs; Z79.01 Long term (current) use of anticoagulants; Z89.411 Acquired absence of right great toe; Z89.421 Acquired absence of other right toe(s); Y83.5 Amputation of limb(s) as the cause of abnormal reaction of the patient, or of later complication, without mention of misadventure at the time of the procedure

== ENCOUNTER → 2019-10-24 | Outpatient (CLI) | payer OTHER | LOC: HYPER 14:43 | DX: T87.81 Dehiscence of amputation stump (principal); E11.610 Type 2 diabetes mellitus with diabetic neuropathic arthropathy; E11.51 Type 2 diabetes mellitus with diabetic peripheral angiopathy without gangrene; L84 Corns and callosities; I10 Essential (primary) hypertension; M19.90 Unspecified osteoarthritis, unspecified site; Z79.01 Long term (current) use of anticoagulants; Z79.4 Long term (current) use of insulin; Z79.84 Long term (current) use of oral hypoglycemic drugs; Y83.5 Amputation of limb(s) as the cause of abnormal reaction of the patient, or of later complication, without mention of misadventure at the time of the procedure ==

== ENCOUNTER → 2019-11-11 | Outpatient (CLI) | payer OTHER | LOC: HYPER 12:04 | PROVIDERS: ATTEND Emergency Medicine | DX: T87.81 Dehiscence of amputation stump (principal); S81.801D Unspecified open wound, right lower leg, subsequent encounter; E11.51 Type 2 diabetes mellitus with diabetic peripheral angiopathy without gangrene; L84 Corns and callosities; E11.610 Type 2 diabetes mellitus with diabetic neuropathic arthropathy; E11.69 Type 2 diabetes mellitus with other specified complication; I10 Essential (primary) hypertension; M19.90 Unspecified osteoarthritis, unspecified site; Z79.4 Long term (current) use of insulin; Z79.01 Long term (current) use of anticoagulants; Z96.641 Presence of right artificial hip joint; Z89.411 Acquired absence of right great toe; Z89.421 Acquired absence of other right toe(s); Y83.5 Amputation of limb(s) as the cause of abnormal reaction of the patient, or of later complication, without mention of misadventure at the time of the procedure; X58.XXXD Exposure to other specified factors, subsequent encounter ==

== ENCOUNTER → 2019-11-25 | Outpatient (CLI) | payer OTHER | LOC: HYPER 13:18 | PROVIDERS: ATTEND Emergency Medicine | DX: T87.81 Dehiscence of amputation stump (principal); L84 Corns and callosities; E11.51 Type 2 diabetes mellitus with diabetic peripheral angiopathy without gangrene; E11.610 Type 2 diabetes mellitus with diabetic neuropathic arthropathy; E66.01 Morbid (severe) obesity due to excess calories; I10 Essential (primary) hypertension; M19.90 Unspecified osteoarthritis, unspecified site; Z79.4 Long term (current) use of insulin; Z79.01 Long term (current) use of anticoagulants; Z79.84 Long term (current) use of oral hypoglycemic drugs; Z68.42 Body mass index [BMI] 45.0-49.9, adult; Y83.5 Amputation of limb(s) as the cause of abnormal reaction of the patient, or of later complication, without mention of misadventure at the time of the procedure ==

== ENCOUNTER → 2019-12-09 | Outpatient (CLI) | payer OTHER | LOC: HYPER 11:59 | PROVIDERS: ATTEND Emergency Medicine | DX: T87.81 Dehiscence of amputation stump (principal); L84 Corns and callosities; E11.610 Type 2 diabetes mellitus with diabetic neuropathic arthropathy; E11.51 Type 2 diabetes mellitus with diabetic peripheral angiopathy without gangrene; E66.01 Morbid (severe) obesity due to excess calories; I10 Essential (primary) hypertension; M19.90 Unspecified osteoarthritis, unspecified site; Z79.01 Long term (current) use of anticoagulants; Z79.4 Long term (current) use of insulin; Z79.84 Long term (current) use of oral hypoglycemic drugs; Z68.42 Body mass index [BMI] 45.0-49.9, adult; Y83.5 Amputation of limb(s) as the cause of abnormal reaction of the patient, or of later complication, without mention of misadventure at the time of the procedure ==

== ENCOUNTER → 2019-12-23 | Outpatient (CLI) | payer OTHER | LOC: HYPER 13:39 | PROVIDERS: ATTEND Emergency Medicine | DX: T87.89 Other complications of amputation stump (principal); E11.622 Type 2 diabetes mellitus with other skin ulcer; L97.811 Non-pressure chronic ulcer of other part of right lower leg limited to breakdown of skin; E11.51 Type 2 diabetes mellitus with diabetic peripheral angiopathy without gangrene; L84 Corns and callosities; E11.610 Type 2 diabetes mellitus with diabetic neuropathic arthropathy; E11.69 Type 2 diabetes mellitus with other specified complication; I10 Essential (primary) hypertension; M19.90 Unspecified osteoarthritis, unspecified site; Z79.4 Long term (current) use of insulin; Z79.01 Long term (current) use of anticoagulants; Z89.411 Acquired absence of right great toe; Z89.421 Acquired absence of other right toe(s); Y83.5 Amputation of limb(s) as the cause of abnormal reaction of the patient, or of later complication, without mention of misadventure at the time of the procedure ==

== ENCOUNTER → 2020-01-21 | Outpatient (CLI) | payer OTHER | LOC: HYPER 14:08 | PROVIDERS: ATTEND Emergency Medicine | DX: T87.81 Dehiscence of amputation stump (principal); E11.51 Type 2 diabetes mellitus with diabetic peripheral angiopathy without gangrene; E11.610 Type 2 diabetes mellitus with diabetic neuropathic arthropathy; E11.69 Type 2 diabetes mellitus with other specified complication; I10 Essential (primary) hypertension; M19.90 Unspecified osteoarthritis, unspecified site; Z79.4 Long term (current) use of insulin; Z89.411 Acquired absence of right great toe; Z89.421 Acquired absence of other right toe(s); Y83.5 Amputation of limb(s) as the cause of abnormal reaction of the patient, or of later complication, without mention of misadventure at the time of the procedure ==

== ENCOUNTER → 2020-02-24 | Outpatient (CLI) | payer OTHER | LOC: HYPER 13:47 | PROVIDERS: ATTEND Emergency Medicine | DX: T87.81 Dehiscence of amputation stump (principal); L84 Corns and callosities; E11.610 Type 2 diabetes mellitus with diabetic neuropathic arthropathy; E11.51 Type 2 diabetes mellitus with diabetic peripheral angiopathy without gangrene; E66.01 Morbid (severe) obesity due to excess calories; I10 Essential (primary) hypertension; M19.90 Unspecified osteoarthritis, unspecified site; Z79.4 Long term (current) use of insulin; Z79.84 Long term (current) use of oral hypoglycemic drugs; Z79.01 Long term (current) use of anticoagulants; Z68.42 Body mass index [BMI] 45.0-49.9, adult; Y83.5 Amputation of limb(s) as the cause of abnormal reaction of the patient, or of later complication, without mention of misadventure at the time of the procedure ==

== ENCOUNTER → 2020-03-09 | Outpatient (CLI) | payer OTHER | LOC: HYPER 13:11 | PROVIDERS: ATTEND Emergency Medicine | DX: T87.81 Dehiscence of amputation stump (principal); E11.622 Type 2 diabetes mellitus with other skin ulcer; L97.812 Non-pressure chronic ulcer of other part of right lower leg with fat layer exposed; E11.51 Type 2 diabetes mellitus with diabetic peripheral angiopathy without gangrene; I10 Essential (primary) hypertension; M19.90 Unspecified osteoarthritis, unspecified site; Z79.4 Long term (current) use of insulin; Z79.01 Long term (current) use of anticoagulants; Z89.411 Acquired absence of right great toe; Y83.5 Amputation of limb(s) as the cause of abnormal reaction of the patient, or of later complication, without mention of misadventure at the time of the procedure ==

== ENCOUNTER → 2020-03-30 | Outpatient (CLI) | payer OTHER | LOC: HYPER 10:39 | PROVIDERS: ATTEND Emergency Medicine | DX: T87.81 Dehiscence of amputation stump (principal); E11.622 Type 2 diabetes mellitus with other skin ulcer; L97.812 Non-pressure chronic ulcer of other part of right lower leg with fat layer exposed; E11.51 Type 2 diabetes mellitus with diabetic peripheral angiopathy without gangrene; E66.01 Morbid (severe) obesity due to excess calories; I10 Essential (primary) hypertension; M19.90 Unspecified osteoarthritis, unspecified site; Z79.01 Long term (current) use of anticoagulants; Z79.4 Long term (current) use of insulin; Z68.42 Body mass index [BMI] 45.0-49.9, adult; Y83.5 Amputation of limb(s) as the cause of abnormal reaction of the patient, or of later complication, without mention of misadventure at the time of the procedure ==

== ENCOUNTER → 2020-04-22 | Outpatient (CLI) | payer OTHER | LOC: HYPER 10:01 | PROVIDERS: ATTEND Emergency Medicine | DX: T87.81 Dehiscence of amputation stump (principal); E11.622 Type 2 diabetes mellitus with other skin ulcer; L97.812 Non-pressure chronic ulcer of other part of right lower leg with fat layer exposed; L84 Corns and callosities; E11.51 Type 2 diabetes mellitus with diabetic peripheral angiopathy without gangrene; I10 Essential (primary) hypertension; E66.01 Morbid (severe) obesity due to excess calories; M19.90 Unspecified osteoarthritis, unspecified site; Z79.01 Long term (current) use of anticoagulants; Z79.4 Long term (current) use of insulin; Z68.42 Body mass index [BMI] 45.0-49.9, adult; Y83.5 Amputation of limb(s) as the cause of abnormal reaction of the patient, or of later complication, without mention of misadventure at the time of the procedure ==

== ENCOUNTER → 2020-06-08 | Outpatient (CLI) | payer OTHER | LOC: HYPER 13:12 | PROVIDERS: ATTEND Emergency Medicine | DX: T87.81 Dehiscence of amputation stump (principal); E11.622 Type 2 diabetes mellitus with other skin ulcer; L97.812 Non-pressure chronic ulcer of other part of right lower leg with fat layer exposed; L84 Corns and callosities; E11.51 Type 2 diabetes mellitus with diabetic peripheral angiopathy without gangrene; I10 Essential (primary) hypertension; E66.01 Morbid (severe) obesity due to excess calories; M19.90 Unspecified osteoarthritis, unspecified site; Z79.01 Long term (current) use of anticoagulants; Z79.4 Long term (current) use of insulin; Z68.42 Body mass index [BMI] 45.0-49.9, adult; Y83.5 Amputation of limb(s) as the cause of abnormal reaction of the patient, or of later complication, without mention of misadventure at the time of the procedure ==

== ENCOUNTER 2020-07-07 13:11 | Inpatient (IN) | payer OTHER ==
[~2020-07-07] VITALS: Ht 180.3 cm; Wt 170.8 kg
[2020-07-07 13:13] VITALS: BP 145/76
[2020-07-07 13:59] LABS: ABSOLUTE NEUTROPHILS 6.1 thou/uL (1.4-8.2); BASOPHILS 1.2 % (0.0-2.0); EOSINOPHILS 1.4 % (0.0-3.0); HEMATOCRIT 31.9 % (42.0-52.0); HEMOGLOBIN 10.2 gm/dL (14.0-18.0); LYMPHOCYTES 15.1 % (24.0-44.0); MCH 24.2 pg (26.0-34.0); MCV 75.5 fL (80.0-100.0); PLATELET COUNT 208 thou/uL (150-400); POLYS 75.3 % (36.0-66.0); RBC 4.23 mil/uL (4.50-6.00); RDW 18.3 % (10.5-14.5); WBC 8.1 thou/uL (4.0-11.0)
[2020-07-07 14:07] LABS: CALCIUM 8.8 mg/dL (8.5-10.1); CREATININE 1.1 mg/dL (0.7-1.3); POTASSIUM 4.2 mmol/L (3.5-5.1)
[2020-07-07 14:13] LABS: TOTAL BILIRUBIN 0.4 mg/dL (0.2-1.0); TOTAL PROTEIN 7.4 g/dL (6.4-8.2)
[2020-07-07 16:07] VITALS: BP 135/75
[2020-07-07 16:25] VITALS: BP 135/92
[2020-07-07 17:30] VITALS: BP 150/70
[2020-07-08] VITALS (9 sets, daily range): BP systolic 116–145; BP diastolic 55–101
[2020-07-08 03:59] LABS: HEMATOCRIT 32.5 % (42.0-52.0); MCH 23.5 pg (26.0-34.0); MCHC 30.8 g/dL (28.0-37.0); MCV 76.3 fL (80.0-100.0); RBC 4.26 mil/uL (4.50-6.00); RDW 18.7 % (10.5-14.5); WBC 8.4 thou/uL (4.0-11.0)
[2020-07-08 04:02] LABS: CALCIUM 8.8 mg/dL (8.5-10.1); CREATININE 1.1 mg/dL (0.7-1.3); POTASSIUM 4.1 mmol/L (3.5-5.1)
--- NOTE | 2020-07-08 07:21 | EKG ---
[address] [address] ELECTROCARDIOGRAM REPORT Name: ROSELINE ROCHE Room #: 358-P ADM IN .R.#: [id number] Admission: 07/07/20 Attend Phys: Javier Montgomery MD Discharge: Date of : 64 Report #: [id number] [facility] ED Test Date: 2020-07-07 Test Time: 16:20:21 Pat Name: ROSELINE ROCHE Department: Room: [facility] Gender: M Health And Safety Manager: JUSTIN : 1960 Requested By: Dallin Hernandez Order Number: [id number] MD: Paulie Porter Measurements Intervals [place] Rate: 105 P: IA: QRS: -29 QRSD: 85 T: 137 QT: 336 QTc: 445 Interpretive Statements Atrial flutter Borderline left axis deviation Nonspecific T abnormalities, lateral leads Lead(s) II were not used for morphology analysis Compared to ECG 03/06/2019 22:47:10 T-wave abnormality now present Atrial fibrillation no longer present Poor R-wave progression no longer present ST (T wave) deviation no longer present Electronically Signed On 07-08-2020 7:21:25 COSMETIC COUNSELOR by Paulie Proter [email or web address] <ELECTRONICALLY SIGNED> By: Paulie Porter MD, FACC 07/08/20 0721 1620 1620 Paulie Porter MD, [facility] /EPI
[2020-07-08 09:28] LABS: % SATURATION 8 % (20-39); IRON 23 ug/dL (65-175); TIBC 282 ug/dL (250-450)
--- NOTE | 2020-07-08 12:06 | HC ---
[facility] [place] [address] CONSULTATION Name: ROSELINE ROCHE Room #: 358-P ADM IN M.R.#: [id number] Admission: 07/07/20 Attend Phys: Javier Montgomery MD Discharge: Date of : 64 Report #: [id number] THIS REPORT FOR: cc: FAM - Family physician unknown FAM - Family physician unknown Ze Zhao MD ~ DATE OF SERVICE: 07/08/2020 CHIEF COMPLAINT: Left heel ulceration. HISTORY OF PRESENT ILLNESS: This is a 60-year-old male patient with whom I am familiar from multiple hospitalizations. He has a prior right below-knee amputation for nonhealing diabetic ulcer of his right lower extremity. He has been in a rehab facility and has been using his left heel to propel himself in his wheelchair. He has developed necrosis of the heel and surrounding erythema. He is admitted through the hospital for further evaluation and treatment. I have been asked to see him with regard to wound care. The patient states he has no pain. He has severe peripheral neuropathy and has really no sensation whatsoever in his leg. PAST MEDICAL HISTORY: Positive for history of prior right below-knee amputation, type 2 diabetes mellitus, hypertension, previous right hip surgery, peripheral vascular disease noted on the left side, hypertension and obesity. SOCIAL HISTORY: Negative for alcohol or tobacco use. FAMILY HISTORY: Noncontributory. CURRENT MEDICATIONS: Include Tylenol, gabapentin, metformin, Tradjenta, Eliquis, metoprolol and Lantus. ALLERGIES: No known drug allergies. REVIEW OF SYSTEMS: CONSTITUTIONAL: The patient denies fever, chills or weight loss. NEUROLOGICAL: The patient denies focal weakness, has severe peripheral neuropathy, which is not a new development. ENT: The patient denies earache, nasal drainage or sore throat. CARDIOVASCULAR: The patient denies chest pain, palpitations or diaphoresis. PULMONARY: The patient denies cough or shortness of breath. GASTROINTESTINAL: The patient denies nausea, vomiting, diarrhea or abdominal pain. ORTHOPEDIC: The patient does not have any pain in his lower extremities. He has some areas involving his right BKA site that is not entirely healed. He has scattered small ulcerations to the left lower extremity as well as a larger [address] [address] CONSULTATION Name: ROSELINE ROCHE Room #: 358-P [facility] IN ..#: [id number] Admission: 07/07/20 Attend Phys: Javier Montgomery MD Discharge: Date of : 64 Report #: [id number] ulceration to the left posterior heel. Other systems in a 14-point review of systems are negative. PHYSICAL EXAMINATION: VITAL SIGNS: At this time include temperature 37.2, pulse 94, respiratory rate 18, blood pressure 134/77. GENERAL: This is a somewhat chronically ill-appearing male patient who appears to be in no obvious distress. HEENT: Head, normocephalic. Nose and throat clear. NECK: Supple. LUNGS: Clear. ABDOMEN: Bowel sounds present. EXTREMITIES: Examination of the lower extremities demonstrates 3+ edema to both lower extremities including his right below-knee amputation site. There are several areas of ulceration on the distal portion of the stump. These may very well likely be related to the significant edema. Left leg demonstrates scattered small ulcerations to the pretibial region also likely associated with his edema. He has a large, but dry stable eschar involving almost the entirety of the posterior heel on the left side. There is surrounding erythema, although there is no tenderness. Distal pulses are not palpable. NEUROLOGIC: The patient is alert, oriented and appropriate. LABORATORY DATA: Include white blood cell count 8.4 with hemoglobin of 10.0. Sodium 135, potassium 4.1, chloride 97, CO2 of 31, BUN 13, creatinine 1.1, glucose 335, albumin is 3.0. Left lower extremity arterial Doppler demonstrates a 70% stenosis of the distal [place] left superficial femoral artery, 80% stenosis of the mid [place] left popliteal artery and unchanged occlusion of the left peroneal and posterior tibial artery that was previously noted on the 2019 angiogram. CLINICAL IMPRESSION: 1. Diabetic ulceration to the left posterior heel with dry necrosis, likely this is a function of his diabetes and severe peripheral vascular disease that was brought on by trauma and pressure related to him using his heel to propel himself in his wheelchair. 2. Diabetes mellitus type 2. 3. Severe peripheral vascular disease. 4. Morbid obesity. 5. Lower extremity edema, possibly related to overall volume overload and cardiomyopathy. RECOMMENDATIONS: At this point in time, we discussed this case with Dr. Almanza. The patient will be taken for angiography today in an attempt to improve blood flow. I think we will use topical Betadine paint to the dry eschar. I do not think it would be dasilva to debride the eschar from his heel at [facility] [address] [address] CONSULTATION Name: ROSELINE ROCHE Room #: 358-P ADM IN M.R.#: [id number] Admission: 07/07/20 Attend Phys: Javier Montgomery MD Discharge: Date of : 64 Report #: [id number] this point in time as this area has a high likelihood of nonhealing. I think he would likely benefit from diuresis. We will use a silver alginate, ABD, Kerlix and Pete to control edema on the right BKA site. I am reluctant to use compression at present at least until we may have better blood flow on the left side. I have reviewed findings and recommendations, but the patient is agreeable with current plan. I appreciate being asked to see him in consultation. <ELECTRONICALLY SIGNED> By: Ze Zhao MD 07/08/20 1206 1111 1124 Ze Zhao MD /nt
[2020-07-09 00:02] VITALS: BP 128/80
[2020-07-09 04:11] VITALS: BP 137/69
[2020-07-09 06:30] LABS: HEMATOCRIT 31.7 % (42.0-52.0); HEMOGLOBIN 9.7 gm/dL (14.0-18.0); MCH 23.6 pg (26.0-34.0); MCHC 30.7 g/dL (28.0-37.0); MCV 76.9 fL (80.0-100.0); RBC 4.13 mil/uL (4.50-6.00); RDW 18.6 % (10.5-14.5); WBC 8.2 thou/uL (4.0-11.0)
[2020-07-09 06:32] LABS: CALCIUM 8.7 mg/dL (8.5-10.1)
[2020-07-09 08:58] VITALS: BP 132/84
--- NOTE | 2020-07-09 11:52 | HC ---
[facility] [place] [address] CONSULTATION Name: ROSELINE ROCHE Room #: 358-P ADM IN M.R.#: [id number] Admission: 07/07/20 Attend Phys: Javier Montgomery MD Discharge: Date of : 64 Report #: [id number] THIS REPORT FOR: cc: FAM - Family physician unknown FAM - Family physician unknown Jayjay Palacios MD ~ DATE OF SERVICE: 07/08/2020 INFECTIOUS DISEASE CONSULTATION ATTENDING PHYSICIAN: Dr. Montgomery. REASON FOR EVALUATION: Gangrenous changes associated with the left heel. HISTORY OF SUBJECTIVE: Chart reviewed, patient examined. This is a 60-year-old gentleman with known diabetes mellitus, which has been complicated by significant vasculopathy, previous right BKA within the last year, who scoots with his wheelchair, developed a wound in the posterior aspect of his foot apparently at some point. He is not clear about the timing, had apparently noted some purulent drainage as well as some pain, although he denies any pain at this point, although he admits to fairly profound peripheral neuropathy. Due to concern about deep infection, he was referred and subsequently admitted, confirmed to be anemic with hemoglobin of 10, CRP mildly elevated at 54.4, lactic acid initially 3.1, repeat was down to 1.7. His glucose was 314. Plain film of the heel showed no evidence of bony changes that would favor diagnosis of osteomyelitis. Sed rate was 65. Does have significant arterial occlusive disease involving the left lower extremity. Coronavirus testing was positive for PCR. Blood cultures collected at time of admission are pending. He was empirically started on therapy with Zosyn and vancomycin. He is mildly encephalopathic, lethargic, although denies any pulmonary or gastrointestinal-related complaints. ALLERGIES: None known. MEDICATIONS: Include clopidogrel, linagliptin, furosemide, vancomycin, gabapentin, metoprolol, insulin lispro, insulin glargine, apixaban, and Zosyn. PAST MEDICAL HISTORY: As described above, diabetes mellitus, insulin requiring; hypertension, previous right ginum-sws-zkfp amputation, has peripheral vascular disease, peripheral neuropathy. SOCIAL HISTORY: Nonsmoker, no ethanol, no illicit drug use. FAMILY HISTORY: Noncontributory. [address] [address] CONSULTATION Name: ROSELINE ROCHE Room #: 358-P [facility] IN .R.#: [id number] Admission: 07/07/20 Attend Phys: Javier Montgomery MD Discharge: Date of : 64 Report #: [id number] REVIEW OF SYSTEMS: Otherwise, unremarkable. PHYSICAL EXAMINATION: GENERAL: He is in ieha-qu-srsycvqq distress. He is obese, is lethargic post procedure, appears somewhat undernourished. VITAL SIGNS: Temperature 99.1, pulse 91, respirations 17, blood pressure 122/76. SKIN: Warm, dry, no rashes. HEENT: Nasal cannula in place post procedure, although he has been on room air. NECK: Supple. LUNGS: Diminished breath sounds. HEART: Regular. I do not appreciate a murmur. ABDOMEN: Obese, soft, nontender. EXTREMITIES: Right djtma-zsj-lfnf amputation stump fairly unremarkable. A photograph of the left heel revealed fairly large several centimeter area of cutaneous necrosis with blackened eschar. There is moderate degree of marginal inflammatory surface signs. GENITOURINARY AND RECTAL: Deferred. LABORATORY DATA: Ferritin normal at 40. Blood cultures sterile thus far. Electrolytes: Sodium 135, potassium 4.1, chloride 97, bicarbonate is 31, anion gap of 7, BUN and creatinine 13 and 1.1, glucose of 335. Estimated GFR of 69. Lactic acid, most recently 1.7. CBC: White count of 8.4, H and H 10.0 and 32.5, platelets of 192. Coronavirus testing was positive. ASSESSMENT: Left heel necrosis, setting of uncontrolled diabetes mellitus. Agree with concern about possible deep infection, although initial imaging does not suggest osteomyelitis. We will continue empiric therapy with combination noted efforts to improve vascularity secondary to positive COVID PCR test. We will check a chest x-ray, although he is not complaining of significant pulmonary complaints. It might be worthwhile initiated on ivermectin at this point. We would consider remdesivir if he had worsening signs or symptoms. Corticosteroids are certainly something to consider as well, although I am sure would have potential detrimental effects as well. Initiate vitamin support. He remains tenuous. Monitor expectantly. Initiate incentive spirometry. <ELECTRONICALLY SIGNED> By: Jayjay Palacios MD 07/09/20 1152 1437 1626 Jayjay Palacios MD /nt
[2020-07-09 17:41] VITALS: BP 134/68
[2020-07-09 20:22] VITALS: BP 151/85
[2020-07-10 04:19] VITALS: BP 138/104
[2020-07-10 07:22] VITALS: BP 144/84
[2020-07-10 10:53] VITALS: BP 148/84
[2020-07-10] MEDS ORDERED: NEURONTIN 300M300 M2 PO (12:11)
[2020-07-10] MEDS ORDERED: CLOPIDOGREL75 MG PO (12:11)
[2020-07-10] MEDS ORDERED: ZINC SULFATE 2220 MG PO (12:12)
[2020-07-11] MEDS ORDERED: AUGMENTIN 875-1 EACH PO (08:13)
== END 2020-07-10 15:00 | DRG 853 ==
LOC: ER 13:11 → EROBS 15:26 → 3W 15:26 → 4W 15:26 → 3W 07-08
PROVIDERS: Nuclear Medicine Nuclear Cardiology; Nurse Practitioner; Physician Assistant; ADMIT Internal Medicine; ATTEND Internal Medicine
PROC: 047L3DZ Dilation of Left Femoral Artery with Intraluminal Device, Percutaneous Approach (ICD-10-PCS; principal; 2020-07-08)
PROC: 04CL3ZZ Extirpation of Matter from Left Femoral Artery, Percutaneous Approach (ICD-10-PCS; principal; 2020-07-08)
PROC: 047N3D1 Dilation of Left Popliteal Artery with Intraluminal Device, using Drug-Coated Balloon, Percutaneous Approach (ICD-10-PCS; principal; 2020-07-08)
PROC: B41D1ZZ Fluoroscopy of Aorta and Bilateral Lower Extremity Arteries using Low Osmolar Contrast (ICD-10-PCS; principal; 2020-07-08)
PROC: 04CN3ZZ Extirpation of Matter from Left Popliteal Artery, Percutaneous Approach (ICD-10-PCS; principal; 2020-07-08)
PROC: B4181ZZ Fluoroscopy of Bilateral Renal Arteries using Low Osmolar Contrast (ICD-10-PCS; principal; 2020-07-08)
DX: A41.9 Sepsis, unspecified organism (principal); U07.1 COVID-19; L97.429 Non-pressure chronic ulcer of left heel and midfoot with unspecified severity; I42.9 Cardiomyopathy, unspecified; I48.92 Unspecified atrial flutter; E11.52 Type 2 diabetes mellitus with diabetic peripheral angiopathy with gangrene; I96 Gangrene, not elsewhere classified; M31.9 Necrotizing vasculopathy, unspecified; E44.1 Mild protein-calorie malnutrition; Z68.43 Body mass index [BMI] 50.0-59.9, adult; I10 Essential (primary) hypertension; E11.42 Type 2 diabetes mellitus with diabetic polyneuropathy; E11.65 Type 2 diabetes mellitus with hyperglycemia; E66.01 Morbid (severe) obesity due to excess calories; E11.621 Type 2 diabetes mellitus with foot ulcer; I48.91 Unspecified atrial fibrillation; Z79.4 Long term (current) use of insulin; Z89.421 Acquired absence of other right toe(s); Z83.3 Family history of diabetes mellitus; Z79.01 Long term (current) use of anticoagulants
CPT/HCPCS: 10045; 10879

== ENCOUNTER → 2020-10-21 | Outpatient (CLI) | payer OTHER ==
[~2020-10-21] MED LIST changes: +AUGMENTIN 875-1 EACH PO; +CLOPIDOGREL75 MG PO; +NEURONTIN 300M300 M2 PO; +ZINC SULFATE 2220 MG PO
== END ==
LOC: HYPER 16:13
PROVIDERS: ATTEND Emergency Medicine
DX: E11.621 Type 2 diabetes mellitus with foot ulcer (principal); L89.623 Pressure ulcer of left heel, stage 3; L97.422 Non-pressure chronic ulcer of left heel and midfoot with fat layer exposed; L84 Corns and callosities; E11.51 Type 2 diabetes mellitus with diabetic peripheral angiopathy without gangrene; I10 Essential (primary) hypertension; E66.01 Morbid (severe) obesity due to excess calories; M19.90 Unspecified osteoarthritis, unspecified site; Z79.01 Long term (current) use of anticoagulants; Z79.4 Long term (current) use of insulin; Z68.42 Body mass index [BMI] 45.0-49.9, adult; Z89.511 Acquired absence of right leg below knee

== ENCOUNTER → 2020-11-09 | Outpatient (CLI) | payer OTHER | LOC: HYPER 08:26 | PROVIDERS: ATTEND Emergency Medicine | DX: E11.621 Type 2 diabetes mellitus with foot ulcer (principal); L89.623 Pressure ulcer of left heel, stage 3; L97.422 Non-pressure chronic ulcer of left heel and midfoot with fat layer exposed; L84 Corns and callosities; E11.51 Type 2 diabetes mellitus with diabetic peripheral angiopathy without gangrene; I10 Essential (primary) hypertension; E66.01 Morbid (severe) obesity due to excess calories; M19.90 Unspecified osteoarthritis, unspecified site; Z79.01 Long term (current) use of anticoagulants; Z79.4 Long term (current) use of insulin; Z68.42 Body mass index [BMI] 45.0-49.9, adult; Z89.511 Acquired absence of right leg below knee ==

== ENCOUNTER → 2020-12-02 | Outpatient (CLI) | payer OTHER | LOC: HYPER 07:49 | PROVIDERS: ATTEND Emergency Medicine | DX: E11.621 Type 2 diabetes mellitus with foot ulcer (principal); L89.623 Pressure ulcer of left heel, stage 3; L97.422 Non-pressure chronic ulcer of left heel and midfoot with fat layer exposed; L84 Corns and callosities; E11.51 Type 2 diabetes mellitus with diabetic peripheral angiopathy without gangrene; I10 Essential (primary) hypertension; E66.01 Morbid (severe) obesity due to excess calories; M19.90 Unspecified osteoarthritis, unspecified site; Z79.01 Long term (current) use of anticoagulants; Z79.4 Long term (current) use of insulin; Z68.42 Body mass index [BMI] 45.0-49.9, adult; Z89.511 Acquired absence of right leg below knee ==

== ENCOUNTER → 2020-12-17 | Outpatient (CLI) | payer OTHER | LOC: HYPER 07:53 | PROVIDERS: ATTEND Emergency Medicine | DX: E11.621 Type 2 diabetes mellitus with foot ulcer (principal); L89.623 Pressure ulcer of left heel, stage 3; L97.421 Non-pressure chronic ulcer of left heel and midfoot limited to breakdown of skin; S80.812A Abrasion, left lower leg, initial encounter; E11.51 Type 2 diabetes mellitus with diabetic peripheral angiopathy without gangrene; E11.69 Type 2 diabetes mellitus with other specified complication; R21 Rash and other nonspecific skin eruption; I10 Essential (primary) hypertension; M19.90 Unspecified osteoarthritis, unspecified site; E66.9 Obesity, unspecified; Z68.42 Body mass index [BMI] 45.0-49.9, adult; Z79.4 Long term (current) use of insulin; Z79.01 Long term (current) use of anticoagulants; Z89.511 Acquired absence of right leg below knee; Z89.411 Acquired absence of right great toe; Z89.421 Acquired absence of other right toe(s); Z98.890 Other specified postprocedural states; Z79.899 Other long term (current) drug therapy; X58.XXXA Exposure to other specified factors, initial encounter; Y93.89 Activity, other specified; Y92.89 Other specified places as the place of occurrence of the external cause; Y99.8 Other external cause status ==

== ENCOUNTER → 2021-01-06 | Outpatient (CLI) | payer OTHER | LOC: HYPER 01-04 14:53 | PROVIDERS: ATTEND Emergency Medicine | DX: E11.621 Type 2 diabetes mellitus with foot ulcer (principal); L89.623 Pressure ulcer of left heel, stage 3; L97.421 Non-pressure chronic ulcer of left heel and midfoot limited to breakdown of skin; S50.311A Abrasion of right elbow, initial encounter; S80.212A Abrasion, left knee, initial encounter; E11.51 Type 2 diabetes mellitus with diabetic peripheral angiopathy without gangrene; E11.69 Type 2 diabetes mellitus with other specified complication; I10 Essential (primary) hypertension; E66.9 Obesity, unspecified; M19.90 Unspecified osteoarthritis, unspecified site; Z68.42 Body mass index [BMI] 45.0-49.9, adult; Z79.4 Long term (current) use of insulin; Z79.01 Long term (current) use of anticoagulants; Z89.511 Acquired absence of right leg below knee; Z89.411 Acquired absence of right great toe; Z89.421 Acquired absence of other right toe(s); Z98.890 Other specified postprocedural states; Z79.899 Other long term (current) drug therapy; W19.XXXA Unspecified fall, initial encounter; Y93.89 Activity, other specified; Y92.89 Other specified places as the place of occurrence of the external cause; Y99.8 Other external cause status ==